=== PATIENT | female | born 1945 | race Caucasian/White ===

== ENCOUNTER 2017-05-24 10:38 | Emergency (ER) | payer MEDICARE, OTHER ==
[2017-05-24 10:52] VITALS: BP 150/70
[2017-05-24] MEDS ORDERED: Sodium Chloride 0.9% 10 ML Syringe FLUSH PRN (11:23)
[2017-05-24] MEDS ORDERED: Sodium Chloride 0.9% 1,000 ML IV ONE ×2 (11:24→12:20)
--- NOTE | 2017-05-24 11:28 | EDM.PDOC ---
ED HPI GENERAL MEDICAL PROBLEM - General Chief Complaint: General Stated Complaint: CHEMO ON THURSDAY-IN PAIN TODAY Time Seen by Provider: 05/24/17 11:05 Source of Information: Reports: Patient History Limitations: Reports: No Limitations - History of Present Illness INITIAL COMMENTS - FREE TEXT/NARRATIVE: 72-year-old female presents for evaluation and treatment of body aches and joint aches. Patient reports that she had her second round of chemotherapy on . She states that she developed severe body aches today. This occurred with her previous round of chemotherapy. She states that she was able to hold off over the weekend and was seen the following Thursday. She was given 5 L of fluid over 2-3 days. She states that the fluid helped greatly with the aches at that time. She is currently complaining of shooting pains throughout her abdomen , joints, legs and breasts. She denies any fevers, chills, vomiting, abdominal pain, diarrhea, cough, shortness of breath or chest pain. She states that she tried Tylenol and Benadryl for her symptoms. She also tried and nausea medication last night. Nausea is now mostly improved. She states with her first round of chemotherapy she did get Neulasta. She did not get this neulasta this time. Patient had vaginal bleeding around [facility]. She was subsequently diagnosed with uterine cancer in March. She had a hysterectomy with bilateral salpingo- oophorectomy on April 02. She has now been seeing Dr. Moore here in [facility]. Patient reports that she is only been taking Tylenol for pain. She does not want to take any narcotic pain medication. She states she has been avoiding Motrin as she took some last time and it increased her creatinine. Generalized Pain Score (Numeric/FACES): 7 - Related Data Allergies Allergy/AdvReac Type Severity Reaction Status Date / Time No Known Allergies Allergy Verified 05/24/17 10:52 Home Meds: Home Meds Irbesartan [Avapro] 300 mg PO DAILY 05/24/17 [History] Metoprolol/Hydrochlorothiazide [Metoprolol-HCTZ 100-25 MG] 1 tab PO DAILY [History] amLODIPine [Norvasc] 5 mg PO DAILY 05/24/17 [History] Past Medical History Cardiovascular History: Reports: Hypertension Oncologic (Cancer) History: Reports: Uterine - Past Surgical History Female Surgical History: Reports: Hysterectomy, Salpingo-Oophorectomy Social & Family History - Tobacco Use Smoking Status *Q: Never Smoker - Caffeine Use Caffeine Use: Reports: None - Recreational Drug Use Recreational Drug Use: No ED ROS GENERAL - Review of Systems Review Of Systems: See Below Constitutional: Denies: Fever, Chills Respiratory: Denies: Shortness of Breath, Cough Cardiovascular: Denies: Chest Pain GI/Abdominal: Reports: Abdominal Pain, Nausea. Denies: Diarrhea, Vomiting Musculoskeletal: Reports: Other (reports body aches). Denies: Joint Pain ED EXAM, GENERAL - Physical Exam Exam: See Below Exam Limited By: No Limitations General Appearance: Alert, WD/WN, No Apparent Distress Respiratory/Chest: No Respiratory Distress, Lungs Clear, Normal Breath Sounds Cardiovascular: Normal Peripheral Pulses, Regular Rate, Rhythm, No Murmur Neurological: Alert, Oriented, Normal Cognition Psychiatric: Normal Affect, Normal Mood Skin Exam: Warm, Dry, Normal Color Course - Vital Signs Last Recorded V/S: Last Vital Signs Temp 36.1 C 05/24/17 10:49 Pulse 66 05/24/17 10:49 Resp 16 05/24/17 10:49 BP 150/70 H 05/24/17 10:49 Pulse Ox 97 05/24/17 10:49 - Orders/Labs/Meds Orders: Active Orders 24 hr Category Date Time Status Peripheral IV Care [RC] . DIRECTED Care 05/24/17 11:23 Active Peripheral IV Insertion Adult [OM.PC] Routine Oth 05/24/17 11:23 Ordered Labs: Laboratory Tests 05/24/17 05/24/17 05/24/17 Range/Units 11:25 11:25 12:30 WBC 6.02 (3.98-10.04) K/mm3 RBC 3.46 L (3.98-5.22) M/mm3 Hgb 9.2 L (11.2-15.7) gm/L Hct 28.8 L (34.1-44.9) % MCV 83.2 (79.4-94.8) fl MCH 26.6 (25.6-32.2) pg MCHC 31.9 L (32.2-35.5) g/dl RDW Std Deviation 48.8 H (36.4-46.3) fL Plt Count 291 (182-369) K/mm3 MPV 10.5 (9.4-12.3) fl Neutrophils % (Manual) 79 H (40-60) % Band Neutrophils % 0 (0-10) % Lymphocytes % (Manual) 19 L (20-40) % Atypical Lymphs % 0 % Monocytes % (Manual) 2 (2-10) % Eosinophils % (Manual) 0 L (0.7-5.8) % Basophils % (Manual) 0 L (0.1-1.2) Platelet Estimate Adequate RBC Morph Comment Normal Sodium 138 (136-145) mEq/L Potassium 4.0 (3.5-5.1) mEq/L Chloride 104 (98-107) mEq/L Carbon Dioxide 26 (21-32) mEq/L Anion Gap 12.0 (5-15) BUN 25 H (7-18) mg/dL Creatinine 1.2 H (0.55-1.02) mg/dL Est Cr Clr Drug Dosing 40.25 mL/min Estimated GFR (MDRD) 44 (>60) mL/min BUN/Creatinine Ratio 20.8 H (14-18) Glucose 92 (83-115) mg/dL Calcium 8.8 (8.5-10.1) mg/dL Magnesium 1.8 (1.8-2.4) mg/dl Total Bilirubin 0.6 (0.2-1.0) mg/dL AST 41 H (15-37) U/L ALT 50 (14-59) U/L Alkaline Phosphatase 78 (46-116) U/L Total Protein 6.1 L (6.4-8.2) g/dl Albumin 3.1 L (3.4-5.0) g/dl Globulin 3.0 gm/dL Albumin/Globulin Ratio 1.0 (1-2) Urine Color Yellow (Yellow) Urine Appearance Clear (Clear) Urine pH 7.0 (5.0-8.0) Ur Specific [place] 1.015 (1.005-1.030) Urine Protein Negative (Negative) Urine Glucose (UA) Negative (Negative) Urine Ketones Negative (Negative) Urine Occult Blood Negative (Negative) Urine Nitrite Negative (Negative) Urine Bilirubin Negative (Negative) Urine Urobilinogen 0.2 (0.2-1.0) Ur Leukocyte Esterase Negative (Negative) Urine RBC Not seen (0-5) /hpf Urine WBC 0-5 (0-5) /hpf Ur Epithelial Cells 0-5 (0-5) /hpf Urine Bacteria Not seen (FEW) /hpf Urine Mucus Not seen (FEW) /hpf Meds: Medications Discontinued Medications Generic Name Dose Route Start Last Admin Trade Name Andrzej PRN Reason Stop Dose Admin Sodium Chloride 1,000 mls @ 999 mls/hr 05/24/17 11:24 05/24/17 11:35 Normal Saline IV 05/24/17 12:24 999 mls/hr ONETIME ONE Administration Sodium Chloride 1,000 mls @ 999 mls/hr 05/24/17 12:20 05/24/17 12:44 Normal Saline IV 05/24/17 13:20 999 mls/hr ONETIME ONE Administration Sodium Chloride 10 ml 05/24/17 11:23 05/24/17 11:35 Saline Flush FLUSH 10 ml ASDIRECTED PRN Administration Keep Vein Open - Re-Assessments/Exams Free Text/Narrative Re-Assessment/Exam: 05/24/17 13:53 labs returned: wbc is 6.02, hgb is 9.2 and plts are 291 sodium is 138, potassium is 4.0 and chloride is 104. anion gap is 12.0. creatinine is 1.2. glucose is 91 magnesium is 1.8 UA is negative for nitrites, leuks, protein, glucose and ketones, specific gravity is 1.015 Patient feels improved after 2 L of normal saline. She has declined pain medication throughout her stay. She has hydrocodone at home but does not want to take anything other than Tylenol for pain. We will discharge home at this time. Discharge instructions as documented. Departure - Departure Time of Disposition: 13:53 Disposition: Home, Self-Care 01 Condition: Fair Clinical Impression: Joint pain following chemotherapy - Discharge Information Referrals: Lucía Duque MD [Primary Care Provider] - Forms: ED Department Discharge Additional Instructions: Contact your oncologist office tomorrow to let them know you were here and received fluids. Your hemoglobin was also 9.2 in the ER today. This is something we should follow closely. go home nad rest. make sure you are drinking plenty of fluids. Take your pain medication you have at home if you need anything for pain. Please return to the ER if your symptoms change or worsen. - My Orders Last 24 Hours: My Active Orders 05/24/17 11:23 Peripheral IV Care [RC] . DIRECTED Peripheral IV Insertion Adult [OM.PC] Routine - Assessment/Plan Last 24 Hours: My Active Orders 05/24/17 11:23 Peripheral IV Care [RC] . DIRECTED Peripheral IV Insertion Adult [OM.PC] Routine
== END 2017-05-24 14:04 | disposition home or self-care (01) ==
LOC: JD.ED 10:38
DX: M25.50 Pain in unspecified joint (principal); G89.18 Other acute postprocedural pain; I10 Essential (primary) hypertension; Z90.710 Acquired absence of both cervix and uterus
CPT/HCPCS: 36415; 80053; 81001; 83735; 85025; 96360; 96361; 99283; J7040; J7050

== ENCOUNTER 2017-08-29 16:11 | Emergency (ER) | payer MEDICARE, OTHER ==
--- NOTE | 2017-08-29 16:22 | EDM.PDOC ---
ED HPI GENERAL MEDICAL PROBLEM - General Chief Complaint: General Stated Complaint: CARDIAC ISSUES Time Seen by Provider: 08/29/17 16:12 - History of Present Illness INITIAL COMMENTS - FREE TEXT/NARRATIVE: 72 year old female evaluated here in the emergency room with what looks like new onset atrial fibrillation. The patient was here receiving outpatient fluids and Zofran following chemotherapy and she was noted to be in a rapid irregular rhythm rate between 100 140. The patient is on Xarelto for a pulmonary embolism but has no history of atrial fibrillation in the past. The patient is having no chest pain chest pressure no palpitations no breathing difficulties no shortness of breath the patient is just finishing a several month regimen of chemotherapy for uterine cancer. She has no history of valvular heart disease. She's taking Xarelto 20 mg daily. - Related Data Allergies Allergy/AdvReac Type Severity Reaction Status Date / Time No Known Allergies Allergy Verified 08/29/17 16:19 Home Meds: Home Meds Irbesartan [Avapro] 300 mg PO DAILY 05/24/17 [History] Metoprolol/Hydrochlorothiazide [Metoprolol-HCTZ 100-25 MG] 1 tab PO DAILY [History] amLODIPine [Norvasc] 5 mg PO DAILY 05/24/17 [History] Acetaminophen [Tylenol] 650 mg PO DAILY PRN 07/23/17 [History] Hydrocodone/Acetaminophen [[place] 5-325] 1 tab PO Q6HR PRN 07/23/17 [History] Loperamide [Imodium] 1 tab PO ASDIRECTED PRN 07/23/17 [History] Omeprazole Magnesium [Prilosec Otc] 20 mg PO DAILY 07/23/17 [History] Prochlorperazine Maleate [Compazine] 10 mg PO QID PRN 07/23/17 [History] Rivaroxaban [Xarelto] 20 mg PO DAILY 07/23/17 [History] Sennosides/Docusate Sodium [Senokot-S Tablet] 1 tab PO BID PRN 07/23/17 [History ] diphenhydrAMINE [Benadryl] 25 mg PO BID 07/23/17 [History] Past Medical History Cardiovascular History: Reports: Hypertension Oncologic (Cancer) History: Reports: Uterine - Past Surgical History Female Surgical History: Reports: Hysterectomy, Salpingo-Oophorectomy Social & Family History - Tobacco Use Smoking Status *Q: Never Smoker - Caffeine Use Caffeine Use: Reports: None - Recreational Drug Use Recreational Drug Use: No ED ROS GENERAL - Review of Systems Review Of Systems: See Below Constitutional: Reports: Other (Patient has had some generalized weakness and dizziness following her last round of chemotherapy on 2 days ago) HEENT: Reports: No Symptoms Respiratory: Reports: No Symptoms Cardiovascular: Reports: No Symptoms GI/Abdominal: Reports: Nausea. Denies: Abdominal Pain, Constipation, Diarrhea : Reports: No Symptoms Neurological: Reports: No Symptoms ED EXAM, GENERAL - Physical Exam Exam: See Below Exam Limited By: No Limitations General Appearance: Alert, No Apparent Distress Head: Atraumatic, Normocephalic Neck: Normal Inspection, Supple, Non-Tender, Full Range of Motion. No: Lymphadenopathy (L), Lymphadenopathy (R), Thyromegaly Respiratory/Chest: No Respiratory Distress, Lungs Clear, Normal Breath Sounds Cardiovascular: No Edema, Tachycardia (Rate 110 to 140s), Irregularly Irregular GI/Abdominal: Normal Bowel Sounds, Soft EKG INTERPRETATION EKG Date: 08/29/17 Rhythm: A-Fib Killen: LAD-Left Killen Deviation P-Wave: Absent QRS: Normal ST-T: Normal QT: Normal Comparison: NA - No Prior EKG Course - Vital Signs Last Recorded V/S: Last Vital Signs Temp 36.1 C 08/29/17 16:20 Pulse 138 H 08/29/17 16:20 Resp 22 H 08/29/17 16:20 BP 120/90 08/29/17 16:20 Pulse Ox 96 08/29/17 16:20 - Orders/Labs/Meds Orders: Active Orders 24 hr Category Date Time Status Chest 1V Frontal [CR] Stat Exams 08/29/17 16:22 Taken Sodium Chloride 0.9% [Normal Saline] 1,000 ml Med 08/29/17 17:45 Active IV ASDIRECTED Medication Orders Sodium Chloride (Normal Saline) 1,000 mls @ 300 mls/hr IV ASDIRECTED SOFI Last Admin: 08/29/17 17:42 Dose: 300 mls/hr Labs: Laboratory Tests 08/29/17 08/29/17 08/29/17 Range/Units 16:35 16:35 16:35 WBC 4.11 (3.98-10.04) K/mm3 RBC 3.16 L (3.98-5.22) M/mm3 Hgb 9.3 L (11.2-15.7) gm/L Hct 28.4 L (34.1-44.9) % MCV 89.9 (79.4-94.8) fl MCH 29.4 (25.6-32.2) pg MCHC 32.7 (32.2-35.5) g/dl RDW Std Deviation 64.6 H (36.4-46.3) fL Plt Count 314 (182-369) K/mm3 MPV 9.6 (9.4-12.3) fl Neutrophils % (Manual) 82 H (40-60) % Band Neutrophils % 0 (0-10) % Lymphocytes % (Manual) 16 L (20-40) % Atypical Lymphs % 0 % Monocytes % (Manual) 2 (2-10) % Eosinophils % (Manual) 0 L (0.7-5.8) % Basophils % (Manual) 0 L (0.1-1.2) Platelet Estimate Adequate Poikilocytosis 1+ slight Anisocytosis 2+ moderate Tear Drop Cells Few Ovalocytes 2+ moderate PT 13.7 H (8.0-13.0) SECONDS INR 1.24 APTT 29 (22-36) SECONDS Sodium 139 (136-145) mEq/L Potassium 4.1 (3.5-5.1) mEq/L Chloride 101 (98-107) mEq/L Carbon Dioxide 23 (21-32) mEq/L Anion Gap 19.1 H (5-15) BUN 33 H (7-18) mg/dL Creatinine 1.5 H (0.55-1.02) mg/dL Est Cr Clr Drug Dosing 33.45 mL/min Estimated GFR (MDRD) 34 (>60) mL/min BUN/Creatinine Ratio 22.0 H (14-18) Glucose 152 H (83-115) mg/dL Calcium 8.2 L (8.5-10.1) mg/dL Magnesium 1.5 L (1.8-2.4) mg/dl Total Bilirubin 0.8 (0.2-1.0) mg/dL AST 93 H (15-37) U/L ALT 144 H (14-59) U/L Alkaline Phosphatase 141 H (46-116) U/L Troponin I < 0.017 (0.00-0.056) ng/mL Total Protein 7.0 (6.4-8.2) g/dl Albumin 3.5 (3.4-5.0) g/dl Globulin 3.5 gm/dL Albumin/Globulin Ratio 1.0 (1-2) TSH 3rd Generation 0.487 (0.358-3.74) uIU/mL Meds: Medications Generic Name Dose Route Start Last Admin Trade Name Freq PRN Reason Stop Dose Admin Sodium Chloride 1,000 mls @ 300 mls/hr 08/29/17 17:45 08/29/17 17:42 Normal Saline IV 300 mls/hr ASDIRECTED SOFI Administration Discontinued Medications Generic Name Dose Route Start Last Admin Trade Name Freq PRN Reason Stop Dose Admin Magnesium Sulfate 2 gm/ Premix 50 mls @ 25 mls/hr 08/29/17 17:14 08/29/17 17: 43 IV 08/29/17 19:13 25 mls/hr ONETIME ONE Administration - Re-Assessments/Exams Free Text/Narrative Re-Assessment/Exam: 08/29/17 20:24 Patient's rate has come down substantially. She was found to be little low on her magnesium she was given 2 g IV. She was also given some more fluids and is doing better I am not can increase her medication especially with her having lightheadedness because of dehydration with the chemotherapy. However she stated the close follow-up for this is absolutely uncertain when this atrial fibrillation started however the patient is on therapeutic Xarelto 20 mg daily this should be continued. However records need to be reviewed to be certain she does not have valvular heart disease. Patient is in agreement to following up in the clinic early this next week. The patient does have Zofran at home however she's never used it IV advised her to use it so she can keep fluids down and hopefully a more nutritional diet. Patient's troponin was noted to be normal today chest x-ray nonrevealing TSH normal. Departure - Departure Time of Disposition: 20:27 Disposition: Home, Self-Care 01 Clinical Impression: Atrial fibrillation Referrals: Lucía Duque MD [Primary Care Provider] - Forms: ED Department Discharge Additional Instructions: Return to the emergency room with any questions problems or worsening symptoms. Follow up with her regular physician this next week. Continue your routine medications including the Xaralto. Use your Zofran as needed to prevent dehydration and to hopefully make it feel better. - My Orders Last 24 Hours: My Active Orders 08/29/17 16:22 Chest 1V Frontal [CR] Stat 08/29/17 17:45 Sodium Chloride 0.9% [Normal Saline] 1,000 ml IV ASDIRECTED - Assessment/Plan Last 24 Hours: My Active Orders 08/29/17 16:22 Chest 1V Frontal [CR] Stat 08/29/17 17:45 Sodium Chloride 0.9% [Normal Saline] 1,000 ml IV ASDIRECTED
[2017-08-29 16:29] VITALS: BP 120/90
[2017-08-29] MEDS ORDERED: Magnesium Sulfate/Water 2 GM in Premix Bag 1 BAG IV ONE (17:14)
[2017-08-29] MEDS ORDERED: Sodium Chloride 0.9% 1,000 ML IV SCH (17:45)
--- NOTE | 2017-08-30 09:54 | CR ---
Chest: Portable view of the chest was obtained. Comparison: No prior study. Heart size appears within normal limits. Mild tortuosity of the thoracic aorta is seen. Slight scoliosis and degenerative change is identified within the thoracic spine. Minimal discoid atelectasis is noted within the lateral left costophrenic angle. Lungs otherwise are clear. Impression: 1. Incidental findings. Nothing acute is identified on portable chest x-ray. Diagnostic code #2
== END 2017-08-29 20:45 | disposition home or self-care (01) ==
LOC: JD.ED 16:11
DX: I48.91 Unspecified atrial fibrillation (principal); I10 Essential (primary) hypertension; Z90.710 Acquired absence of both cervix and uterus; Z79.899 Other long term (current) drug therapy
CPT/HCPCS: 36415; 71010; 80053; 83735; 84443; 84484; 85025; 85610; 85730; 93005; 96360; 96361; 96365; 96366; 99285; J2405; J7040; J7050; 93010; 99284-25; J3475

== ENCOUNTER 2017-09-06 17:19 | Inpatient (IN) | payer MEDICARE, OTHER ==
[2017-09-06] MEDS ORDERED: Sodium Chloride 0.9% 10 ML Syringe FLUSH PRN (17:34)
--- NOTE | 2017-09-06 17:42 | EDM.PDOC ---
ED HPI GENERAL MEDICAL PROBLEM - General Chief Complaint: General Stated Complaint: VOMITING/ FALL/ DEHYDRATION Time Seen by Provider: 09/06/17 17:25 Source of Information: Reports: Patient, Family History Limitations: Reports: No Limitations - History of Present Illness INITIAL COMMENTS - FREE TEXT/NARRATIVE: The patient presents with syncope, generalized weakness and dehydration. She is currently being treated for uterine cancer. She had a hystorectomy with salpingoophorectomy and now chemo. She is on her last treatment. This was given to her over a week ago. It has been the worse so fare. She has lots of nausea and vomiting. She is trying to eat and drink but it is hard to keep hydrated. She traveled down to [place] to see her [employer]/Onc doctor and she tried to keep up with the fluids. She had some family over for supper tonight and she got lightheaded and fell out of her chair. Her says she did hit her head. She was out for a few seconds. She has pain to her left shoulder. She did not hurt her head. She has no headache now. She was recently diagnosed with atrial fib. She is on xeralto for PE and now A-fib. She has needed IV hydration and blood transfusion through the rounds of chemo. Onset: Sudden Duration: Minutes: Severity: Moderate Improves with: Reports: None Worsens with: Reports: None Context: Reports: Activity (She was sitting at the table and just finished supper) Associated Symptoms: Reports: Nausea/Vomiting, Weakness. Denies: Chest Pain, Fever/Chills, Loss of Appetite, Shortness of Breath Left Shoulder Pain Score (Numeric/FACES): 4 - Related Data Allergies Allergy/AdvReac Type Severity Reaction Status Date / Time No Known Allergies Allergy Verified 08/29/17 16:19 Home Meds: Home Meds Irbesartan [Avapro] 300 mg PO DAILY 05/24/17 [History] Metoprolol/Hydrochlorothiazide [Metoprolol-HCTZ 100-25 MG] 1 tab PO DAILY [History] amLODIPine [Norvasc] 5 mg PO DAILY 05/24/17 [History] Acetaminophen [Tylenol] 650 mg PO DAILY PRN 07/23/17 [History] Loperamide [Imodium] 1 tab PO ASDIRECTED PRN 07/23/17 [History] Omeprazole Magnesium [Prilosec Otc] 20 mg PO DAILY 07/23/17 [History] Prochlorperazine Maleate [Compazine] 10 mg PO QID PRN 07/23/17 [History] Rivaroxaban [Xarelto] 20 mg PO DAILY 07/23/17 [History] Sennosides/Docusate Sodium [Senokot-S Tablet] 1 tab PO BID PRN 07/23/17 [History ] Past Medical History Cardiovascular History: Reports: Hypertension Oncologic (Cancer) History: Reports: Uterine - Past Surgical History Female Surgical History: Reports: Hysterectomy, Salpingo-Oophorectomy Social & Family History - Tobacco Use Smoking Status *Q: Never Smoker - Caffeine Use Caffeine Use: Reports: None - Recreational Drug Use Recreational Drug Use: No ED ROS GENERAL - Review of Systems Review Of Systems: See Below Constitutional: Reports: No Symptoms HEENT: Reports: No Symptoms Respiratory: Reports: No Symptoms Cardiovascular: Reports: Syncope Endocrine: Reports: No Symptoms GI/Abdominal: Reports: No Symptoms : Reports: No Symptoms Musculoskeletal: Reports: Shoulder Pain (Left) Skin: Reports: No Symptoms Neurological: Reports: No Symptoms ED EXAM, GENERAL - Physical Exam Exam: See Below Exam Limited By: No Limitations General Appearance: Alert, No Apparent Distress Ears: Normal External Exam Nose: Normal Inspection Head: Atraumatic, Normocephalic Neck: Normal Inspection Respiratory/Chest: No Respiratory Distress, Lungs Clear, Normal Breath Sounds Cardiovascular: Regular Rate, Rhythm, No Edema, No Murmur GI/Abdominal: Soft, Non-Tender, No Organomegaly, No Mass Back Exam: Normal Inspection Extremities: Normal Inspection Neurological: Alert, Oriented, No Motor/Sensory Deficits Skin Exam: Warm, Dry Course - Vital Signs Last Recorded V/S: Last Vital Signs Temp 96.1 F 09/06/17 17:32 Pulse 91 09/06/17 17:32 Resp 20 09/06/17 17:32 BP 123/85 09/06/17 17:32 Pulse Ox 100 09/06/17 17:32 - Orders/Labs/Meds Orders: Active Orders 24 hr Category Date Time Status Cardiac Monitoring [RC] . DIRECTED Care 09/06/17 17:34 Active EKG Documentation Completion [RC] STAT Care 09/06/17 17:35 Active Oxygen Therapy [RC] PRN Care 09/06/17 17:34 Active Peripheral IV Care [RC] . DIRECTED Care 09/06/17 17:34 Active Head wo Cont [CT] Stat Exams 09/06/17 17:35 Ordered Shoulder Comp Lt [CR] Stat Exams 09/06/17 17:35 Taken Ondansetron [Zofran] Med 09/06/17 19:23 Once 4 mg IVPUSH ONETIME ONE Sodium Chloride 0.9% [Normal Saline] 1,000 ml Med 09/06/17 17:45 Active IV .BOLUS Sodium Chloride 0.9% [Saline Flush] Med 09/06/17 17:34 Active 10 ml FLUSH ASDIRECTED PRN Sodium Chloride 0.9% with KCl 20 mEq @ 150 mL/Hr (1000 Med 09/06/17 19:30 Ordered mL) NS + KCl 20mEq/L [Normal Saline with 20 mEq KCl] 1,000 ml IV ASDIRECTED Peripheral IV Insertion Adult [OM.PC] Stat Oth 09/06/17 17:34 Ordered Medication Orders Sodium Chloride (Normal Saline) 1,000 mls @ 1,000 mls/hr IV .BOLUS SOFI Last Admin: 09/06/17 17:50 Dose: 1,000 mls/hr Potassium Chloride/Sodium Chloride (Normal Saline With 20 Meq Kcl) 1,000 mls @ 150 mls/hr IV ASDIRECTED SOFI Ondansetron HCl (Zofran) 4 mg IVPUSH ONETIME ONE Stop: 09/06/17 19:24 Sodium Chloride (Saline Flush) 10 ml FLUSH ASDIRECTED PRN PRN Reason: Keep Vein Open Last Admin: 09/06/17 17:50 Dose: 10 ml Labs: Laboratory Tests 09/06/17 09/06/17 Range/Units 17:45 17:45 WBC 3.16 L (3.98-10.04) K/mm3 RBC 2.85 L (3.98-5.22) M/mm3 Hgb 8.7 L (11.2-15.7) gm/L Hct 25.3 L (34.1-44.9) % MCV 88.8 (79.4-94.8) fl MCH 30.5 (25.6-32.2) pg MCHC 34.4 (32.2-35.5) g/dl RDW Std Deviation 56.0 H (36.4-46.3) fL Plt Count 145 L (182-369) K/mm3 MPV 11.1 (9.4-12.3) fl Neut % (Auto) 22.5 L (34.0-71.1) % Lymph % (Auto) 38.0 (19.3-51.7) % [place] % (Auto) 33.5 H (4.7-12.5) % Eos % (Auto) 0 L (0.7-5.8) Baso % (Auto) 0.3 (0.1-1.2) % Neut # (Auto) 0.71 L (1.56-6.13) K/mm3 Lymph # (Auto) 1.20 (1.18-3.74) K/mm3 [place] # (Auto) 1.06 H (0.24-0.36) K/mm3 Eos # (Auto) 0.00 L (0.04-0.36) K/mm3 Baso # (Auto) 0.01 (0.01-0.08) K/mm3 Manual Slide Review Abnormal smear Sodium 129 L (136-145) mEq/L Potassium 2.7 L (3.5-5.1) mEq/L Chloride 90 L (98-107) mEq/L Carbon Dioxide 24 (21-32) mEq/L Anion Gap 17.7 H (5-15) BUN 27 H (7-18) mg/dL Creatinine 1.6 H (0.55-1.02) mg/dL Est Cr Clr Drug Dosing 30.19 mL/min Estimated GFR (MDRD) 32 (>60) mL/min BUN/Creatinine Ratio 16.9 (14-18) Glucose 149 H (83-115) mg/dL Calcium 8.4 L (8.5-10.1) mg/dL Total Bilirubin 1.2 H (0.2-1.0) mg/dL AST 20 (15-37) U/L ALT 46 (14-59) U/L Alkaline Phosphatase 86 (46-116) U/L Troponin I < 0.017 (0.00-0.056) ng/mL Total Protein 6.5 (6.4-8.2) g/dl Albumin 2.7 L (3.4-5.0) g/dl Globulin 3.8 gm/dL Albumin/Globulin Ratio 0.7 L (1-2) Meds: Medications Generic Name Dose Route Start Last Admin Trade Name Freq PRN Reason Stop Dose Admin Sodium Chloride 1,000 mls @ 1,000 mls/hr 09/06/17 17:45 09/06/17 17:50 Normal Saline IV 1,000 mls/hr .BOLUS SOFI Administration Potassium Chloride/Sodium Chloride 1,000 mls @ 150 mls/hr 09/06/17 19:30 Normal Saline With 20 Meq Kcl IV ASDIRECTED SOFI Ondansetron HCl 4 mg 09/06/17 19:23 Zofran IVPUSH 09/06/17 19:24 ONETIME ONE Sodium Chloride 10 ml 09/06/17 17:34 09/06/17 17:50 Saline Flush FLUSH 10 ml ASDIRECTED PRN Administration Keep Vein Open - Re-Assessments/Exams Free Text/Narrative Re-Assessment/Exam: 09/06/17 17:44 I ordered an IV NS 1L bolus, labs, EKG, CT of her head and x-ray of her left shoulder. 09/06/17 19:08 Her WBC was low at 3.16. Her Hgb is low at 8.7. Her platelets are low at 145. Her Na is low at 129. Her K was low at 2.7. Her creatinine is elevated at 1.6. Her calcium is low at 8.4. Her troponin is negative. The x-ray of her shoulder I thought showed a fracture. It was only in one view. I had [facility] look at it and they felt that was an osteophyte and there was nothing acute seen on x-ray. She is in CT right now. 09/06/17 19:10 Her EKG shows A-fib at a rate of 81 with some borderline T wave abnormalities in the anterior leads. 09/06/17 19:[address] of her head shows nothing acute. I have ordered an IV NS with 20meq of KCL at 150mL/hr and zofran 4mg IV. 09/06/17 19:28 I feel she is still to weak to go home. I called Dr Bolden and she agreed to the admission. Departure - Departure Time of Disposition: 19:30 Disposition: Admitted As Inpatient 67 Condition: Poor Clinical Impression: Generalized weakness, Pancytopenia due to chemotherapy, Hyponatremia, Hypokalemia Atrial fibrillation Qualifiers: Atrial fibrillation type: chronic Qualified Code(s): I48.2 - Chronic atrial fibrillation Syncope Qualifiers: Syncope type: unspecified Qualified Code(s): R55 - Syncope and collapse Uterine cancer Qualifiers: Malignant neoplasm of uterus location: unspecified site of uterus Qualified Code(s): C55 - Malignant neoplasm of uterus, part unspecified - Discharge Information Referrals: Lucía Duque MD [Primary Care Provider] - Forms: ED Department Discharge - My Orders Last 24 Hours: My Active Orders 09/06/17 17:34 Cardiac Monitoring [RC] . DIRECTED Oxygen Therapy [RC] PRN Peripheral IV Care [RC] . DIRECTED Sodium Chloride 0.9% [Saline Flush] 10 ml FLUSH ASDIRECTED PRN Peripheral IV Insertion Adult [OM.PC] Stat 09/06/17 17:35 EKG Documentation Completion [RC] STAT Head wo Cont [CT] Stat Shoulder Comp Lt [CR] Stat 09/06/17 17:45 Sodium Chloride 0.9% [Normal Saline] 1,000 ml IV .BOLUS 09/06/17 19:23 Ondansetron [Zofran] 4 mg IVPUSH ONETIME ONE 09/06/17 19:30 Sodium Chloride 0.9% with KCl 20 mEq @ 150 mL/Hr (1000 mL) NS + KCl 20mEq/L [ Normal Saline with 20 mEq KCl] 1,000 ml IV ASDIRECTED - Assessment/Plan Last 24 Hours: My Active Orders 09/06/17 17:34 Cardiac Monitoring [RC] . DIRECTED Oxygen Therapy [RC] PRN Peripheral IV Care [RC] . DIRECTED Sodium Chloride 0.9% [Saline Flush] 10 ml FLUSH ASDIRECTED PRN Peripheral IV Insertion Adult [OM.PC] Stat 09/06/17 17:35 EKG Documentation Completion [RC] STAT Head wo Cont [CT] Stat Shoulder Comp Lt [CR] Stat 09/06/17 17:45 Sodium Chloride 0.9% [Normal Saline] 1,000 ml IV .BOLUS 09/06/17 19:23 Ondansetron [Zofran] 4 mg IVPUSH ONETIME ONE 09/06/17 19:30 Sodium Chloride 0.9% with KCl 20 mEq @ 150 mL/Hr (1000 mL) NS + KCl 20mEq/L [ Normal Saline with 20 mEq KCl] 1,000 ml IV ASDIRECTED
[2017-09-06] MEDS ORDERED: Sodium Chloride 0.9% 1,000 ML IV SCH (17:45)
[2017-09-06] MEDS ORDERED: Ondansetron 4 MG/2 ML SDV IVPUSH ONE (19:23)
[2017-09-06] MEDS: NS + KCl 20mEq/L 1,000 ML IV SCH (19:31)
--- NOTE | 2017-09-06 19:55 | PCM.HP ---
H&P History of Present Illness - General Date of Service: 09/06/17 Admit Problem/Dx: Admission Diagnosis/Problem Admission Diagnosis/Problem Syncope Source of Information: Patient, Family, Provider History Limitations: Reports: No Limitations - History of Present Illness Initial Comments - Free Text/Narative: 72 year old female recently completed 6 cycles of CTX, drove back from [place] where she followed up with her surgeon of record. Presents after a 4 day fast with no solid food and minimal liquid ingestion; she passed out at the dinner table. She has had recent blood transfusion post chemo, currently her counts appear to be stable. Clarification regrading her baseline and the adam is needed. Additionally she recently developed A fib; moreover has been diagnosed with a DVT, and was started on Xarelto. She does not have a port because her veins are "too big" and she does not need it. Lab results document electrolyte abnormalities and dehydration with acute renal failure. She reports have 3-4 glasses of water/beverage in 5 days and nothing to eat. Onset of Symptoms: Reports: Gradual Duration of Symptoms: Reports: Week(s):, Getting Worse Location: Reports: Generalized Quality: Reports: Same as Previous Episode Improves with: Reports: Medication Worsens with: Reports: None Associated Symptoms: Reports: Loss of Appetite, Malaise, Nausea/Vomiting, Weakness Left Shoulder Pain Score (Numeric/FACES): 4 - Related Data Allergies/Adverse Reactions: Allergies Allergy/AdvReac Type Severity Reaction Status Date / Time No Known Allergies Allergy Verified 08/29/17 16:19 Home Medications: Home Meds Irbesartan [Avapro] 300 mg PO DAILY 05/24/17 [History] Metoprolol/Hydrochlorothiazide [Metoprolol-HCTZ 100-25 MG] 1 tab PO DAILY [History] amLODIPine [Norvasc] 5 mg PO DAILY 05/24/17 [History] Acetaminophen [Tylenol] 650 mg PO DAILY PRN 07/23/17 [History] Loperamide [Imodium] 1 tab PO ASDIRECTED PRN 07/23/17 [History] Omeprazole Magnesium [Prilosec Otc] 20 mg PO DAILY 07/23/17 [History] Prochlorperazine Maleate [Compazine] 10 mg PO QID PRN 07/23/17 [History] Rivaroxaban [Xarelto] 20 mg PO DAILY 07/23/17 [History] Sennosides/Docusate Sodium [Senokot-S Tablet] 1 tab PO BID PRN 07/23/17 [History ] Past Medical History Cardiovascular History: Reports: Hypertension Psychiatric History: Reports: Depression Oncologic (Cancer) History: Reports: Uterine - Past Surgical History Female Surgical History: Reports: Hysterectomy, Salpingo-Oophorectomy Social & Family History - Tobacco Use Smoking Status *Q: Never Smoker Used Tobacco, but Quit: Yes Month Tobacco Last Used: 50 yrs ago - Caffeine Use Caffeine Use: Reports: None - Recreational Drug Use Recreational Drug Use: No H&P Review of Systems - Review of Systems: Review Of Systems: See Below General: Reports: Malaise, Weakness, Fatigue, Decreased Appetite HEENT: Reports: No Symptoms Pulmonary: Reports: No Symptoms Cardiovascular: Reports: Lightheadedness Gastrointestinal: Reports: Decreased Appetite, Nausea, Vomiting Genitourinary: Reports: Other (decreased) Musculoskeletal: Reports: No Symptoms Skin: Reports: No Symptoms Psychiatric: Reports: No Symptoms Neurological: Reports: Dizziness Hematologic/Lymphatic: Reports: Anemia Immunologic: Reports: No Symptoms Exam - Exam Exam: See Below - Vital Signs Vital Signs: Last Vital Signs Temp 35.6 C 09/06/17 17:32 Pulse 91 09/06/17 17:32 Resp 20 09/06/17 17:32 BP 123/85 09/06/17 17:32 Pulse Ox 100 09/06/17 17:32 Weight: 90.718 kg - Exam Quality Assessment: DVT Prophylaxis General: Alert, Oriented, Cooperative HEENT: Conjunctiva Clear, Pupils Equal, Pupils Reactive, Glasses, PERRLA Neck: Supple, Trachea Midline Lungs: Normal Respiratory Effort, Decreased Breath Sounds Cardiovascular: Regular Rate, Irregular Rhythm, Tachycardia GI/Abdominal Exam: Normal Bowel Sounds, Soft, Non-Tender, No Organomegaly, No Distention (Female) Exam: Deferred Rectal (Female) Exam: Deferred Back Exam: Normal Inspection Extremities: Normal Inspection, Slow Capillary Refill Skin: Warm Neurological: Cranial Nerves Intact Neuro Extensive - Mental Status: Alert, Oriented x3 Neuro Extensive - Motor, Sensory, Reflexes: CN II-XII Intact Psychiatric: Alert - Patient Data Result Diagrams: 09/06/17 17:45 09/06/17 17:45 *Q Meaningful Use (ADM) - VTE *Q VTE Criteria *Q: - Stroke *Q Stroke Criteria *Q: - AMI *Q AMI Criteria *Q: - Problem List (1) Atrial fibrillation SNOMED Code(s): 53095927 ICD Code: I48.91 - UNSPECIFIED ATRIAL FIBRILLATION Status: Acute Current Visit: Yes Qualifiers: Atrial fibrillation type: chronic Qualified Code(s): I48.2 - Chronic atrial fibrillation (2) Generalized weakness SNOMED Code(s): 89050183 ICD Code: R53.1 - WEAKNESS Status: Acute Current Visit: Yes (3) Hypokalemia SNOMED Code(s): 39550715 ICD Code: E87.6 - HYPOKALEMIA Status: Acute Current Visit: Yes (4) Hyponatremia SNOMED Code(s): 67913362 ICD Code: E87.1 - HYPO-OSMOLALITY AND HYPONATREMIA Status: Acute Current Visit: Yes (5) Pancytopenia due to chemotherapy SNOMED Code(s): 3948894 ICD Code: D61.810 - ANTINEOPLASTIC CHEMOTHERAPY INDUCED PANCYTOPENIA Status : Acute Current Visit: Yes (6) Syncope SNOMED Code(s): 132995343 ICD Code: R55 - SYNCOPE AND COLLAPSE Status: Acute Current Visit: Yes Qualifiers: Syncope type: unspecified Qualified Code(s): R55 - Syncope and collapse (7) Uterine cancer SNOMED Code(s): 588463075 ICD Code: C55 - MALIGNANT NEOPLASM OF UTERUS, PART UNSPECIFIED Status: Acute Current Visit: Yes Qualifiers: Malignant neoplasm of uterus location: unspecified site of uterus Qualified Code(s): C55 - Malignant neoplasm of uterus, part unspecified (8) Joint pain following chemotherapy SNOMED Code(s): 93281695 ICD Code: M25.50 - PAIN IN UNSPECIFIED JOINT; G89.18 - OTHER ACUTE POSTPROCEDURAL PAIN Status: Acute Current Visit: No Problem List Initiated/Reviewed/Updated: Yes Orders Last 24hrs: Medication Orders Sodium Chloride (Normal Saline) 1,000 mls @ 1,000 mls/hr IV .BOLUS [facility] Last Admin: 09/06/17 17:50 Dose: 1,000 mls/hr Potassium Chloride/Sodium Chloride (Normal Saline With 20 Meq Kcl) 1,000 mls @ 150 mls/hr IV ASDIRECTED SOFI Last Admin: 11/05/17 19:31 Dose: 150 mls/hr Sodium Chloride (Saline Flush) 10 ml FLUSH ASDIRECTED PRN PRN Reason: Keep Vein Open Last Admin: 09/06/17 17:50 Dose: 10 ml Assessment/Plan Comment:: Impression: Endometrial cancer S/P CTX, 6 cycles Dehydration with subsequent syncopal episode ARF Abnormal electrolytes: K, Na Pancytopenia Chronic HTN Plan: IVF Clear liquid diet advance as tolerated Antiemetic Megace Dietary consult SW/PT/OT consults Home meds Daily labs EMR from [facility] DVT/GI prophylaxis
[2017-09-06] MEDS ORDERED: Magnesium Sulfate/Water 2 GM in Premix Bag 1 BAG IV ONE (19:58)
[2017-09-06] MEDS ORDERED: Ondansetron 4 MG/2 ML SDV IVPUSH PRN (19:58)
[2017-09-06] MEDS ORDERED: Scopolamine 1.5 MG Transdermal Patch TRDERM PRN (19:59)
[2017-09-06] MEDS ORDERED: Acetaminophen 325 MG Tab PO PRN (20:01)
[2017-09-06] MEDS ORDERED: Loperamide 2 MG Cap PO PRN (20:01)
[2017-09-06] MEDS ORDERED: Sodium Chloride 0.9% 1,000 ML IV ONE (20:05)
[2017-09-06] MEDS ORDERED: FLU Vacc TS 2017-18 (65yr UP)/PF 180 MCG/0.5 ML Syringe IM ONE (20:45)
[2017-09-06] MEDS: Metoprolol Tartrate 50 MG Tab PO SCH ×2 (21:34→22:13)
[2017-09-06] MEDS: Pantoprazole 40 MG Tab.CR PO SCH (21:35)
[2017-09-06] MEDS: Megestrol Susp 40 MG/ML 10 ML UD Cup PO SCH (21:36)
[2017-09-07] MEDS: NS + KCl 20mEq/L 1,000 ML IV SCH ×2 (03:58→12:20)
[2017-09-07] MEDS: Pantoprazole 40 MG Tab.CR PO SCH ×2 (05:52→17:05)
--- NOTE | 2017-09-07 07:38 | CT ---
Head CT Technique: Multiple axial sections through the brain were obtained. Intravenous contrast was not utilized. Comparison: No previous intracranial imaging. Findings: Ventricles along with basal cisterns and sulci over the convexities are mildly prominent. Mild diminished density is noted within the periventricular and subcortical white matter which is compatible with small vessel ischemic demyelination change. No other abnormal parenchymal densities are seen. No evidence of intracranial hemorrhage. No midline shift or mass effect is seen. Bone window settings were reviewed which show mucosal thickening within the sphenoid sinus and ethmoid sinuses. No air-fluid levels are seen. No acute calvarial abnormality is identified. Mild atherosclerotic calcification is seen within the carotid siphon. No acute calvarial abnormality is identified. Impression: 1. Sinus findings which are likely pre-existing and due to chronic sinusitis. 2. Mild senescent change as described above. 3. Nothing acute is identified on noncontrast head CT study. Diagnostic code #2 I agree with preliminary report issued by [facility] ([facility] preliminary report dictated on 09/06/17, 8:29 PM Central Time)
--- NOTE | 2017-09-07 07:38 | CR ---
Left shoulder: Four views of the left shoulder were obtained. Inferior spur is seen off the medial femoral head. Glenohumeral joint is otherwise unremarkable. Minimal inferior osteophytes are seen off the acromioclavicular joint. Minimal soft tissue calcification is seen compatible with minimal calcific tendinitis. No acute fracture or dislocation is identified. Impression: 1. Mild degenerative change. Minimal calcific tendinitis. 2. Left shoulder study shows nothing acute. Diagnostic code #2 I agree with preliminary report issued by [facility] ([facility] preliminary report dictated on 09/06/17, 7:45 PM Central Time)
[2017-09-07] MEDS: Rivaroxaban 10 MG Tab PO SCH (09:27)
[2017-09-07] MEDS: Metoprolol Tartrate 50 MG Tab PO SCH ×2 (09:27→20:24)
[2017-09-07] MEDS: Megestrol Susp 40 MG/ML 10 ML UD Cup PO SCH ×2 (09:28→20:23)
[2017-09-07] MEDS ORDERED: Magnesium Sulfate/Water 2 GM in Premix Bag 1 BAG IV ONE (11:47)
--- NOTE | 2017-09-07 11:47 | PCM.PN ---
- General Info Date of Service: 09/07/17 Subjective Update: Denies lightheadedness, dizziness, SOB, N/V; wants to eat and enjoyed her breakfast and lunch. Functional Status: Reports: Tolerating Diet, Ambulating, Urinating - Review of Systems General: Reports: Weakness (improved) HEENT: Reports: No Symptoms Pulmonary: Reports: No Symptoms Cardiovascular: Reports: No Symptoms Gastrointestinal: Reports: No Symptoms Genitourinary: Reports: No Symptoms Musculoskeletal: Reports: No Symptoms Skin: Reports: No Symptoms Neurological: Reports: No Symptoms Psychiatric: Reports: No Symptoms - Patient Data Vitals - Most Recent: Last Vital Signs Temp 36.1 C 09/07/17 07:52 Pulse 106 H 09/07/17 09:27 Resp 19 09/07/17 07:52 BP 129/80 09/07/17 09:27 Pulse Ox 96 09/07/17 07:52 Weight - Most Recent: 90.265 kg I&O - Last 24 Hours: Intake & Output 09/06/17 09/07/17 09/07/17 22:59 06:59 14:59 Intake Total 1991 500 Output Total 650 Balance 1341 500 Lab Results Last 24 Hours: Laboratory Results - last 24 hr 09/07/17 09/07/17 Range/Units 06:10 06:10 WBC 3.49 L (3.98-10.04) K/mm3 RBC 2.64 L (3.98-5.22) M/mm3 Hgb 7.9 L (11.2-15.7) gm/L Hct 23.8 L (34.1-44.9) % MCV 90.2 (79.4-94.8) fl MCH 29.9 (25.6-32.2) pg MCHC 33.2 (32.2-35.5) g/dl RDW Std Deviation 56.1 H (36.4-46.3) fL Plt Count 126 L (182-369) K/mm3 MPV 10.9 (9.4-12.3) fl Neut % (Auto) 27.8 L (34.0-71.1) % Lymph % (Auto) 34.4 (19.3-51.7) % [place] % (Auto) 31.2 H (4.7-12.5) % Eos % (Auto) 0 L (0.7-5.8) Baso % (Auto) 0.0 L (0.1-1.2) % Neut # (Auto) 0.97 L (1.56-6.13) K/mm3 Lymph # (Auto) 1.20 (1.18-3.74) K/mm3 [place] # (Auto) 1.09 H (0.24-0.36) K/mm3 Eos # (Auto) 0.00 L (0.04-0.36) K/mm3 Baso # (Auto) 0.00 L (0.01-0.08) K/mm3 Manual Slide Review Abnormal smear Sodium 134 L (136-145) mEq/L Potassium 3.7 (3.5-5.1) mEq/L Chloride 100 (98-107) mEq/L Carbon Dioxide 24 (21-32) mEq/L Anion Gap 13.7 (5-15) BUN 21 H (7-18) mg/dL Creatinine 1.1 H (0.55-1.02) mg/dL Est Cr Clr Drug Dosing 43.91 mL/min Estimated GFR (MDRD) 49 (>60) mL/min BUN/Creatinine Ratio 19.1 H (14-18) Glucose 96 (83-115) mg/dL Calcium 8.5 (8.5-10.1) mg/dL Magnesium 1.8 (1.8-2.4) mg/dl C-Reactive Protein 9.1 H* (<1.0) mg/dL Med Orders - Current: Current Medications Acetaminophen (Tylenol) 650 mg PO DAILY PRN PRN Reason: Pain Last Admin: 09/07/17 03:57 Dose: 650 mg Sodium Chloride (Normal Saline) 1,000 mls @ 1,000 mls/hr IV .BOLUS SOFI Last Admin: 09/06/17 17:50 Dose: 1,000 mls/hr Potassium Chloride/Sodium Chloride (Normal Saline With 20 Meq Kcl) 1,000 mls @ 200 mls/hr IV ASDIRECTED SOFI Last Admin: 09/07/17 03:58 Dose: 150 mls/hr Loperamide HCl (Imodium) 4 mg PO ASDIRECTED PRN PRN Reason: Diarrhea Megestrol Acetate (Megace 40 Mg/Ml Susp) 400 mg PO BID [facility] Last Admin: 09/07/17 09:28 Dose: 400 mg Metoprolol Tartrate (Lopressor) 50 mg PO Q12HR [facility] Last Admin: 09/07/17 09:27 Dose: 50 mg Miscellaneous Information (Remove Patch) 1 ea TRDERM Q72H PRN PRN Reason: PATCH REMOVAL Ondansetron HCl (Zofran) 4 mg IVPUSH Q8H PRN PRN Reason: Nausea/Vomiting Pantoprazole Sodium (Protonix) 40 mg PO BIDAC [facility] Last Admin: 09/07/17 05:52 Dose: 40 mg Rivaroxaban (Xarelto) 20 mg PO WITHBREAKFAST [facility] Last Admin: 09/07/17 09:27 Dose: 20 mg Scopolamine (Transderm-Scop) 1.5 mg TRDERM Q72H PRN PRN Reason: Nausea Senna/Docusate Sodium (Senna Plus) 1 tab PO BID PRN PRN Reason: Constipation Sodium Chloride (Saline Flush) 10 ml FLUSH ASDIRECTED PRN PRN Reason: Keep Vein Open Last Admin: 09/06/17 17:50 Dose: 10 ml Discontinued Medications Magnesium Sulfate 2 gm/ Premix 50 mls @ 25 mls/hr IV ONETIME ONE Stop: 09/06/17 21:57 Last Admin: 09/06/17 21:32 Dose: 25 mls/hr Sodium Chloride (Normal Saline) 1,000 mls @ 999 mls/hr IV ONETIME ONE Stop: 09/06/17 21:05 Last Admin: 09/06/17 21:32 Dose: 999 mls/hr Influenza Virus Vaccine (Pharmacy To Dose - Influenza Vaccine) 1 each IM ONETIME ONE Stop: 09/06/17 20:37 Influenza Virus Vaccine (Fluzone High-Dose 2016-) 180 mcg IM .ONCE ONE Stop: 09/06/17 20:46 Ondansetron HCl (Zofran) 4 mg IVPUSH ONETIME ONE Stop: 09/06/17 19:24 Last Admin: 09/06/17 19:32 Dose: 4 mg - Exam Quality Assessment: Supplemental Oxygen, DVT Prophylaxis General: Alert, Oriented, Cooperative, No Acute Distress HEENT: Pupils Equal, Pupils Reactive, EOMI Neck: Supple, Trachea Midline Lungs: Normal Respiratory Effort, Decreased Breath Sounds Cardiovascular: Regular Rate GI/Abdominal Exam: Normal Bowel Sounds, Soft, Non-Tender, No Organomegaly, No Distention (Female) Exam: Deferred Back Exam: Normal Inspection Extremities: Normal Inspection Skin: Warm Neurological: No New Focal Deficit Psy/Mental Status: Alert, Normal Affect, Normal Mood - Problem List & Annotations (1) Atrial fibrillation SNOMED Code(s): 21583873 Code(s): I48.91 - UNSPECIFIED ATRIAL FIBRILLATION Status: Acute Current Visit: Yes Qualifiers: Atrial fibrillation type: chronic Qualified Code(s): I48.2 - Chronic atrial fibrillation (2) Generalized weakness SNOMED Code(s): 40049726 Code(s): R53.1 - WEAKNESS Status: Acute Current Visit: Yes (3) Hypokalemia SNOMED Code(s): 32194147 Code(s): E87.6 - HYPOKALEMIA Status: Acute Current Visit: Yes (4) Hyponatremia SNOMED Code(s): 44223867 Code(s): E87.1 - HYPO-OSMOLALITY AND HYPONATREMIA Status: Acute Current Visit: Yes (5) Pancytopenia due to chemotherapy SNOMED Code(s): 1172746 Code(s): D61.810 - ANTINEOPLASTIC CHEMOTHERAPY INDUCED PANCYTOPENIA Status : Acute Current Visit: Yes (6) Syncope SNOMED Code(s): 947447712 Code(s): R55 - SYNCOPE AND COLLAPSE Status: Acute Current Visit: Yes Qualifiers: Syncope type: unspecified Qualified Code(s): R55 - Syncope and collapse (7) Uterine cancer SNOMED Code(s): 602235768 Code(s): C55 - MALIGNANT NEOPLASM OF UTERUS, PART UNSPECIFIED Status: Acute Current Visit: Yes Qualifiers: Malignant neoplasm of uterus location: unspecified site of uterus Qualified Code(s): C55 - Malignant neoplasm of uterus, part unspecified (8) Joint pain following chemotherapy SNOMED Code(s): 24313903 Code(s): M25.50 - PAIN IN UNSPECIFIED JOINT; G89.18 - OTHER ACUTE POSTPROCEDURAL PAIN Status: Acute Current Visit: No - Problem List Review Problem List Initiated/Reviewed/Updated: Yes - My Orders Last 24 Hours: My Active Orders 09/06/17 19:55 Activity as Tolerated [RC] .Routine Vital Signs [RC] 22,04,10,16 09/06/17 19:58 Ondansetron [Zofran] 4 mg IVPUSH Q8H PRN 09/06/17 19:59 Consult to Draw Tender [CONS] Routine Scopolamine [Transderm-Scop] 1.5 mg TRDERM Q72H PRN 09/06/17 20:01 Acetaminophen [Tylenol] 650 mg PO DAILY PRN Docusate Sodium/Sennosides [Senna Plus] 1 tab PO BID PRN Loperamide [Imodium] 4 mg PO ASDIRECTED PRN 09/06/17 20:04 Antiembolic Devices [RC] PER UNIT ROUTINE INDIRA Hose [Antiembolic Hose] [OM.PC] Routine 09/06/17 20:15 Metoprolol Tartrate [Lopressor] 50 mg PO Q12HR Pantoprazole [ProTONIX] 40 mg PO BIDAC 09/06/17 20:18 Remove Patch 1 ea TRDERM Q72H PRN 09/06/17 21:00 Megestrol [Megace 40 MG/ML Susp] 400 mg PO BID 09/06/17 22:23 Code Status [Resuscitation Status] Routine 09/07/17 07:00 Rivaroxaban [Xarelto] 20 mg PO WITHBREAKFAST 09/07/17 09:00 Consult to Dietary [Consult to Pediatric Psychiatrist] [CONS] Routine 09/07/17 11:00 Consult to Occupational Therapy [OT Evaluation and Treatment] [CONS] Routine Consult to Physical Therapy [PT Evaluation and Treatment] [CONS] Routine 09/07/17 Breakfast Clear Liquid Diet [DIET] 09/08/17 05:00 BMP [BASIC METABOLIC PANEL,BMP] [CHEM] DAILY CBC WITH AUTO DIFF [HEME] DAILY CRP [C-REACTIVE PROTEIN] [CHEM] DAILY MG [MAGNESIUM] [CHEM] DAILY 09/09/17 05:00 BMP [BASIC METABOLIC PANEL,BMP] [CHEM] DAILY CBC WITH AUTO DIFF [HEME] DAILY CRP [C-REACTIVE PROTEIN] [CHEM] DAILY MG [MAGNESIUM] [CHEM] DAILY 09/10/17 05:00 BMP [BASIC METABOLIC PANEL,BMP] [CHEM] DAILY CBC WITH AUTO DIFF [HEME] DAILY CRP [C-REACTIVE PROTEIN] [CHEM] DAILY MG [MAGNESIUM] [CHEM] DAILY - Plan Plan:: Impression: Endometrial cancer S/P CTX, 6 cycles Dehydration with subsequent syncopal episode, resolved ARF-->improving Abnormal electrolytes: K-->remains low; corrected Na Pancytopenia: Hgb decreased after IVF Chronic HTN Plan: IVF Clear liquid diet advance as tolerated Antiemetic Megace Dietary consult SW (PACE?)/PT/OT consults Home meds Daily labs EMR from [place] and [facility] DVT/GI prophylaxis
[2017-09-07] MEDS: Acetaminophen 325 MG Tab PO PRN (12:36)
[2017-09-07] MEDS: Potassium Chloride 10% 20 MEQ/15 ML Soln 15 ML UD Cup PO SCH (20:25)
[2017-09-08] MEDS: Pantoprazole 40 MG Tab.CR PO SCH ×2 (06:11→15:59)
[2017-09-08] MEDS: Rivaroxaban 10 MG Tab PO SCH (06:12)
[2017-09-08] MEDS: Acetaminophen 325 MG Tab PO PRN ×2 (06:13→21:44)
--- NOTE | 2017-09-08 09:12 | PCM.PN ---
- General Info Date of Service: 09/08/17 Functional Status: Reports: Pain Controlled, Tolerating Diet, Ambulating, Urinating - Review of Systems General: Reports: Weakness HEENT: Reports: No Symptoms Pulmonary: Reports: No Symptoms Cardiovascular: Reports: No Symptoms Gastrointestinal: Reports: No Symptoms Genitourinary: Reports: No Symptoms Musculoskeletal: Reports: No Symptoms Skin: Reports: No Symptoms Neurological: Reports: No Symptoms Psychiatric: Reports: No Symptoms - Patient Data Vitals - Most Recent: Last Vital Signs Temp 36.9 C 09/08/17 03:03 Pulse 84 09/08/17 03:03 Resp 16 09/08/17 03:03 BP 112/65 09/08/17 03:03 Pulse Ox 98 09/08/17 03:03 Weight - Most Recent: 90.265 kg I&O - Last 24 Hours: Intake & Output 09/07/17 09/08/17 09/08/17 22:59 06:59 14:59 Intake Total 3110 300 Output Total 550 500 Balance 2560 -200 Lab Results Last 24 Hours: Laboratory Results - last 24 hr 09/07/17 09/08/17 09/08/17 Range/Units 18:00 06:30 06:30 WBC 4.88 (3.98-10.04) K/mm3 RBC 2.81 L (3.98-5.22) M/mm3 Hgb 8.4 L (11.2-15.7) gm/L Hct 25.6 L (34.1-44.9) % MCV 91.1 (79.4-94.8) fl MCH 29.9 (25.6-32.2) pg MCHC 32.8 (32.2-35.5) g/dl RDW Std Deviation 59.8 H (36.4-46.3) fL Plt Count 145 L (182-369) K/mm3 MPV 11.1 (9.4-12.3) fl Neut % (Auto) 42.7 (34.0-71.1) % Lymph % (Auto) 34.6 (19.3-51.7) % [place] % (Auto) 18.4 H (4.7-12.5) % Eos % (Auto) 0.2 L (0.7-5.8) Baso % (Auto) 0.0 L (0.1-1.2) % Neut # (Auto) 2.08 (1.56-6.13) K/mm3 Lymph # (Auto) 1.69 (1.18-3.74) K/mm3 [place] # (Auto) 0.90 H (0.24-0.36) K/mm3 Eos # (Auto) 0.01 L (0.04-0.36) K/mm3 Baso # (Auto) 0.00 L (0.01-0.08) K/mm3 Manual Slide Review Abnormal smear Sodium 137 (136-145) mEq/L Potassium 2.9 L 3.5 (3.5-5.1) mEq/L Chloride 103 (98-107) mEq/L Carbon Dioxide 24 (21-32) mEq/L Anion Gap 13.5 (5-15) BUN 14 (7-18) mg/dL Creatinine 1.1 H (0.55-1.02) mg/dL Est Cr Clr Drug Dosing 43.91 mL/min Estimated GFR (MDRD) 49 (>60) mL/min BUN/Creatinine Ratio 12.7 L (14-18) Glucose 94 (83-115) mg/dL Calcium 9.6 (8.5-10.1) mg/dL Magnesium 1.8 (1.8-2.4) mg/dl C-Reactive Protein 5.6 H* (<1.0) mg/dL Med Orders - Current: Current Medications Acetaminophen (Tylenol) 650 mg PO Q6H PRN PRN Reason: Pain (mild 1-3) Last Admin: 09/08/17 06:13 Dose: 650 mg Magnesium Sulfate 2 gm/ Premix 50 mls @ 25 mls/hr IV ONETIME ONE Stop: 09/08/17 11:09 Loperamide HCl (Imodium) 4 mg PO ASDIRECTED PRN PRN Reason: Diarrhea Megestrol Acetate (Megace 40 Mg/Ml Susp) 400 mg PO BID [facility] Last Admin: 09/07/17 20:23 Dose: 400 mg Metoprolol Tartrate (Lopressor) 50 mg PO Q12HR [facility] Last Admin: 09/07/17 20:24 Dose: 50 mg Miscellaneous Information (Remove Patch) 1 ea TRDERM Q72H PRN PRN Reason: PATCH REMOVAL Ondansetron HCl (Zofran) 4 mg IVPUSH Q8H PRN PRN Reason: Nausea/Vomiting Pantoprazole Sodium (Protonix) 40 mg PO BIDAC SOFI Last Admin: 09/08/17 06:11 Dose: 40 mg Potassium Chloride (Potassium Chloride Solution) 60 meq PO BID SOFI Last Admin: 09/07/17 20:25 Dose: 60 meq Rivaroxaban (Xarelto) 20 mg PO WITHBREAKFAST SOFI Last Admin: 09/08/17 06:12 Dose: 20 mg Scopolamine (Transderm-Scop) 1.5 mg TRDERM Q72H PRN PRN Reason: Nausea Senna/Docusate Sodium (Senna Plus) 1 tab PO BID PRN PRN Reason: Constipation Last Admin: 09/08/17 06:15 Dose: 1 tab Sodium Chloride (Saline Flush) 10 ml FLUSH ASDIRECTED PRN PRN Reason: Keep Vein Open Last Admin: 09/06/17 17:50 Dose: 10 ml Vit A/Vit C/Vit E/Selen/Cu/Zn/Lutei (Icaps Mv) 1 tab PO DAILY [facility] Discontinued Medications Acetaminophen (Tylenol) 650 mg PO DAILY PRN PRN Reason: Pain Last Admin: 09/07/17 03:57 Dose: 650 mg Sodium Chloride (Normal Saline) 1,000 mls @ 1,000 mls/hr IV .BOLUS [facility] Last Admin: 09/06/17 17:50 Dose: 1,000 mls/hr Potassium Chloride/Sodium Chloride (Normal Saline With 20 Meq Kcl) 1,000 mls @ 200 mls/hr IV ASDIRECTED [facility] Last Admin: 09/07/17 12:20 Dose: 150 mls/hr Magnesium Sulfate 2 gm/ Premix 50 mls @ 25 mls/hr IV ONETIME ONE Stop: 09/06/17 21:57 Last Admin: 09/06/17 21:32 Dose: 25 mls/hr Sodium Chloride (Normal Saline) 1,000 mls @ 999 mls/hr IV ONETIME ONE Stop: 09/06/17 21:05 Last Admin: 09/06/17 21:32 Dose: 999 mls/hr Magnesium Sulfate 2 gm/ Premix 50 mls @ 25 mls/hr IV ONETIME ONE Stop: 09/07/17 13:46 Last Admin: 09/07/17 12:20 Dose: 25 mls/hr Influenza Virus Vaccine (Pharmacy To Dose - Influenza Vaccine) 1 each IM ONETIME ONE Stop: 09/06/17 20:37 Influenza Virus Vaccine (Fluzone High-Dose 2016-18) 180 mcg IM .ONCE ONE Stop: 09/06/17 20:46 Ondansetron HCl (Zofran) 4 mg IVPUSH ONETIME ONE Stop: 09/06/17 19:24 Last Admin: 09/06/17 19:32 Dose: 4 mg - Exam Quality Assessment: DVT Prophylaxis General: Alert, Oriented, Cooperative, No Acute Distress HEENT: Pupils Equal, Pupils Reactive, EOMI Neck: Supple, Trachea Midline Lungs: Clear to Auscultation, Normal Respiratory Effort Cardiovascular: Regular Rate, Regular Rhythm GI/Abdominal Exam: Normal Bowel Sounds, Soft, Non-Tender, No Organomegaly, No Distention (Female) Exam: Deferred Back Exam: Normal Inspection Extremities: Normal Inspection, Pedal Edema (trace) Skin: Warm Neurological: No New Focal Deficit Psy/Mental Status: Alert, Normal Affect, Normal Mood - Problem List & Annotations (1) Atrial fibrillation SNOMED Code(s): 68338786 Code(s): I48.91 - UNSPECIFIED ATRIAL FIBRILLATION Status: Acute Current Visit: Yes Qualifiers: Atrial fibrillation type: chronic Qualified Code(s): I48.2 - Chronic atrial fibrillation (2) Generalized weakness SNOMED Code(s): 43470923 Code(s): R53.1 - WEAKNESS Status: Acute Current Visit: Yes (3) Hypokalemia SNOMED Code(s): 58893525 Code(s): E87.6 - HYPOKALEMIA Status: Acute Current Visit: Yes (4) Hyponatremia SNOMED Code(s): 89434064 Code(s): E87.1 - HYPO-OSMOLALITY AND HYPONATREMIA Status: Acute Current Visit: Yes (5) Pancytopenia due to chemotherapy SNOMED Code(s): 7064961 Code(s): D61.810 - ANTINEOPLASTIC CHEMOTHERAPY INDUCED PANCYTOPENIA Status : Acute Current Visit: Yes (6) Syncope SNOMED Code(s): 859240618 Code(s): R55 - SYNCOPE AND COLLAPSE Status: Acute Current Visit: Yes Qualifiers: Syncope type: unspecified Qualified Code(s): R55 - Syncope and collapse (7) Uterine cancer SNOMED Code(s): 727123813 Code(s): C55 - MALIGNANT NEOPLASM OF UTERUS, PART UNSPECIFIED Status: Acute Current Visit: Yes Qualifiers: Malignant neoplasm of uterus location: unspecified site of uterus Qualified Code(s): C55 - Malignant neoplasm of uterus, part unspecified (8) Joint pain following chemotherapy SNOMED Code(s): 01389163 Code(s): M25.50 - PAIN IN UNSPECIFIED JOINT; G89.18 - OTHER ACUTE POSTPROCEDURAL PAIN Status: Acute Current Visit: No - Problem List Review Problem List Initiated/Reviewed/Updated: Yes - My Orders Last 24 Hours: My Active Orders 09/07/17 09:00 Consult to Dietary [Consult to Venereal Disease Control Head] [CONS] Routine 09/07/17 11:00 Consult to Occupational Therapy [OT Evaluation and Treatment] [CONS] Routine Consult to Physical Therapy [PT Evaluation and Treatment] [CONS] Routine 09/07/17 12:31 Acetaminophen [Tylenol] 650 mg PO Q6H PRN 09/07/17 20:00 Potassium Chloride [Potassium Chloride Solution] 60 meq PO BID 09/07/17 Dinner Full Liquid Diet [DIET] 09/08/17 09:00 Multivitamins/Min/FA/Lut/Zeax [ICaps MV] 1 tab PO DAILY 09/08/17 09:10 Magnesium Sulfate/Water [Magnesium Sulfate 2 GM in Water 50 ML] 2 gm Premix Bag 1 bag IV ONETIME 09/09/17 05:00 BMP [BASIC METABOLIC PANEL,BMP] [CHEM] DAILY CBC WITH AUTO DIFF [HEME] DAILY CRP [C-REACTIVE PROTEIN] [CHEM] DAILY MG [MAGNESIUM] [CHEM] DAILY 09/10/17 05:00 BMP [BASIC METABOLIC PANEL,BMP] [CHEM] DAILY CBC WITH AUTO DIFF [HEME] DAILY CRP [C-REACTIVE PROTEIN] [CHEM] DAILY MG [MAGNESIUM] [CHEM] DAILY - Plan Plan:: Impression: Endometrial cancer S/P CTX, 6 cycles Dehydration with subsequent syncopal episode, resolved ARF-->improving Abnormal electrolytes: K-->remains low; corrected Na Pancytopenia: Hgb decreased after IVF Chronic HTN Plan: DC~>IVF Start regular diet Antiemetic Megace Dietary consult SW (PACE?)/PT/OT consults Home meds Daily labs EMR from [place] [facility] DVT/GI prophylaxis
[2017-09-08] MEDS ORDERED: Magnesium Sulfate/Water 2 GM in Premix Bag 1 BAG IV ONE (09:20)
[2017-09-08] MEDS: Potassium Chloride 10% 20 MEQ/15 ML Soln 15 ML UD Cup PO SCH ×2 (09:26→21:45)
[2017-09-08] MEDS: Metoprolol Tartrate 50 MG Tab PO SCH ×2 (09:26→21:43)
[2017-09-08] MEDS: Multivitamins with Minerals/Folic Acid/Lutein/Zeaxanth Tab PO SCH (09:26)
[2017-09-08] MEDS: Megestrol Susp 40 MG/ML 10 ML UD Cup PO SCH ×2 (09:30→21:44)
[2017-09-09] MEDS: Pantoprazole 40 MG Tab.CR PO SCH ×2 (06:13→20:51)
[2017-09-09] MEDS: Rivaroxaban 10 MG Tab PO SCH (06:13)
[2017-09-09] MEDS: Megestrol Susp 40 MG/ML 10 ML UD Cup PO SCH ×2 (08:59→21:20)
[2017-09-09] MEDS: Metoprolol Tartrate 50 MG Tab PO SCH (08:59)
[2017-09-09] MEDS: Multivitamins with Minerals/Folic Acid/Lutein/Zeaxanth Tab PO SCH (08:59)
[2017-09-09] MEDS: Potassium Chloride 10% 20 MEQ/15 ML Soln 15 ML UD Cup PO SCH ×2 (09:02→21:20)
[2017-09-09] MEDS: Magnesium Oxide 400 MG Tab PO SCH ×2 (09:47→21:20)
[2017-09-09] MEDS ORDERED: Metoprolol Succinate 50 MG Tab.ER PO ONE (11:35)
--- NOTE | 2017-09-09 18:46 | PCM.PN ---
- General Info Date of Service: 09/09/17 Functional Status: Reports: Tolerating Diet, Ambulating, Urinating - Review of Systems General: Reports: No Symptoms HEENT: Reports: No Symptoms Pulmonary: Reports: No Symptoms Cardiovascular: Reports: No Symptoms Gastrointestinal: Reports: No Symptoms Genitourinary: Reports: No Symptoms Musculoskeletal: Reports: No Symptoms Skin: Reports: No Symptoms Neurological: Reports: No Symptoms Psychiatric: Reports: No Symptoms - Patient Data Vitals - Most Recent: Last Vital Signs Temp 36.9 C 09/09/17 14:38 Pulse 86 09/09/17 14:38 Resp 18 09/09/17 14:38 BP 119/75 09/09/17 14:38 Pulse Ox 98 09/09/17 14:38 Weight - Most Recent: 93.712 kg I&O - Last 24 Hours: Intake & Output 09/09/17 09/09/17 09/09/17 06:59 14:59 22:59 Intake Total 400 1140 Output Total 350 Balance 400 790 Lab Results Last 24 Hours: Laboratory Results - last 24 hr 09/09/17 09/09/17 Range/Units 06:40 06:40 WBC 5.76 (3.98-10.04) K/mm3 RBC 2.74 L (3.98-5.22) M/mm3 Hgb 8.2 L (11.2-15.7) gm/L Hct 25.4 L (34.1-44.9) % MCV 92.7 (79.4-94.8) fl MCH 29.9 (25.6-32.2) pg MCHC 32.3 (32.2-35.5) g/dl RDW Std Deviation 62.0 H (36.4-46.3) fL Plt Count 142 L (182-369) K/mm3 MPV 10.8 (9.4-12.3) fl Neut % (Auto) 42.5 (34.0-71.1) % Lymph % (Auto) 36.6 (19.3-51.7) % [place] % (Auto) 13.7 H (4.7-12.5) % Eos % (Auto) 0.2 L (0.7-5.8) Baso % (Auto) 0.2 (0.1-1.2) % Neut # (Auto) 2.45 (1.56-6.13) K/mm3 Lymph # (Auto) 2.11 (1.18-3.74) K/mm3 [place] # (Auto) 0.79 H (0.24-0.36) K/mm3 Eos # (Auto) 0.01 L (0.04-0.36) K/mm3 Baso # (Auto) 0.01 (0.01-0.08) K/mm3 Manual Slide Review Abnormal smear Sodium 135 L (136-145) mEq/L Potassium 4.8 (3.5-5.1) mEq/L Chloride 103 (98-107) mEq/L Carbon Dioxide 21 (21-32) mEq/L Anion Gap 15.8 H (5-15) BUN 12 (7-18) mg/dL Creatinine 1.0 (0.55-1.02) mg/dL Est Cr Clr Drug Dosing 48.30 mL/min Estimated GFR (MDRD) 55 (>60) mL/min BUN/Creatinine Ratio 12.0 L (14-18) Glucose 89 (83-115) mg/dL Calcium 10.3 H (8.5-10.1) mg/dL Magnesium 1.6 L (1.8-2.4) mg/dl C-Reactive Protein 3.2 H* (<1.0) mg/dL Med Orders - Current: Current Medications Acetaminophen (Tylenol) 650 mg PO Q6H PRN PRN Reason: Pain (mild 1-3) Last Admin: 09/08/17 21:44 Dose: 650 mg Loperamide HCl (Imodium) 4 mg PO ASDIRECTED PRN PRN Reason: Diarrhea Last Admin: 09/08/17 10:43 Dose: 4 mg Magnesium Oxide (Magnesium Oxide) 400 mg PO BID [facility] Last Admin: 09/09/17 09:47 Dose: 400 mg Megestrol Acetate (Megace 40 Mg/Ml Susp) 400 mg PO BID [facility] Last Admin: 09/09/17 08:59 Dose: 400 mg Miscellaneous Information (Remove Patch) 1 ea TRDERM Q72H PRN PRN Reason: PATCH REMOVAL Ondansetron HCl (Zofran) 4 mg IVPUSH Q8H PRN PRN Reason: Nausea/Vomiting Pantoprazole Sodium (Protonix) 40 mg PO BIDAC [facility] Last Admin: 09/09/17 06:13 Dose: 40 mg Potassium Chloride (Potassium Chloride Solution) 60 meq PO BID [facility] Last Admin: 09/09/17 09:02 Dose: 60 meq Rivaroxaban (Xarelto) 20 mg PO WITHBREAKFAST [facility] Last Admin: 09/09/17 06:13 Dose: 20 mg Scopolamine (Transderm-Scop) 1.5 mg TRDERM Q72H PRN PRN Reason: Nausea Senna/Docusate Sodium (Senna Plus) 1 tab PO BID PRN PRN Reason: Constipation Last Admin: 09/08/17 06:15 Dose: 1 tab Sodium Chloride (Saline Flush) 10 ml FLUSH ASDIRECTED PRN PRN Reason: Keep Vein Open Last Admin: 09/06/17 17:50 Dose: 10 ml Vit A/Vit C/Vit E/Selen/Cu/Zn/Lutei (Icaps Mv) 1 tab PO DAILY [facility] Last Admin: 09/09/17 08:59 Dose: 1 tab Discontinued Medications Acetaminophen (Tylenol) 650 mg PO DAILY PRN PRN Reason: Pain Last Admin: 09/07/17 03:57 Dose: 650 mg Sodium Chloride (Normal Saline) 1,000 mls @ 1,000 mls/hr IV .BOLUS [facility] Last Admin: 09/06/17 17:50 Dose: 1,000 mls/hr Potassium Chloride/Sodium Chloride (Normal Saline With 20 Meq Kcl) 1,000 mls @ 200 mls/hr IV ASDIRECTED [facility] Last Admin: 09/07/17 12:20 Dose: 150 mls/hr Magnesium Sulfate 2 gm/ Premix 50 mls @ 25 mls/hr IV ONETIME ONE Stop: 09/06/17 21:57 Last Admin: 09/06/17 21:32 Dose: 25 mls/hr Sodium Chloride (Normal Saline) 1,000 mls @ 999 mls/hr IV ONETIME ONE Stop: 09/06/17 21:05 Last Admin: 09/06/17 21:32 Dose: 999 mls/hr Magnesium Sulfate 2 gm/ Premix 50 mls @ 25 mls/hr IV ONETIME ONE Stop: 09/07/17 13:46 Last Admin: 09/07/17 12:20 Dose: 25 mls/hr Magnesium Sulfate 2 gm/ Premix 50 mls @ 25 mls/hr IV ONETIME ONE Stop: 09/08/17 11:19 Last Admin: 09/08/17 09:23 Dose: 25 mls/hr Influenza Virus Vaccine (Pharmacy To Dose - Influenza Vaccine) 1 each IM ONETIME ONE Stop: 09/06/17 20:37 Influenza Virus Vaccine (Fluzone High-Dose 2016-) 180 mcg IM .ONCE ONE Stop: 09/06/17 20:46 Metoprolol Succinate (Toprol Xl) 50 mg PO ONETIME ONE Stop: 09/09/17 11:36 Last Admin: 09/09/17 11:42 Dose: 50 mg Metoprolol Tartrate (Lopressor) 50 mg PO Q12HR [facility] Last Admin: 09/09/17 08:59 Dose: 50 mg Ondansetron HCl (Zofran) 4 mg IVPUSH ONETIME ONE Stop: 09/06/17 19:24 Last Admin: 09/06/17 19:32 Dose: 4 mg - Exam Quality Assessment: Supplemental Oxygen, DVT Prophylaxis General: Alert, Oriented, Cooperative HEENT: Pupils Equal, Pupils Reactive, EOMI Neck: Supple, Trachea Midline Lungs: Normal Respiratory Effort Cardiovascular: Regular Rate, Regular Rhythm GI/Abdominal Exam: Normal Bowel Sounds, Soft, Non-Tender, No Organomegaly, No Distention (Female) Exam: Deferred Back Exam: Normal Inspection Extremities: Normal Inspection Skin: Warm Neurological: No New Focal Deficit Psy/Mental Status: Alert, Normal Affect, Normal Mood - Problem List & Annotations (1) Atrial fibrillation SNOMED Code(s): 25968134 Code(s): I48.91 - UNSPECIFIED ATRIAL FIBRILLATION Status: Chronic Priority: High Current Visit: Yes Qualifiers: Atrial fibrillation type: chronic Qualified Code(s): I48.2 - Chronic atrial fibrillation (2) Generalized weakness SNOMED Code(s): 01872373 Code(s): R53.1 - WEAKNESS Status: Acute Priority: High Current Visit: Yes (3) Hypokalemia SNOMED Code(s): 15229063 Code(s): E87.6 - HYPOKALEMIA Status: Resolved Priority: High Current Visit: Yes (4) Hyponatremia SNOMED Code(s): 23451038 Code(s): E87.1 - HYPO-OSMOLALITY AND HYPONATREMIA Status: Resolved Priority: High Current Visit: Yes (5) Pancytopenia due to chemotherapy SNOMED Code(s): 1666328 Code(s): D61.810 - ANTINEOPLASTIC CHEMOTHERAPY INDUCED PANCYTOPENIA Status : Acute Priority: High Current Visit: Yes (6) Syncope SNOMED Code(s): 069564694 Code(s): R55 - SYNCOPE AND COLLAPSE Status: Resolved Priority: High Current Visit: Yes Qualifiers: Syncope type: unspecified Qualified Code(s): R55 - Syncope and collapse (7) Uterine cancer SNOMED Code(s): 122385838 Code(s): C55 - MALIGNANT NEOPLASM OF UTERUS, PART UNSPECIFIED Status: Chronic Priority: Medium Current Visit: No Qualifiers: Malignant neoplasm of uterus location: unspecified site of uterus Qualified Code(s): C55 - Malignant neoplasm of uterus, part unspecified (8) Joint pain following chemotherapy SNOMED Code(s): 52697235 Code(s): M25.50 - PAIN IN UNSPECIFIED JOINT; G89.18 - OTHER ACUTE POSTPROCEDURAL PAIN Status: Acute Current Visit: No - Problem List Review Problem List Initiated/Reviewed/Updated: Yes - My Orders Last 24 Hours: My Active Orders 09/09/17 09:18 EKG 12 Lead [EKG Documentation Completion] [RC] ROUTINE 09/10/17 05:00 BMP [BASIC METABOLIC PANEL,BMP] [CHEM] DAILY CBC WITH AUTO DIFF [HEME] DAILY CRP [C-REACTIVE PROTEIN] [CHEM] DAILY MG [MAGNESIUM] [CHEM] DAILY - Plan Plan:: Impression: Endometrial cancer S/P CTX, 6 cycles Dehydration with subsequent syncopal episode, resolved ARF-->resolved Abnormal electrolytes: corrected Pancytopenia: stable A fib with RVR Chronic HTN Plan: DC~>IVF Start regular diet Antiemetic Megace Dietary consult (PACE--->declined)/PT/OT consults Home meds Daily labs EMR from [place] [facility] DVT/GI prophylaxis DC 09/10/17
[2017-09-09] MEDS: Metoprolol Succinate 50 MG Tab.ER PO SCH (21:20)
[2017-09-10] MEDS: Rivaroxaban 10 MG Tab PO SCH (06:48)
[2017-09-10] MEDS: Pantoprazole 40 MG Tab.CR PO SCH (06:48)
[2017-09-10] MEDS: Diltiazem IR 30 MG Tab PO SCH ×2 (06:48→13:55)
[2017-09-10] MEDS: Multivitamins with Minerals/Folic Acid/Lutein/Zeaxanth Tab PO SCH (08:26)
[2017-09-10] MEDS: Megestrol Susp 40 MG/ML 10 ML UD Cup PO SCH (08:27)
[2017-09-10] MEDS: Magnesium Oxide 400 MG Tab PO SCH (08:27)
[2017-09-10] MEDS: Metoprolol Succinate 50 MG Tab.ER PO SCH (08:34)
[2017-09-10] MEDS ORDERED: Magnesium Sulfate/Water 4 GM in Premix Bag 1 BAG IV ONE (09:33)
[2017-09-10] MEDS: Potassium Chloride 10% 20 MEQ/15 ML Soln 15 ML UD Cup PO SCH (09:43)
[2017-09-10] MEDS ORDERED: Sodium Polystyrene Sulfonate 15 GM/60 ML Susp 60 ML Bot PO ONE (09:50)
--- NOTE | 2017-09-10 13:54 | PCM.DCSUM1 ---
Discharge Summary - Hospital Course Free Text/Narrative:: 72 year old female with endometrial cancer completed 6 cycles of CTX, presented with generalized weakness as well as presyncopal/syncopal episode. She had electrolyte abnormalities, and was in acute renal failure. IVF, electrolyte replacement, adjustment of medication and return of her BUN/Cr to normal occured before DC. A fib with RVR also was managed, she required adjustment of her rate controlling medication before DC. Primary Diagnosis Presyncope ARF Pancytopenia, uterine cancer S/P CTX Hypokalemia Hyponatremia Hypomagnesemia A fib with RVR Disposition Home Diet Usual diet Follow up as arranged with PCP/oncologist Labs/Diagnostic Holter monitor 48 hours Labs: BMP, Mg the week of 09/14/17. Meds(changes or additions) Toprol XL 50 mg BID Cardizem IR 30 mg QID MgO 400 mg BID Megace 400 mg BID - Discharge Data Discharge Date: 09/10/17 Discharge Disposition: Home, Self-Care 01 Condition: Good - Discharge Diagnosis/Problem(s) (1) Atrial fibrillation SNOMED Code(s): 57057047 ICD Code: I48.91 - UNSPECIFIED ATRIAL FIBRILLATION Status: Chronic Priority: High Current Visit: Yes Qualifiers: Atrial fibrillation type: chronic Qualified Code(s): I48.2 - Chronic atrial fibrillation (2) Generalized weakness SNOMED Code(s): 47843962 ICD Code: R53.1 - WEAKNESS Status: Acute Priority: High Current Visit: Yes (3) Hypokalemia SNOMED Code(s): 61177311 ICD Code: E87.6 - HYPOKALEMIA Status: Resolved Priority: High Current Visit: Yes (4) Hyponatremia SNOMED Code(s): 44754590 ICD Code: E87.1 - HYPO-OSMOLALITY AND HYPONATREMIA Status: Resolved Priority: High Current Visit: Yes (5) Pancytopenia due to chemotherapy SNOMED Code(s): 8711353 ICD Code: D61.810 - ANTINEOPLASTIC CHEMOTHERAPY INDUCED PANCYTOPENIA Status : Acute Priority: High Current Visit: Yes (6) Syncope SNOMED Code(s): 352948699 ICD Code: R55 - SYNCOPE AND COLLAPSE Status: Resolved Priority: High Current Visit: Yes Qualifiers: Syncope type: unspecified Qualified Code(s): R55 - Syncope and collapse (7) Uterine cancer SNOMED Code(s): 941346059 ICD Code: C55 - MALIGNANT NEOPLASM OF UTERUS, PART UNSPECIFIED Status: Chronic Priority: Medium Current Visit: No Qualifiers: Malignant neoplasm of uterus location: unspecified site of uterus Qualified Code(s): C55 - Malignant neoplasm of uterus, part unspecified (8) Joint pain following chemotherapy SNOMED Code(s): 12819708 ICD Code: M25.50 - PAIN IN UNSPECIFIED JOINT; G89.18 - OTHER ACUTE POSTPROCEDURAL PAIN Status: Acute Current Visit: No - Patient Summary/Data Consults: Consultations 09/06/17 19:59 Consult to Hand Umbrella Tipper [CONS] Routine 09/07/17 09:00 Consult to Dietary [Consult to Subscription Crew Leader] [CONS] Routine 09/07/17 11:00 Consult to Occupational Therapy [OT Evaluation and Treatment] [CONS] Routine Consult to Physical Therapy [PT Evaluation and Treatment] [CONS] Routine - Patient Instructions Diet: Usual Diet as Tolerated Activity: As Tolerated Showering/Bathing: May Shower Notify Provider of: Fever, Increased Pain, Nausea and/or Vomiting - Discharge Plan Prescriptions/Med Rec: Diltiazem IR [Cardizem] 30 mg PO Q8HR #120 tablet Magnesium Oxide 400 mg PO BID #60 tablet Megestrol [Megace 40 MG/ML Susp] 400 mg PO BID #60 cup Metoprolol Succinate [Toprol XL] 50 mg PO BID #60 tab.er Home Medications: Home Meds Irbesartan [Avapro] 300 mg PO DAILY 05/24/17 [History] amLODIPine [Norvasc] 5 mg PO DAILY 05/24/17 [History] Acetaminophen [Tylenol] 650 mg PO DAILY PRN 07/23/17 [History] Loperamide [Imodium] 1 tab PO BID PRN 07/23/17 [History] Omeprazole Magnesium [Prilosec Otc] 20 mg PO DAILY 07/23/17 [History] Prochlorperazine Maleate [Compazine] 10 mg PO QID PRN 07/23/17 [History] Rivaroxaban [Xarelto] 20 mg PO DAILY 07/23/17 [History] Sennosides/Docusate Sodium [Senokot-S Tablet] 1 tab PO BID PRN 07/23/17 [History ] Magnesium Oxide 400 mg PO BID #60 tablet 09/09/17 [Rx] Megestrol [Megace 40 MG/ML Susp] 400 mg PO BID #60 cup 09/09/17 [Rx] Diltiazem IR [Cardizem] 30 mg PO Q8HR #120 tablet 09/10/17 [Rx] Metoprolol Succinate [Toprol XL] 50 mg PO BID #60 tab.er 09/10/17 [Rx] Patient Handouts: Hypokalemia, Dehydration, Adult, [id number], Rehydration, Adult, Potassium Content of Foods, Syncope, [id number] Forms: ED Department Discharge Referrals: Lucía Duque MD [Primary Care Provider] - 09/18/17 8:30 am ( Please check in at 8:15am.) - General Info Date of Service: 09/06/17 Functional Status: Reports: Pain Controlled, Tolerating Diet, Ambulating, Urinating - Review of Systems General: Reports: No Symptoms HEENT: Reports: No Symptoms Pulmonary: Reports: No Symptoms Cardiovascular: Reports: No Symptoms Gastrointestinal: Reports: No Symptoms Genitourinary: Reports: No Symptoms Musculoskeletal: Reports: No Symptoms Skin: Reports: No Symptoms Neurological: Reports: No Symptoms Psychiatric: Reports: No Symptoms - Patient Data Vitals - Most Recent: Last Vital Signs Temp 36.6 C 09/10/17 08:11 Pulse 108 H 09/10/17 08:34 Resp 20 09/10/17 08:11 BP 144/86 H 09/10/17 08:34 Pulse Ox 98 09/10/17 08:11 Weight - Most Recent: 94.393 kg I&O - Last 24 hours: Intake & Output 09/09/17 09/10/17 09/10/17 22:59 06:59 14:59 Intake Total 1380 1500 0 Output Total 350 1400 Balance 1030 100 0 Lab Results - Last 24 hrs: Laboratory Results - last 24 hr 09/10/17 09/10/17 Range/Units 05:20 05:20 WBC 6.75 (3.98-10.04) K/mm3 RBC 2.79 L (3.98-5.22) M/mm3 Hgb 8.5 L (11.2-15.7) gm/L Hct 26.0 L (34.1-44.9) % MCV 93.2 (79.4-94.8) fl MCH 30.5 (25.6-32.2) pg MCHC 32.7 (32.2-35.5) g/dl RDW Std Deviation 62.9 H (36.4-46.3) fL Plt Count 152 L (182-369) K/mm3 MPV 10.7 (9.4-12.3) fl Neut % (Auto) 52.5 (34.0-71.1) % Lymph % (Auto) 33.6 (19.3-51.7) % [place] % (Auto) 9.2 (4.7-12.5) % Eos % (Auto) 0 L (0.7-5.8) Baso % (Auto) 0.1 (0.1-1.2) % Neut # (Auto) 3.54 (1.56-6.13) K/mm3 Lymph # (Auto) 2.27 (1.18-3.74) K/mm3 [place] # (Auto) 0.62 H (0.24-0.36) K/mm3 Eos # (Auto) 0.00 L (0.04-0.36) K/mm3 Baso # (Auto) 0.01 (0.01-0.08) K/mm3 Manual Slide Review Abnormal smear Sodium 138 (136-145) mEq/L Potassium 5.4 H (3.5-5.1) mEq/L Chloride 105 (98-107) mEq/L Carbon Dioxide 21 (21-32) mEq/L Anion Gap 17.4 H (5-15) BUN 14 (7-18) mg/dL Creatinine 1.1 H (0.55-1.02) mg/dL Est Cr Clr Drug Dosing 43.91 mL/min Estimated GFR (MDRD) 49 (>60) mL/min BUN/Creatinine Ratio 12.7 L (14-18) Glucose 99 (83-115) mg/dL Calcium 10.1 (8.5-10.1) mg/dL Magnesium 1.2 L (1.8-2.4) mg/dl C-Reactive Protein 1.3 H* (<1.0) mg/dL Med Orders - Current: Current Medications Acetaminophen (Tylenol) 650 mg PO Q6H PRN PRN Reason: Pain (mild 1-3) Last Admin: 09/08/17 21:44 Dose: 650 mg Diltiazem HCl (Cardizem) 30 mg PO Q8HR [facility] Last Admin: 09/10/17 06:48 Dose: 30 mg Loperamide HCl (Imodium) 4 mg PO ASDIRECTED PRN PRN Reason: Diarrhea Last Admin: 09/08/17 10:43 Dose: 4 mg Magnesium Oxide (Magnesium Oxide) 400 mg PO BID [facility] Last Admin: 09/10/17 08:27 Dose: 400 mg Megestrol Acetate (Megace 40 Mg/Ml Susp) 400 mg PO BID [facility] Last Admin: 09/10/17 08:27 Dose: 400 mg Metoprolol Succinate (Toprol Xl) 50 mg PO BID [facility] Last Admin: 09/10/17 08:34 Dose: 50 mg Miscellaneous Information (Remove Patch) 1 ea TRDERM Q72H PRN PRN Reason: PATCH REMOVAL Ondansetron HCl (Zofran) 4 mg IVPUSH Q8H PRN PRN Reason: Nausea/Vomiting Pantoprazole Sodium (Protonix) 40 mg PO BIDAC [facility] Last Admin: 09/10/17 06:48 Dose: 40 mg Rivaroxaban (Xarelto) 20 mg PO WITHBREAKFAST [facility] Last Admin: 09/10/17 06:48 Dose: 20 mg Scopolamine (Transderm-Scop) 1.5 mg TRDERM Q72H PRN PRN Reason: Nausea Senna/Docusate Sodium (Senna Plus) 1 tab PO BID PRN PRN Reason: Constipation Last Admin: 09/08/17 06:15 Dose: 1 tab Sodium Chloride (Saline Flush) 10 ml FLUSH ASDIRECTED PRN PRN Reason: Keep Vein Open Last Admin: 09/06/17 17:50 Dose: 10 ml Vit A/Vit C/Vit E/Selen/Cu/Zn/Lutei (Icaps Mv) 1 tab PO DAILY [facility] Last Admin: 09/10/17 08:26 Dose: 1 tab Discontinued Medications Acetaminophen (Tylenol) 650 mg PO DAILY PRN PRN Reason: Pain Last Admin: 09/07/17 03:57 Dose: 650 mg Sodium Chloride (Normal Saline) 1,000 mls @ 1,000 mls/hr IV .BOLUS [facility] Last Admin: 09/06/17 17:50 Dose: 1,000 mls/hr Potassium Chloride/Sodium Chloride (Normal Saline With 20 Meq Kcl) 1,000 mls @ 200 mls/hr IV ASDIRECTED [facility] Last Admin: 09/07/17 12:20 Dose: 150 mls/hr Magnesium Sulfate 2 gm/ Premix 50 mls @ 25 mls/hr IV ONETIME ONE Stop: 09/06/17 21:57 Last Admin: 09/06/17 21:32 Dose: 25 mls/hr Sodium Chloride (Normal Saline) 1,000 mls @ 999 mls/hr IV ONETIME ONE Stop: 09/06/17 21:05 Last Admin: 09/06/17 21:32 Dose: 999 mls/hr Magnesium Sulfate 2 gm/ Premix 50 mls @ 25 mls/hr IV ONETIME ONE Stop: 09/07/17 13:46 Last Admin: 09/07/17 12:20 Dose: 25 mls/hr Magnesium Sulfate 2 gm/ Premix 50 mls @ 25 mls/hr IV ONETIME ONE Stop: 09/08/17 11:19 Last Admin: 09/08/17 09:23 Dose: 25 mls/hr Magnesium Sulfate 4 gm/ Premix 100 mls @ 50 mls/hr IV ONETIME ONE Stop: 09/10/17 11:32 Last Admin: 09/10/17 10:21 Dose: 50 mls/hr Influenza Virus Vaccine (Pharmacy To Dose - Influenza Vaccine) 1 each IM ONETIME ONE Stop: 09/06/17 20:37 Influenza Virus Vaccine (Fluzone High-Dose ) 180 mcg IM .ONCE ONE Stop: 09/06/17 20:46 Metoprolol Succinate (Toprol Xl) 50 mg PO ONETIME ONE Stop: 09/09/17 11:36 Last Admin: 09/09/17 11:42 Dose: 50 mg Metoprolol Tartrate (Lopressor) 50 mg PO Q12HR [facility] Last Admin: 09/09/17 08:59 Dose: 50 mg Ondansetron HCl (Zofran) 4 mg IVPUSH ONETIME ONE Stop: 09/06/17 19:24 Last Admin: 09/06/17 19:32 Dose: 4 mg Potassium Chloride (Potassium Chloride Solution) 60 meq PO BID [facility] Last Admin: 09/10/17 09:43 Dose: Not Given Sodium Polystyrene Sulfonate (Kayexalate) 30 gm PO NOW ONE Stop: 09/10/17 09:51 Last Admin: 09/10/17 10:20 Dose: 30 gm - Exam Quality Assessment: Reports: DVT Prophylaxis General: Reports: Alert, Oriented, Cooperative HEENT: Reports: Pupils Equal, Pupils Reactive, EOMI Neck: Reports: Supple, Trachea Midline Lungs: Reports: Normal Respiratory Effort Cardiovascular: Reports: Regular Rate, Irregular Rhythm GI/Abdominal Exam: Normal Bowel Sounds, Soft, Non-Tender, No Organomegaly, No Distention (Female) Exam: Deferred Rectal (Female) Exam: Deferred Back Exam: Reports: Normal Inspection Extremities: Normal Inspection Skin: Reports: Warm Neurological: Reports: No New Focal Deficit Psy/Mental Status: Reports: Alert *Q Meaningful Use (DIS) - VTE *Q VTE Criteria *Q: - Stroke *Q Stroke Criteria *Q: - AMI *Q AMI Criteria *Q:
[2017-09-10 14:11] VITALS: BP 117/54
== END 2017-09-10 16:11 | disposition home or self-care (01) | DRG 312 ==
LOC: JD.ED 17:19 → JD.MS 19:45
PROVIDERS: ADMIT Internal Medicine Cardiovascular Disease; ATTEND Internal Medicine Cardiovascular Disease
DX: R55 Syncope and collapse (principal); D61.810 Antineoplastic chemotherapy induced pancytopenia; N17.9 Acute kidney failure, unspecified; D61.1 Drug-induced aplastic anemia; E87.1 Hypo-osmolality and hyponatremia; E83.42 Hypomagnesemia; E86.0 Dehydration; I48.2 Chronic atrial fibrillation; S06.9X1A Unspecified intracranial injury with loss of consciousness of 30 minutes or less, initial encounter; R53.1 Weakness; M25.512 Pain in left shoulder; E87.6 Hypokalemia; C55 Malignant neoplasm of uterus, part unspecified; Z90.710 Acquired absence of both cervix and uterus; G89.18 Other acute postprocedural pain; M25.50 Pain in unspecified joint; I10 Essential (primary) hypertension; Z86.711 Personal history of pulmonary embolism; Z79.01 Long term (current) use of anticoagulants; Z79.899 Other long term (current) drug therapy; W07.XXXA Fall from chair, initial encounter
CPT/HCPCS: 36415; 70450; 73030; 80053; 84484; 85025; 93005; 96361; 96374; 99285; J2405; J3480; J7040; J7050; 80048; 83735; 84132; 86140; 93010; 97110-GO; 97110-GP; 97116-GP; 97162-GP; 97165-GO; 97166-GO; 97530-GO; A9270-GY; J3475

== ENCOUNTER 2018-12-10 06:46 | Day surgery (SDC) | payer MEDICARE, OTHER ==
[2018-12-10] MEDS ORDERED: Sodium Chloride 0.9% 10 ML Syringe FLUSH PRN (07:00)
[2018-12-10] MEDS ORDERED: Lidocaine 1%/Sod Bicarbonate in NS 8.4% 1 ML Syringe IDERM PRN (07:00)
[2018-12-10] MEDS ORDERED: Bupivacaine 0.5%/EPINEPHrine 1:200,000 50 ML MDV ONE (07:12)
[2018-12-10] MEDS ORDERED: Lidocaine 1% with EPINEPHrine 1:100,000 20 ML MDV ONE ×2 (07:12→07:28)
[2018-12-10] MEDS: Lactated Ringers 1,000 ML IV SCH ×2 (07:18→12:14)
[2018-12-10] MEDS ORDERED: Ondansetron 4 MG/2 ML SDV ONE (07:35)
[2018-12-10] MEDS ORDERED: Lidocaine 1% 4 ML ONE (07:35)
[2018-12-10] MEDS ORDERED: fentaNYL 250 MCG/5 ML SDV ONE (07:35)
[2018-12-10] MEDS ORDERED: Lactated Ringers 1,000 ML ONE ×2 (07:35→09:20)
[2018-12-10] MEDS ORDERED: Rocuronium 50 MG/5 ML Vial ONE (07:35)
[2018-12-10] MEDS ORDERED: Propofol 200 MG/20 ML SDV ONE (07:35)
[2018-12-10] MEDS ORDERED: ceFAZolin 1 GM Vial ONE (07:35)
[2018-12-10] MEDS ORDERED: Dexamethasone 4 MG/ML 5 ML MDV ONE (07:36)
--- NOTE | 2018-12-10 07:57 | PCM.PREANE ---
Preanesthetic Assessment - Anesthesia/Transfusion/Family Hx Anesthesia History: Prior Anesthesia Without Reaction Family History of Anesthesia Reaction: No - Review of Systems General: No Symptoms Pulmonary: No Symptoms Cardiovascular: No Symptoms, Other (Atrial Fibrillation, controlled rate. ) Gastrointestinal: Other (GERD controlled with her medications) Neurological: No Symptoms Other: Reports: None (History of PE) - Physical Assessment NPO Status Date: 12/10/18 NPO Status Time: 05:30 (medications 1810 solids 12/09/18) O2 Sat by Pulse Oximetry: 95 Respiratory Rate: 16 Vital Signs: Last Vital Signs Temp 36.4 C 12/10/18 07:05 Pulse 74 12/10/18 07:05 Resp 16 12/10/18 07:05 BP 147/84 H 12/10/18 07:05 Pulse Ox 95 12/10/18 07:05 Height: 1.68 m Weight: 93.3 kg ASA Class: 2 Mental Status: Alert & Oriented x3 Airway Class: Mallampati = 2 Dentition: Reports: [place](s), Missing Tooth/Teeth, Caries Thyro-Mental Finger Breadths: 3 Mouth Opening Finger Breadths: 3 ROM/Head Extension: Full Lungs: Clear to Auscultation, Normal Respiratory Effort Cardiovascular: Irregular Rhythm - Lab Values: Laboratory Last Values WBC 4.94 K/mm3 (3.98-10.04) 12/10/18 07:22 RBC 4.29 M/mm3 (3.98-5.22) 12/10/18 07:22 Hgb 12.1 gm/L (11.2-15.7) 12/10/18 07:22 Hct 37.5 % (34.1-44.9) 12/10/18 07:22 MCV 87.4 fl (79.4-94.8) 12/10/18 07:22 MCH 28.2 pg (25.6-32.2) 12/10/18 07:22 MCHC 32.3 g/dl (32.2-35.5) 12/10/18 07:22 RDW Std Deviation 45.5 fL (36.4-46.3) 12/10/18 07:22 Plt Count 232 K/mm3 (182-369) 12/10/18 07:22 MPV 10.1 fl (9.4-12.3) 12/10/18 07:22 Neut % (Auto) 74.7 % (34.0-71.1) H 12/10/18 07:22 Lymph % (Auto) 12.6 % (19.3-51.7) L 12/10/18 07:22 [place] % (Auto) 11.3 % (4.7-12.5) 12/10/18 07:22 Eos % (Auto) 0.8 (0.7-5.8) 12/10/18 07:22 Baso % (Auto) 0.4 % (0.1-1.2) 12/10/18 07:22 Neut # (Auto) 3.69 K/mm3 (1.56-6.13) 12/10/18 07:22 Lymph # (Auto) 0.62 K/mm3 (1.18-3.74) L 12/10/18 07:22 [place] # (Auto) 0.56 K/mm3 (0.24-0.36) H 12/10/18 07:22 Eos # (Auto) 0.04 K/mm3 (0.04-0.36) 12/10/18 07:22 Baso # (Auto) 0.02 K/mm3 (0.01-0.08) 12/10/18 07:22 - Allergies Allergies/Adverse Reactions: Allergies Allergy/AdvReac Type Severity Reaction Status Date / Time No Known Allergies Allergy Verified 12/10/18 07:18 - Anesthesia Plan Beta Isabel: Metoprolol Med Last Dose Date: 12/10/18 Med Last Dose Time: 05:30 - Acknowledgements Anesthesia Type Planned: General Anesthesia Pt an Appropriate Candidate for the Planned Anesthesia: Yes Alternatives and Risks of Anesthesia Discussed w Pt/Guardian: Yes Pt/Guardian Understands and Agrees with Anesthesia Plan: Yes PreAnesthesia Questionnaire HEENT History: Reports: Impaired Vision, Other (See Below) Other HEENT History: wears glasses, perioral dermatitis Cardiovascular History: Reports: Afib, Hypertension, Other (See Below) Other Cardiovascular History: bilateral lower leg edema Respiratory History: Reports: PE Gastrointestinal History: Reports: GERD, Other (See Below) Other Gastrointestinal History: incisional hernia Genitourinary History: Reports: Other (See Below) Other 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, diagnostic laparoscopy MANAGER [employer] History: Reports: None Musculoskeletal History: Reports: None Neurological History: Reports: None Psychiatric History: Reports: Depression Endocrine/Metabolic History: Reports: Obesity/BMI 30+ Hematologic History: Reports: Anemia, Blood Transfusion(s), Iron Deficiency Immunologic History: Reports: None Oncologic (Cancer) History: Reports: Uterine Dermatologic History: Reports: Eczema - Infectious Disease History Infectious Disease History: Reports: Chicken Pox, Measles - Past Surgical History Head Surgeries/Procedures: Reports: None HEENT Surgical History: Reports: Cataract Surgery, Other (See Below) Other HEENT Surgeries/Procedures: bilateral cataract surgery Cardiovascular Surgical History: Reports: None Respiratory Surgical History: Reports: None GI Surgical History: Reports: Cholecystectomy Female Surgical History: Reports: Hysterectomy, Salpingo-Oophorectomy Endocrine Surgical History: Reports: None Neurological Surgical History: Reports: None Musculoskeletal Surgical History: Reports: None Oncologic Surgical History: Reports: None Dermatological Surgical History: Reports: None - SUBSTANCE USE Smoking Status *Q: Former Smoker Recreational Drug Use History: No - HOME MEDS Home Medications: Home Meds Irbesartan [Avapro] 300 mg PO DAILY 05/24/17 [History] Omeprazole Magnesium [Prilosec Otc] 20 mg PO DAILY 07/23/17 [History] Rivaroxaban [Xarelto] 20 mg PO DAILY 07/23/17 [History] Metoprolol Succinate [Toprol XL] 50 mg PO BID #60 tab.er 09/10/17 [Rx] Calcium Carb/Vitamin D3/Vit K1 [Viactiv Soft Chew] 1 tab PO BID 12/09/18 [ History] Diltiazem HCl [Diltiazem 24Hr ER] 180 mg PO DAILY 12/09/18 [History] Lysine 500 mg PO BID 12/09/18 [History] hydroCHLOROthiazide [Hydrochlorothiazide] 25 mg PO DAILY 12/09/18 [History] - CURRENT (IN HOUSE) MEDS Current Meds: Current Medications Lactated Ringer's (Ringers, Lactated) 1,000 mls @ 125 mls/hr IV ASDIRECTED SOFI Stop: 12/10/18 23:00 Lidocaine/Sodium Bicarbonate (Buffered Lidocaine 1% In Ns 8.4%) 0.25 ml IDERM ONETIME PRN PRN Reason: Prior to IV Start Stop: 12/10/18 18:00 Sodium Chloride (Saline Flush) 10 ml FLUSH ASDIRECTED PRN PRN Reason: Keep Vein Open Stop: 12/10/18 18:00 Discontinued Medications Bupivacaine HCl/Epinephrine Bitart (Marcaine 0.5%/Epinephrine 1:200,000) Confirm Administered Dose 50 ml .ROUTE .STK-MED ONE Stop: 12/10/18 07:13 Cefazolin Sodium (Ancef) Confirm Administered Dose 2 gm .ROUTE .STK-MED ONE Stop: 12/10/18 07:36 Dexamethasone (Dexamethasone) Confirm Administered Dose 20 mg .ROUTE .STK-MED ONE Stop: 12/10/18 07:37 Fentanyl (Sublimaze) Confirm Administered Dose 250 mcg .ROUTE .STK-MED ONE Stop: 12/10/18 07:36 Lidocaine HCl (Xylocaine-Mpf 1%) Confirm Administered Dose 4 mls @ as directed .ROUTE .STK-MED ONE Stop: 12/10/18 07:36 Lactated Ringer's (Ringers, Lactated) Confirm Administered Dose 1,000 mls @ as directed .ROUTE .STK-MED ONE Stop: 12/10/18 07:36 Lidocaine/Epinephrine (Xylocaine 1% With Epinephrine 1:100,000) Confirm Administered Dose 20 ml .ROUTE .STK-MED ONE Stop: 12/10/18 07:13 Lidocaine/Epinephrine (Xylocaine 1% With Epinephrine 1:100,000) Confirm Administered Dose 20 ml .ROUTE .STK-MED ONE Stop: 12/10/18 07:29 Ondansetron HCl (Zofran) Confirm Administered Dose 4 mg .ROUTE .STK-MED ONE Stop: 12/10/18 07:36 Propofol (Diprivan 20 Ml) Confirm Administered Dose 400 mg .ROUTE .STK-MED ONE Stop: 12/10/18 07:36 Rocuronium [place] (Zemuron) Confirm Administered Dose 50 mg .ROUTE .STK-MED ONE Stop: 12/10/18 07:36
[2018-12-10] MEDS ORDERED: Ondansetron 4 MG/2 ML SDV IVPUSH PRN (08:02)
[2018-12-10] MEDS ORDERED: fentaNYL 100 MCG/2 ML SDV IVPUSH PRN (08:02)
[2018-12-10] MEDS ORDERED: Meperidine 50 MG/ML Vial IVPUSH PRN (08:02)
[2018-12-10] MEDS ORDERED: HYDROmorphone 0.5 MG/0.5 ML Syringe ONE ×2 (08:56→09:37)
[2018-12-10] MEDS ORDERED: fentaNYL 100 MCG/2 ML SDV ONE (09:03)
--- NOTE | 2018-12-10 10:27 | PCM.OPNOTE ---
- General Post-Op/Procedure Note Date of Surgery/Procedure: 12/10/18 Operative Procedure(s): 1. Laparoscopic lysis of adhesions. 2. Laparoscopic ventral incisional hernia repair with mesh Findings: Multiple incisional hernia defects along the beer portion of midline scar Pre Op Diagnosis: Ventral incisional hernia Post-Op Diagnosis: Same Anesthesia Technique: General ET Tube Primary Surgeon: Susy Mixon Anesthesia Provider: Shanthi Robertson Pathology: none Fluid Replacement, Intraop: 1,600 Output, Urine Amount: 0 EBL in mLs: 5 Complications: none apparent Condition: Good
--- NOTE | 2018-12-10 10:31 | PCM.PRNOTE ---
- Free Text/Narrative Note: Operative Report Date of surgery: December 10, 2018 Preoperative diagnosis: . Incisional Ventral hernia Postoperative diagnosis: same Procedure performed: 1. Laparoscopic lysis of adhesions 2. Laparoscopic ventral incisional hernia repair with mesh Surgeon: Dr. Susy iMxon Anesthesia: General ET Transformer Builder: Shanthi Robertson CRNA Estimated blood loss: 5 mL IV fluids: 1600 mL Urine output: None Drains and lines: None Indication for the procedure: The patient is a 73-year-old lady who presented to my office with complaint of an incisional ventral hernia. The patient reports having abdominal surgery that was followed by radiation. She subsequently developed ventral hernias in the area of the incision. I discussed a procedure of a laparoscopic ventral hernia repair with mesh with the patient. Risks of infection, bleeding and mesh complication was reviewed, and written consent was obtained Description of the procedure: The patient presented to the outpatient holding area on the day for procedure history and physical were verified and the consent was present and on the chart. She was taken back to the operating room and placed in supine position on the operating table. SCD boots were placed and functional prior to the service procedure. The patient received preoperative antibiotics as per SCIP protocol. The patient had successful induction of general anesthesia and was intubated without difficulty. The patient's left arm was tucked and the pressure points were padded. The patient was prepped and draped in standard surgical fashion and a timeout was performed. The abdomen was draped with Ioban to begin. A 5 mm incision was then made in the left upper quadrant just under the subcostal margin. A 5 mm port was then inserted into the abdomen with the Visiport technique. The abdomen was insufflated to 15 mmHg. There was no evidence of any injury in the area where we had entered the abdomen. We then proceeded to survey the area of hernia. There were multiple adhesions of omentum and bowel to the abdominal wall. A second 5 mm port was placed under direct visualization in the left lower quadrant. The adhesions were taken down using a combination of the LigaSure device, sharp dissection with scissors and the scissors using cautery. There was more significant scarring and adhesions to the superior most hernia defects. When we had reduced all of the hernia contents and removed all of the adhesions, we inspected the area and the defects. There were 5 separate defects in the area of the incision in the superior midline. An additional 5 mm port was placed in the right abdomen to facilitate visualization and dissection. We then used a spinal needle to size the hernia. In order to cover the area of the hernia defects, a [id number] oval double-sided mesh with balloon inflation device was selected. A 12 mm port was placed into the abdomen in the area of the center the defects. The mesh was then soaked in saline, rolled and placed through this port into the abdomen. The mesh was then unfurled within the abdomen and the balloon inflation portion was inflated to unfurled the mesh on the abdominal wall. The secure strap tacker was then used to circumferentially tack the mesh around the abdominal wall. Two additional 5 mm ports were necessary on the right upper and mid abdomen in order to facilitate appropriate fixation of the mesh and visualization. We then inspected the area. There was good coverage of the hernia defects and the mesh was laying well on the abdominal wall. The abdomen was then desufflated and the ports were removed. The incision sites were then closed with 4-0 Monocryl suture. Dermabond surgical glue were used to cover the port sites. The patient tolerated the procedure well and was transported to the PACU in stable condition. All sponge and needle counts correct. Complications: None apparent. Disposition: Stable to PACU Susy Mixon MD General Surgery
--- NOTE | 2018-12-10 10:33 | PCM.POSTAN ---
POST ANESTHESIA ASSESSMENT - MENTAL STATUS Mental Status: Somnolent - VITAL SIGNS Pulse Rate: 92 SaO2: 97 Resp Rate: 14 Blood Pressure: 142/70 Temperature: 97.3 C - RESPIRATORY Respiratory Status: Respiratory Rate WNL, Airway Patent, O2 Saturation Stable - CARDIOVASCULAR CV Status: Pulse Rate WNL, Blood Pressure Stable - GASTROINTESTINAL GI Status: No Symptoms - PAIN Pain Score: 3 - POST OP HYDRATION Hydration Status: Adequate & Stable
[2018-12-10] MEDS ORDERED: Acetaminophen/HYDROcodone 325-5 MG Tab PO PRN (11:14)
--- NOTE | 2018-12-10 11:27 | PCM48HPAN ---
Post Anesthesia Note - EVALUATION WITHIN 48HRS OF ANESTHETIC Vital Signs in Normal Range: Yes Patient Participated in Evaluation: Yes Respiratory Function Stable: Yes Airway Patent: Yes Cardiovascular Function Stable: Yes Hydration Status Stable: Yes Pain Control Satisfactory: Yes Nausea and Vomiting Control Satisfactory: Yes Mental Status Recovered: Yes Pulse Rate: 72 SaO2: 95 Resp Rate: 16 Temperature: 97.3 C Blood Pressure: 133/75 - COMMENTS/OBSERVATIONS Free Text/Narrative:: pt resting quietly. VSS. no c/o pain.
[2018-12-10 14:58] VITALS: BP 127/71
== END 2018-12-10 14:55 | disposition home or self-care (01) ==
LOC: JD.SDS 06:46
PROVIDERS: ATTEND Surgery
DX: K43.9 Ventral hernia without obstruction or gangrene (principal); D50.9 Iron deficiency anemia, unspecified; I10 Essential (primary) hypertension; K21.9 Gastro-esophageal reflux disease without esophagitis; I48.2 Chronic atrial fibrillation; E66.9 Obesity, unspecified; Z68.33 Body mass index [BMI] 33.0-33.9, adult; Z87.891 Personal history of nicotine dependence; Z79.01 Long term (current) use of anticoagulants; Z79.899 Other long term (current) drug therapy
CPT/HCPCS: 36415; 49652; 85025; A9270; J0690; J1100; J1170; J2001; J2405; J2704; J3010; J3490; J7120; C1781

== ENCOUNTER 2019-11-30 09:24 | Inpatient (IN) | payer MEDICARE, OTHER ==
[2019-11-30] MEDS ORDERED: Sodium Chloride 0.9% 10 ML Syringe FLUSH PRN (10:06)
--- NOTE | 2019-11-30 10:11 | EDM.PDOC ---
<Izabel Whiteside - Last Filed: 11/30/19 09:56> ED HPI GENERAL MEDICAL PROBLEM - General Chief Complaint: Neuro Symptoms/Deficits Stated Complaint: DIZZY X 4 DAYS SURGERY 5 DAYS AGO Time Seen by Provider: 11/30/19 09:55 Source of Information: Reports: Patient History Limitations: Reports: No Limitations - History of Present Illness INITIAL COMMENTS - FREE TEXT/NARRATIVE: 74-year-old female presents with bilateral leg weakness and lightheadedness. She states that she had a right breast lumpectomy last week Thursday that went very well. She had been on chemotherapy since 2017. She has had the lightheadedness since starting chemotherapy but it seems to have worsened since the surgery last week. The patient notes that the lightheadedness and bilateral leg weakness worsens when standing, walking, and trying to perform daily housework. This is causing her great distress as she feels she is not contributing to her home and . She denies headache, numbness/tingling, SOB, chest pain, a fall, and abdominal pain. She does note that her stools seem a little darker after the surgery, but hasn't noticed any visible blood. She has a history of Afib with a PE for which she is taking Xarelto. She is concerned that the weakness may cause her to fall and have a bleed. Duration: Other (Has had lightheadedness since starting Chemo back in 2016, however it seems to have worsened after surgery last week) Location: Reports: Head (lightheaded), Lower Extremity, Left (weakness), Lower Extremity, Right (weakness) Improves with: Reports: Rest Worsens with: Reports: Movement (standing/walking) Associated Symptoms: Reports: Cough (mild, hasn't had it for 2 days now), Weakness. Denies: Chest Pain, Fever/Chills, Headaches, Nausea/Vomiting, Shortness of Breath, Syncope Right Breast Pain Score (Numeric/FACES): 0 - Related Data Allergies Allergy/AdvReac Type Severity Reaction Status Date / Time No Known Allergies Allergy Verified 11/30/19 09:53 Home Meds: Home Meds Irbesartan [Avapro] 300 mg PO DAILY 05/24/17 [History] Omeprazole Magnesium [Prilosec Otc] 20 mg PO DAILY 07/23/17 [History] Rivaroxaban [Xarelto] 20 mg PO DAILY 07/23/17 [History] Metoprolol Succinate [Toprol XL] 50 mg PO BID #60 tab.er 09/10/17 [Rx] Calcium Carb/Vitamin D3/Vit K1 [Viactiv Soft Chew] 1 tab PO BID 12/09/18 [ History] Lysine 500 mg PO BID 12/09/18 [History] dilTIAZem HCl [Diltiazem 24Hr ER (Cd)] 180 mg PO DAILY 12/09/18 [History] hydroCHLOROthiazide [Hydrochlorothiazide] 25 mg PO DAILY 12/09/18 [History] Acetaminophen/HYDROcodone [[place] 325-5 MG] 1 tab PO Q6H PRN 14 Days #40 tablet 12/10/18 [Rx] Docusate Sodium [Colace] 100 mg PO BID 20 Days #40 cap 12/10/18 [Rx] Ibuprofen 600 mg PO Q6HR PRN 20 Days #120 tablet 12/10/18 [Rx] Past Medical History HEENT History: Reports: Impaired Vision, Other (See Below) Other HEENT History: wears glasses, perioral dermatitis Cardiovascular History: Reports: Afib, Hypertension, Other (See Below) Other Cardiovascular History: bilateral lower leg edema Respiratory History: Reports: PE Gastrointestinal History: Reports: GERD, Other (See Below) Other Gastrointestinal History: incisional hernia Genitourinary History: Reports: Other (See Below) Other 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, diagnostic laparoscopy OUTPATIENT THERAPIST History: Reports: None Musculoskeletal History: Reports: None Neurological History: Reports: None Psychiatric History: Reports: Depression Endocrine/Metabolic History: Reports: Obesity/BMI 30+ Hematologic History: Reports: Anemia, Blood Transfusion(s), Iron Deficiency Immunologic History: Reports: None Oncologic (Cancer) History: Reports: Uterine Dermatologic History: Reports: Eczema - Infectious Disease History Infectious Disease History: Reports: Chicken Pox, Measles - Past Surgical History Head Surgeries/Procedures: Reports: None HEENT Surgical History: Reports: Cataract Surgery, Other (See Below) Other HEENT Surgeries/Procedures: bilateral cataract surgery Cardiovascular Surgical History: Reports: None Respiratory Surgical History: Reports: None GI Surgical History: Reports: Cholecystectomy Female Surgical History: Reports: Hysterectomy, Salpingo-Oophorectomy Endocrine Surgical History: Reports: None Neurological Surgical History: Reports: None Musculoskeletal Surgical History: Reports: None Oncologic Surgical History: Reports: None Dermatological Surgical History: Reports: None Social & Family History - Family History Family Medical History: Noncontributory - Caffeine Use Caffeine Use: Reports: Coffee, Soda ED ROS GENERAL - Review of Systems Review Of Systems: See Below Constitutional: Reports: Weakness, Fatigue. Denies: Fever, Chills, Decreased Appetite HEENT: Reports: Glasses. Denies: Ear Pain, Eye Pain, Sinus Problem, Throat Pain , Vertigo, Vision Change Respiratory: Reports: Cough (subsided 2 days ago, mild). Denies: Shortness of Breath Cardiovascular: Reports: Lightheadedness, Other (history of Afib). Denies: Chest Pain, Dyspnea on Exertion, Syncope GI/Abdominal: Reports: Other ("darker stools"). Denies: Abdominal Pain, Bloody Stool, Constipation, Diarrhea, Nausea, Vomiting : Reports: No Symptoms Musculoskeletal: Reports: No Symptoms Skin: Reports: No Symptoms, Other (well healing surgical incision on right breast) Neurological: Reports: Difficulty Walking (bilateral leg weakness), Weakness ( bilateral legs, none in upper extremities). Denies: Confusion, Headache, Numbness, Tingling, Trouble Speaking, Change in Speech Psychiatric: Reports: No Symptoms Hematologic/Lymphatic: Reports: Easy Bleeding (on Xarelto) Immunologic: Reports: No Symptoms ED EXAM, NEURO - Physical Exam Exam: See Below Exam Limited By: No Limitations General Appearance: Alert, WD/WN, No Apparent Distress Eye Exam: Bilateral Eye: EOMI, Normal Inspection, PERRL Throat/Mouth: Other (dry tongue/mucous membranes) Head Exam: Atraumatic, Normocephalic Neck: Normal Inspection, Supple, Non-Tender, Full Range of Motion Respiratory/Chest: No Respiratory Distress, Lungs Clear, Normal Breath Sounds, No Accessory Muscle Use, Chest Non-Tender Cardiovascular: Normal Peripheral Pulses, No Murmur, Irregularly Irregular GI/Abdominal: Normal Bowel Sounds, Soft, Non-Tender, No Organomegaly, No Distention, Hernia Neurological: Alert, Normal Mood/Affect, Normal Dorsiflexion, CN II-XII Intact, Normal Plantar Flexion, No Motor/Sensory Deficits Back Exam: Normal Inspection, Full Range of Motion, NT Extremities: Normal Inspection, Normal Range of Motion, Non-Tender, No Pedal Edema, Normal Capillary Refill Psychiatric: Normal Affect, Normal Mood Skin Exam: Warm, Dry, Intact, Normal Color, No Rash, Other (well healing surgical incision on right breast, bruising around the incision) Course - Vital Signs Last Recorded V/S: Last Vital Signs Temp 98.1 F 11/30/19 09:40 Pulse 82 11/30/19 09:40 Resp 18 11/30/19 09:40 BP 124/55 L 11/30/19 09:40 Pulse Ox 98 11/30/19 09:40 - Orders/Labs/Meds Orders: Active Orders 24 hr Category Date Time Status EKG 12 Lead [EKG Documentation Completion] [] STAT Care 11/30/19 10:05 Active Influenza Vaccine Charge [] .DISCHARGE Care 11/30/19 10:11 Active Peripheral IV Care [] . DIRECTED Care 11/30/19 10:06 Active PACKED CELLS [RED BLOOD CELLS LP] [BBK] Stat Lab 11/30/19 10:35 Received TYPE AND SCREEN [BBK] Stat Lab 11/30/19 10:35 Received Sodium Chloride 0.9% [Normal Saline] 1,000 ml Med 11/30/19 10:15 Active IV ONETIME Sodium Chloride 0.9% [Saline Flush] Med 11/30/19 10:06 Active 10 ml FLUSH ASDIRECTED PRN Peripheral IV Insertion Adult [OM.PC] Stat Oth 11/30/19 10:06 Ordered Medication Orders Sodium Chloride (Normal Saline) 1,000 mls @ 999 mls/hr IV ONETIME [facility] Last Admin: 11/30/19 10:33 Dose: 999 mls/hr Sodium Chloride (Saline Flush) 10 ml FLUSH ASDIRECTED PRN PRN Reason: Keep Vein Open Last Admin: 11/30/19 10:33 Dose: 10 ml Labs: Laboratory Tests 11/30/19 11/30/19 Range/Units 10:35 10:35 WBC 7.47 (3.98-10.04) K/mm3 RBC 2.41 L (3.98-5.22) M/mm3 Hgb 6.6 L* D (11.2-15.7) gm/dl Hct 21.9 L (34.1-44.9) % MCV 90.9 D (79.4-94.8) fl MCH 27.4 (25.6-32.2) pg MCHC 30.1 L (32.2-35.5) g/dl RDW Std Deviation 51.9 H (36.4-46.3) fL Plt Count 261 (182-369) K/mm3 MPV 11.4 (9.4-12.3) fl Neut % (Auto) 72.2 H (34.0-71.1) % Lymph % (Auto) 12.6 L (19.3-51.7) % [place] % (Auto) 10.6 (4.7-12.5) % Eos % (Auto) 3.6 (0.7-5.8) Baso % (Auto) 0.3 (0.1-1.2) % Neut # (Auto) 5.40 (1.56-6.13) K/mm3 Lymph # (Auto) 0.94 L (1.18-3.74) K/mm3 [place] # (Auto) 0.79 H (0.24-0.36) K/mm3 Eos # (Auto) 0.27 (0.04-0.36) K/mm3 Baso # (Auto) 0.02 (0.01-0.08) K/mm3 Manual Slide Review Abnormal smear Sodium 134 L (136-145) mEq/L Potassium 3.9 (3.5-5.1) mEq/L Chloride 101 (98-107) mEq/L Carbon Dioxide 25 (21-32) mEq/L Anion Gap 11.9 (5-15) BUN 29 H (7-18) mg/dL Creatinine 1.4 H (0.55-1.02) mg/dL Est Cr Clr Drug Dosing 33.50 mL/min Estimated GFR (MDRD) 37 (>60) mL/min BUN/Creatinine Ratio 20.7 H (14-18) Glucose 106 (83-115) mg/dL Calcium 9.3 (8.5-10.1) mg/dL Total Bilirubin 0.4 (0.2-1.0) mg/dL AST 20 (15-37) U/L ALT 29 (14-59) U/L Alkaline Phosphatase 101 (46-116) U/L Total Protein 6.2 L (6.4-8.2) g/dl Albumin 2.8 L (3.4-5.0) g/dl Globulin 3.4 gm/dL Albumin/Globulin Ratio 0.8 L (1-2) Meds: Medications Generic Name Dose Route Start Last Admin Trade Name Freq PRN Reason Stop Dose Admin Sodium Chloride 1,000 mls @ 999 mls/hr 11/30/19 10:15 11/30/19 10:33 Normal Saline IV 999 mls/hr ONETIME SOFI Administration Sodium Chloride 10 ml 11/30/19 10:06 11/30/19 10:33 Saline Flush FLUSH 10 ml ASDIRECTED PRN Administration Keep Vein Open Discontinued Medications Generic Name Dose Route Start Last Admin Trade Name Freq PRN Reason Stop Dose Admin Influenza Virus Vaccine 180 mcg 11/30/19 10:30 11/30/19 10:51 Fluzone High-Dose 2019-20 Syringe IM 11/30/19 10:31 180 mcg .ONCE ONE Administration Departure - Departure Disposition: Admitted As Inpatient 67 Clinical Impression: Upper GI hemorrhage, Anemia - Discharge Information Referrals: Lucía Duque MD [Primary Care Provider] - Forms: ED Department Discharge Sepsis Event Note - Evaluation Sepsis Screening Result: No Definite Risk - Focused Exam Vital Signs: Vital Signs Temp Pulse Resp BP Pulse Ox 11/30/19 09:40 98.1 F 82 18 124/55 L 98 Date Exam was Performed: 11/30/19 Time Exam was Performed: 09:56 - My Orders Last 24 Hours: My Active Orders 11/30/19 10:05 EKG 12 Lead [EKG Documentation Completion] [RC] STAT 11/30/19 10:06 Peripheral IV Care [RC] . DIRECTED Sodium Chloride 0.9% [Saline Flush] 10 ml FLUSH ASDIRECTED PRN Peripheral IV Insertion Adult [OM.PC] Stat 11/30/19 10:11 Influenza Vaccine Charge [RC] .DISCHARGE 11/30/19 10:15 Sodium Chloride 0.9% [Normal Saline] 1,000 ml IV ONETIME 11/30/19 10:35 PACKED CELLS [RED BLOOD CELLS LP] [BBK] Stat TYPE AND SCREEN [BBK] Stat - Assessment/Plan Last 24 Hours: My Active Orders 11/30/19 10:05 EKG 12 Lead [EKG Documentation Completion] [RC] STAT 11/30/19 10:06 Peripheral IV Care [RC] . DIRECTED Sodium Chloride 0.9% [Saline Flush] 10 ml FLUSH ASDIRECTED PRN Peripheral IV Insertion Adult [OM.PC] Stat 11/30/19 10:11 Influenza Vaccine Charge [RC] .DISCHARGE 11/30/19 10:15 Sodium Chloride 0.9% [Normal Saline] 1,000 ml IV ONETIME 11/30/19 10:35 PACKED CELLS [RED BLOOD CELLS LP] [BBK] Stat TYPE AND SCREEN [BBK] Stat <Dre Anderson L - Last Filed: 11/30/19 11:49> ED EXAM, NEURO - Physical Exam Rectal (Female) Exam: Other (Brown stool, no gross blood, strongly heme positive , no mass palpable) Course - Re-Assessments/Exams Free Text/Narrative Re-Assessment/Exam: 11/30/19 11:31. Initial hx and exam was done by BRANDON Wu student. I agree with her history and exam as documented. I have also interviewed and examined patient. Of note she states that she did have black tarry stools about a week ago at the time of her lumpectomy surgery. She also did have anemia over 2 years ago at the time of her chemotherapy for "uterine cancer". She has been feeling very weak lightheaded and dizzy especially yesterday and today when standing and walking. She is on xarelto for A fib. and also on 3 BP meds. Order for Type and screen 2 units PRBC's has been placed. Patient's vitals are okay lying and 125/80 range but she did drop her blood pressure and increase her heart rate from lying to standing. She will be admitted ICU inpatient for further eval and treatment. I did notify Dr. Casillas who is automotive power electronics engineer for surgery and she is agreeable to consult, help evaluate as appropriate. Departure - Departure Time of Disposition: 11:48 Condition: Serious Sepsis Event Note - Focused Exam Date Exam was Performed: 11/30/19 Time Exam was Performed: 11:45 ED Communication - Discussed Case With (1) Discussed Case With (1): Admitting Provider (Dr Parsons, decision to admit at [facility] 11;35.)
[2019-11-30] MEDS ORDERED: Sodium Chloride 0.9% 1,000 ML IV SCH (10:15)
[2019-11-30] MEDS ORDERED: Pantoprazole 40 MG Vial IVPUSH ONE ×2 (12:14→14:00)
[2019-11-30] MEDS: Sodium Chloride 0.9% 250 ML IV SCH ×2 (13:54→17:11)
[2019-11-30] MEDS: Pantoprazole 80 MG in Sodium Chloride 0.9% 100 ML IV SCH ×3 (13:55→15:07)
[2019-11-30] MEDS ORDERED: Ondansetron 4 MG/2 ML SDV IV PRN (14:30)
[2019-11-30] MEDS ORDERED: Acetaminophen 325 MG Tab PO PRN (14:30)
[2019-11-30] MEDS ORDERED: Acetaminophen/HYDROcodone 325-5 MG Tab PO PRN (14:42)
--- NOTE | 2019-11-30 14:51 | PCM.HP.2 ---
H&P History of Present Illness - General Date of Service: 11/30/19 Admit Problem/Dx: Admission Diagnosis/Problem Admission Diagnosis/Problem Gastric hemorrhage - History of Present Illness Initial Comments - Free Text/Narative: Patient presented to the emergency room with a chief complaint of generalized weakness and dizziness when getting up. Patient has a past medical history for uterine cancer treated with chemotherapy and surgery in 2016, DVT during treatment of her uterine cancer in 2017, and breast cancer with a recent lumpectomy, atrial fibrillation and hypertension. Patient states that starting approximately 1 week ago, on the way to get a lumpectomy in [place], patient developed black stools. She states that since then it has been dark brown to black. Also on the way to [place] she had a burning in her epigastrium. Patient is on Xarelto for atrial fibrillation and stopped the Xarelto 3 days prior to her breast biopsy. Breast biopsy was on the , she stopped her Xarelto on the , and she restarted on the . Patient denies any NSAID use over the last year. She has had some congestion recently. On presentation to the emergency room patient was found to have a hemoglobin of 6.6. Emergency room provider did a rectal which was grossly positive for occult blood, but was brown stool. She was then typed and crossed for 2 units and transferred to the ICU. Right Breast Pain Score (Numeric/FACES): 0 - Related Data Allergies/Adverse Reactions: Allergies Allergy/AdvReac Type Severity Reaction Status Date / Time No Known Allergies Allergy Verified 11/30/19 12:56 Home Medications: Home Meds Irbesartan [Avapro] 300 mg PO DAILY 05/24/17 [History] Omeprazole Magnesium [Prilosec Otc] 20 mg PO DAILY 07/23/17 [History] Rivaroxaban [Xarelto] 20 mg PO DAILY 07/23/17 [History] Metoprolol Succinate [Toprol XL] 50 mg PO BID #60 tab.er 09/10/17 [Rx] Calcium Carb/Vitamin D3/Vit K1 [Viactiv Soft Chew] 1 tab PO BID 12/09/18 [ History] Lysine 500 mg PO BID 12/09/18 [History] dilTIAZem HCl [Diltiazem 24Hr ER (Cd)] 180 mg PO BID 12/09/18 [History] hydroCHLOROthiazide [Hydrochlorothiazide] 25 mg PO DAILY 12/09/18 [History] Acetaminophen/HYDROcodone [[place] 325-5 MG] 1 tab PO Q6H PRN 14 Days #40 tablet 12/10/18 [Rx] Alpha Lipoic Acid 600 mg PO DAILY 11/30/19 [History] Antiox.mv No.10/Omeg3s/Lut/Markie [I-Caps with Lutein-[place] 3 SFG] 2 cap PO DAILY 11/30/19 [History] Hydrocortisone [Hydrocortisone 2.5% Crm] 1 applic TOP QID PRN 11/30/19 [History] Triamcinolone Acetonide [Triamcinolone Acetonide 0.1% Crm] 1 applic TOP DAILY PRN 11/30/19 [History] Past Medical History HEENT History: Reports: Impaired Vision, Other (See Below) Other HEENT History: wears glasses, perioral dermatitis Cardiovascular History: Reports: Afib, Hypertension, Other (See Below) Other Cardiovascular History: bilateral lower leg edema Respiratory History: Reports: PE Gastrointestinal History: Reports: GERD, Other (See Below) Other Gastrointestinal History: incisional hernia Genitourinary History: Reports: Other (See Below) Other 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, diagnostic laparoscopy CABLEMAN History: Reports: None Musculoskeletal History: Reports: None Neurological History: Reports: None Psychiatric History: Reports: Depression Endocrine/Metabolic History: Reports: Obesity/BMI 30+ Hematologic History: Reports: Anemia, Blood Transfusion(s), Iron Deficiency Immunologic History: Reports: None Oncologic (Cancer) History: Reports: Uterine Dermatologic History: Reports: Eczema - Infectious Disease History Infectious Disease History: Reports: Chicken Pox, Measles, Mumps - Past Surgical History Head Surgeries/Procedures: Reports: None HEENT Surgical History: Reports: Cataract Surgery, Other (See Below) Other HEENT Surgeries/Procedures: bilateral cataract surgery Cardiovascular Surgical History: Reports: None Respiratory Surgical History: Reports: None GI Surgical History: Reports: Cholecystectomy Female Surgical History: Reports: Hysterectomy, Salpingo-Oophorectomy Endocrine Surgical History: Reports: None Neurological Surgical History: Reports: None Musculoskeletal Surgical History: Reports: None Oncologic Surgical History: Reports: Biopsy of Breast, Lumpectomy Other Oncologic Surgeries/Procedures: R breast Dermatological Surgical History: Reports: None Social & Family History - Family History Family Medical History: Noncontributory - Tobacco Use Smoking Status *Q: Former Smoker Used Tobacco, but Quit: Yes Month/Year Tobacco Last Used: 11/1968 Second Hand Smoke Exposure: No - Caffeine Use Caffeine Use: Reports: Coffee, Tea - Recreational Drug Use Recreational Drug Use: No H&P Review of Systems - Review of Systems: Review Of Systems: Comprehensive ROS is negative, except as noted in HPI. Exam - Exam Exam: See Below - Vital Signs Vital Signs: Last Vital Signs Temp 99.1 F 11/30/19 14:09 Pulse 72 11/30/19 14:09 Resp 16 11/30/19 14:09 BP 127/76 11/30/19 14:09 Pulse Ox 99 11/30/19 12:36 Weight: 218 lb 6.4 oz - Exam Quality Assessment: Supplemental Oxygen General: Alert, Oriented, 4 HEENT: Conjunctiva Clear, EACs Clear, Mucosa Moist & [place], Normal Nasal Septum Neck: Supple, Trachea Midline, 2 Lungs: Clear to Auscultation, Normal Respiratory Effort Cardiovascular: Regular Rate, Regular Rhythm GI/Abdominal Exam: Normal Bowel Sounds, Soft, Non-Tender, No Organomegaly, No Distention, No Abnormal Bruit, No Mass, Pelvis Stable Rectal (Female) Exam: Deferred (Deferred since and in ER) Extremities: Normal Inspection, Normal Range of Motion, Non-Tender, No Pedal Edema, Normal Capillary Refill Peripheral Pulses: 1+: Posterior Tibial (L), Posterior Tibial (R), Dorsalis Pedis (L), Dorsalis Pedis (R) Skin: Warm, Dry, Intact Neurological: Cranial Nerves Intact Neuro Extensive - Mental Status: Alert, Oriented x3, Normal Mood/Affect, Normal Cognition, Memory Intact Neuro Extensive - Motor, Sensory, Reflexes: CN II-XII Intact Psychiatric: Alert, Normal Affect, Normal Mood - Patient Data Lab Results Last 24 hrs: Laboratory Results - last 24 hr 11/30/19 11/30/19 11/30/19 Range/Units 10:35 10:35 10:35 WBC 7.47 (3.98-10.04) K/mm3 RBC 2.41 L (3.98-5.22) M/mm3 Hgb 6.6 L* D (11.2-15.7) gm/dl Hct 21.9 L (34.1-44.9) % MCV 90.9 D (79.4-94.8) fl MCH 27.4 (25.6-32.2) pg MCHC 30.1 L (32.2-35.5) g/dl RDW Std Deviation 51.9 H (36.4-46.3) fL Plt Count 261 (182-369) K/mm3 MPV 11.4 (9.4-12.3) fl Neut % (Auto) 72.2 H (34.0-71.1) % Lymph % (Auto) 12.6 L (19.3-51.7) % Daniels % (Auto) 10.6 (4.7-12.5) % Eos % (Auto) 3.6 (0.7-5.8) Baso % (Auto) 0.3 (0.1-1.2) % Neut # (Auto) 5.40 (1.56-6.13) K/mm3 Lymph # (Auto) 0.94 L (1.18-3.74) K/mm3 Daniels # (Auto) 0.79 H (0.24-0.36) K/mm3 Eos # (Auto) 0.27 (0.04-0.36) K/mm3 Baso # (Auto) 0.02 (0.01-0.08) K/mm3 Manual Slide Review Abnormal smear Sodium 134 L (136-145) mEq/L Potassium 3.9 (3.5-5.1) mEq/L Chloride 101 (98-107) mEq/L Carbon Dioxide 25 (21-32) mEq/L Anion Gap 11.9 (5-15) BUN 29 H (7-18) mg/dL Creatinine 1.4 H (0.55-1.02) mg/dL Est Cr Clr Drug Dosing 33.50 mL/min Estimated GFR (MDRD) 37 (>60) mL/min BUN/Creatinine Ratio 20.7 H (14-18) Glucose 106 (83-115) mg/dL Calcium 9.3 (8.5-10.1) mg/dL Magnesium (1.8-2.4) mg/dl Total Bilirubin 0.4 (0.2-1.0) mg/dL AST 20 (15-37) U/L ALT 29 (14-59) U/L Alkaline Phosphatase 101 (46-116) U/L Total Protein 6.2 L (6.4-8.2) g/dl Albumin 2.8 L (3.4-5.0) g/dl Globulin 3.4 gm/dL Albumin/Globulin Ratio 0.8 L (1-2) Blood Type O POSITIVE Gel Antibody Screen Negative Crossmatch See Detail 11/30/19 Range/Units 10:35 WBC (3.98-10.04) K/mm3 RBC (3.98-5.22) M/mm3 Hgb (11.2-15.7) gm/dl Hct (34.1-44.9) % MCV (79.4-94.8) fl MCH (25.6-32.2) pg MCHC (32.2-35.5) g/dl RDW Std Deviation (36.4-46.3) fL Plt Count (182-369) K/mm3 MPV (9.4-12.3) fl Neut % (Auto) (34.0-71.1) % Lymph % (Auto) (19.3-51.7) % Daniels % (Auto) (4.7-12.5) % Eos % (Auto) (0.7-5.8) Baso % (Auto) (0.1-1.2) % Neut # (Auto) (1.56-6.13) K/mm3 Lymph # (Auto) (1.18-3.74) K/mm3 Daniels # (Auto) (0.24-0.36) K/mm3 Eos # (Auto) (0.04-0.36) K/mm3 Baso # (Auto) (0.01-0.08) K/mm3 Manual Slide Review Sodium (136-145) mEq/L Potassium (3.5-5.1) mEq/L Chloride (98-107) mEq/L Carbon Dioxide (21-32) mEq/L Anion Gap (5-15) BUN (7-18) mg/dL Creatinine (0.55-1.02) mg/dL Est Cr Clr Drug Dosing mL/min Estimated GFR (MDRD) (>60) mL/min BUN/Creatinine Ratio (14-18) Glucose (83-115) mg/dL Calcium (8.5-10.1) mg/dL Magnesium 1.8 (1.8-2.4) mg/dl Total Bilirubin (0.2-1.0) mg/dL AST (15-37) U/L ALT (14-59) U/L Alkaline Phosphatase (46-116) U/L Total Protein (6.4-8.2) g/dl Albumin (3.4-5.0) g/dl Globulin gm/dL Albumin/Globulin Ratio (1-2) Blood Type Gel Antibody Screen Crossmatch Result Diagrams: 11/30/19 10:35 11/30/19 10:35 Sepsis Event Note - Evaluation Sepsis Screening Result: No Definite Risk - Focused Exam Vital Signs: Vital Signs Temp Temp Pulse Resp BP Pulse Ox 11/30/19 14:09 99.1 F 72 16 127/76 11/30/19 13:46 98.2 F 69 134/89 11/30/19 12:36 74 18 99/87 99 11/30/19 12:17 98.9 F 18 129/74 99 11/30/19 09:40 98.1 F 82 18 124/55 L 98 Date Exam was Performed: 11/30/19 Time Exam was Performed: 16:12 Problem List Initiated/Reviewed/Updated: Yes Orders Last 24hrs: Active Orders 24 hr Category Date Time Status Admission Status [Patient Status] [ADT] Routine ADT 11/30/19 12:00 Active Antiembolic Devices [RC] PER UNIT ROUTINE Care 11/30/19 14:34 Ordered Notify Provider Consults [RC] ASDIRECTED Care 11/30/19 14:34 Ordered Up ad Lauren [RC] ASDIRECTED Care 11/30/19 14:30 Ordered VTE/DVT Education [RC] PER UNIT ROUTINE Care 11/30/19 14:30 Ordered Vital Signs [RC] ASDIRECTED Care 11/30/19 14:30 Ordered Consult to Physician [CONS] Routine Cons 11/30/19 14:33 Ordered Nothing per Oral Now Diet [DIET] Diet 11/30/19 Dinner Ordered COMPREHENSIVE METABOLIC PN,CMP [CHEM] AM Lab 12/01/19 05:11 Ordered COMPREHENSIVE METABOLIC PN,CMP [CHEM] AM Lab 12/02/19 05:11 Ordered COMPREHENSIVE METABOLIC PN,CMP [CHEM] AM Lab 12/03/19 05:11 Ordered COMPREHENSIVE METABOLIC PN,CMP [CHEM] AM Lab 12/04/19 05:11 Ordered COMPREHENSIVE METABOLIC PN,CMP [CHEM] AM Lab 12/05/19 05:11 Ordered H PYLORI STOOL ANTIGEN [MREF] Routine Lab 11/30/19 14:36 Ordered HEMOGLOBIN/HEMATOCRIT,HH [HEME] Q4H Lab 11/30/19 20:00 Ordered HEMOGLOBIN/HEMATOCRIT,HH [HEME] Q4H Lab 12/01/19 00:00 Ordered HEMOGLOBIN/HEMATOCRIT,HH [HEME] Q4H Lab 12/01/19 04:00 Ordered HEMOGLOBIN/HEMATOCRIT,HH [HEME] Q4H Lab 12/01/19 08:00 Ordered HEMOGLOBIN/HEMATOCRIT,HH [HEME] Q4H Lab 12/01/19 12:00 Ordered HEMOGLOBIN/HEMATOCRIT,HH [HEME] Q4H Lab 12/01/19 16:00 Ordered INR,PT,PROTHROMBIN TIME [COAG] Stat Lab 11/30/19 14:33 Ordered MAGNESIUM [CHEM] AM Lab 12/01/19 05:11 Ordered MAGNESIUM [CHEM] AM Lab 12/02/19 05:11 Ordered MAGNESIUM [CHEM] AM Lab 12/03/19 05:11 Ordered MAGNESIUM [CHEM] AM Lab 12/04/19 05:11 Ordered MAGNESIUM [CHEM] AM Lab 12/05/19 05:11 Ordered PACKED CELLS [RED BLOOD CELLS LP] [BBK] Stat Lab 11/30/19 10:35 Results PTT,PARTIAL THROMBOPLSTIN TIME [COAG] Stat Lab 11/30/19 14:33 Ordered TYPE AND SCREEN [BBK] Stat Lab 11/30/19 10:35 Results Acetaminophen [Tylenol] Med 11/30/19 14:30 Ordered 650 mg PO Q4H PRN Acetaminophen/HYDROcodone [[place] 325-5 MG] Med 11/30/19 14:42 Ordered 1 tab PO Q6H PRN Diltiazem [Cardizem CD] Med 11/30/19 21:00 Ordered 180 mg PO BID Furosemide [Lasix] Med 11/30/19 17:30 Once 20 mg IVPUSH NOW ONE Irbesartan Med 12/01/19 09:00 Ordered 300 mg PO DAILY Metoprolol Succinate [Toprol XL] Med 11/30/19 21:00 Ordered 50 mg PO BID Ondansetron [Zofran] Med 11/30/19 14:30 Ordered 4 mg IV Q4H PRN Pantoprazole [ProTONIX IV] 80 mg Med 11/30/19 15:00 Active Sodium Chloride 0.9% [Normal Saline] 100 ml IV Q10H Sodium Chloride 0.9% [Normal Saline] 1,000 ml Med 11/30/19 10:15 Active IV ONETIME Sodium Chloride 0.9% [Normal Saline] 250 ml Med 11/30/19 13:45 Active IV ASDIRECTED Sodium Chloride 0.9% [Saline Flush] Med 11/30/19 10:06 Active 10 ml FLUSH ASDIRECTED PRN hydroCHLOROthiazide Med 12/01/19 09:00 Ordered 25 mg PO DAILY Peripheral IV Insertion Adult [OM.PC] Stat Oth 11/30/19 10:06 Ordered Sequential Compression Device [OM.PC] Per Unit Routine Oth 11/30/19 14:31 Ordered Resuscitation Status Routine Resus Stat 11/30/19 14:30 Ordered Medication Orders Acetaminophen (Tylenol) 650 mg PO Q4H PRN PRN Reason: Pain (Mild 1-3)/fever Hydrocodone Bitart/Acetaminophen ([place] 325-5 Mg) 1 tab PO Q6H PRN PRN Reason: Pain (moderate 4-6) Diltiazem HCl (Cardizem Cd) 180 mg PO BID SOFI Furosemide (Lasix) 20 mg IVPUSH NOW ONE Stop: 11/30/19 17:31 Hydrochlorothiazide (Hydrochlorothiazide) 25 mg PO DAILY SOFI Sodium Chloride (Normal Saline) 1,000 mls @ 999 mls/hr IV ONETIME SOFI Last Admin: 11/30/19 10:33 Dose: 999 mls/hr Sodium Chloride (Normal Saline) 250 mls @ 150 mls/hr IV ASDIRECTED SOFI Last Infusion: 11/30/19 14:05 Dose: 0 mls/hr Admin: 11/30/19 13:54 Dose: 150 mls/hr Pantoprazole Sodium 80 mg/ (Sodium Chloride) 100 mls @ 10 mls/hr IV Q10H SOFI Metoprolol Succinate (Toprol Xl) 50 mg PO BID SOFI Non-Formulary Medication (Irbesartan) 300 mg PO DAILY SOFI Ondansetron HCl (Zofran) 4 mg IV Q4H PRN PRN Reason: Nausea/Vomiting Sodium Chloride (Saline Flush) 10 ml FLUSH ASDIRECTED PRN PRN Reason: Keep Vein Open Last Admin: 11/30/19 10:33 Dose: 10 ml Assessment/Plan Comment:: Assessment * Upper GI bleed * On Xarelto for atrial fibrillation -Xarelto was taken this morning * Hemoglobin 6.6 * Type, cross, and give 2 units packed red blood cells * Atrial fibrillation * Rate controlled with diltiazem and metoprolol * Xarelto for stroke prevention * Breast cancer 1 week post lumpectomy * Patient was off Xarelto for 5 days last week * History of urine cancer 2016 * GERD * On omeprazole 20 mg daily * Hypertension * On irbesartan 300 mg daily, metoprolol succinate 50 mg twice daily, diltiazem 24-hour ER 180 mg twice daily, hydrochlorothiazide 25 mg daily, losartan 100 mg daily Plan * Admit to ICU for close monitoring * 2 L O2 via nasal cannula until hemoglobin stable * Stop Xarelto * Pantoprazole 80 mg IV bolus * Pantoprazole 8 mg/h IV * NPO until H&H stable, then advance slowly. * Consult surgery * Follow H&H every 4 hours * Reconcile home meds and continue blood pressure rate control medications as above. * VTE prophylaxis with SCDs * CODE STATUS: Full code * Anticipated length of stay 2 to 3 days. - Mortality Measure Prognosis:: Good
--- NOTE | 2019-11-30 15:20 | PCM.CONS ---
H&P History of Present Illness - General Date of Service: 11/30/19 Admit Problem/Dx: Admission Diagnosis/Problem Admission Diagnosis/Problem Gastric hemorrhage Source of Information: Patient, Provider History Limitations: Reports: No Limitations - History of Present Illness Initial Comments - Free Text/Narative: The patient is a 74 y/o lady who presents with an UGI bleed. She reports having burning abdominal pain 8 days ago, and this was followed by an episode of melena. She has had melena daily since that time. She had a lumpectomy 7 days ago with a sentinel lymph node biopsy on the right. She stopped her Xarelto in the perioperative period, but has been on it again for the last 5 days. She reports frequent heartburn, but no worsening symptoms lately. Right Breast Pain Score (Numeric/FACES): 0 - Related Data Allergies/Adverse Reactions: Allergies Allergy/AdvReac Type Severity Reaction Status Date / Time No Known Allergies Allergy Verified 11/30/19 12:56 Home Medications: Home Meds Irbesartan [Avapro] 300 mg PO DAILY 05/24/17 [History] Omeprazole Magnesium [Prilosec Otc] 20 mg PO DAILY 07/23/17 [History] Rivaroxaban [Xarelto] 20 mg PO DAILY 07/23/17 [History] Metoprolol Succinate [Toprol XL] 50 mg PO BID #60 tab.er 09/10/17 [Rx] Calcium Carb/Vitamin D3/Vit K1 [Viactiv Soft Chew] 1 tab PO BID 12/09/18 [ History] Lysine 500 mg PO BID 12/09/18 [History] dilTIAZem HCl [Diltiazem 24Hr ER (Cd)] 180 mg PO BID 12/09/18 [History] hydroCHLOROthiazide [Hydrochlorothiazide] 25 mg PO DAILY 12/09/18 [History] Acetaminophen/HYDROcodone [[place]a 325-5 MG] 1 tab PO Q6H PRN 14 Days #40 tablet 12/10/18 [Rx] Alpha Lipoic Acid 600 mg PO DAILY 11/30/19 [History] Antiox.mv No.10/Omeg3s/Lut/Markie [I-Caps with Lutein-[place] 3 SFG] 2 cap PO DAILY 11/30/19 [History] Hydrocortisone [Hydrocortisone 2.5% Crm] 1 applic TOP QID PRN 11/30/19 [History] Triamcinolone Acetonide [Triamcinolone Acetonide 0.1% Crm] 1 applic TOP DAILY PRN 11/30/19 [History] Past Medical History HEENT History: Reports: Impaired Vision, Other (See Below) Other HEENT History: wears glasses, perioral dermatitis Cardiovascular History: Reports: Afib, Hypertension, Other (See Below) Other Cardiovascular History: bilateral lower leg edema Respiratory History: Reports: PE Gastrointestinal History: Reports: GERD, Other (See Below) Other Gastrointestinal History: incisional hernia Genitourinary History: Reports: Other (See Below) Other 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, diagnostic laparoscopy [employer] History: Reports: None Musculoskeletal History: Reports: None Neurological History: Reports: None Psychiatric History: Reports: Depression Endocrine/Metabolic History: Reports: Obesity/BMI 30+ Hematologic History: Reports: Anemia, Blood Transfusion(s), Iron Deficiency Immunologic History: Reports: None Oncologic (Cancer) History: Reports: Uterine Dermatologic History: Reports: Eczema - Infectious Disease History Infectious Disease History: Reports: Chicken Pox, Measles, Mumps - Past Surgical History Head Surgeries/Procedures: Reports: None HEENT Surgical History: Reports: Cataract Surgery, Other (See Below) Other HEENT Surgeries/Procedures: bilateral cataract surgery Cardiovascular Surgical History: Reports: None Respiratory Surgical History: Reports: None GI Surgical History: Reports: Cholecystectomy Female Surgical History: Reports: Hysterectomy, Salpingo-Oophorectomy Endocrine Surgical History: Reports: None Neurological Surgical History: Reports: None Musculoskeletal Surgical History: Reports: None Oncologic Surgical History: Reports: Biopsy of Breast, Lumpectomy Other Oncologic Surgeries/Procedures: R breast Dermatological Surgical History: Reports: None Social & Family History - Family History Cardiac: Reports: Hypertension Endocrine/Metabolic: Reports: Diabetes, type II Oncologic: Reports: Skin - Tobacco Use Smoking Status *Q: Former Smoker Used Tobacco, but Quit: Yes Month/Year Tobacco Last Used: 11/1968 Second Hand Smoke Exposure: No - Caffeine Use Caffeine Use: Reports: Coffee, Tea - Recreational Drug Use Recreational Drug Use: No H&P Review of Systems - Review of Systems: Review Of Systems: See Below General: Reports: Fatigue HEENT: Reports: No Symptoms Pulmonary: Reports: Cough (after recent surgery) Cardiovascular: Reports: Lightheadedness Gastrointestinal: Reports: Abdominal Pain, Melena Genitourinary: Reports: No Symptoms Musculoskeletal: Reports: No Symptoms Skin: Reports: Pallor Neurological: Reports: Dizziness, Weakness Exam - Exam Exam: See Below - Vital Signs Vital Signs: Last Vital Signs Temp 37.3 C 11/30/19 14:09 Pulse 72 11/30/19 14:09 Resp 16 11/30/19 14:09 BP 127/76 11/30/19 14:09 Pulse Ox 99 11/30/19 12:36 Weight: 99.065 kg - Exam Quality Assessment: Supplemental Oxygen General: Alert, Oriented HEENT: Conjunctiva Clear, EOMI Neck: Supple Lungs: Clear to Auscultation, Normal Respiratory Effort Cardiovascular: Regular Rate. No: Tachycardia GI/Abdominal Exam: Soft, Non-Tender, No Distention, Hernia (recurrent incisional hernia) Extremities: Normal Inspection, No Pedal Edema Peripheral Pulses: 2+: Dorsalis Pedis (L), Dorsalis Pedis (R) Skin: Warm, Dry, Intact, Wound (on right breast and axilla are healing well, no erythema) Neurological: Cranial Nerves Intact Neuro Extensive - Mental Status: Normal Mood/Affect - Patient Data Lab Results Last 24 hrs: Laboratory Results - last 24 hr 11/30/19 11/30/19 11/30/19 Range/Units 10:35 10:35 10:35 WBC 7.47 (3.98-10.04) K/mm3 RBC 2.41 L (3.98-5.22) M/mm3 Hgb 6.6 L* D (11.2-15.7) gm/dl Hct 21.9 L (34.1-44.9) % MCV 90.9 D (79.4-94.8) fl MCH 27.4 (25.6-32.2) pg MCHC 30.1 L (32.2-35.5) g/dl RDW Std Deviation 51.9 H (36.4-46.3) fL Plt Count 261 (182-369) K/mm3 MPV 11.4 (9.4-12.3) fl Neut % (Auto) 72.2 H (34.0-71.1) % Lymph % (Auto) 12.6 L (19.3-51.7) % [place] % (Auto) 10.6 (4.7-12.5) % Eos % (Auto) 3.6 (0.7-5.8) Baso % (Auto) 0.3 (0.1-1.2) % Neut # (Auto) 5.40 (1.56-6.13) K/mm3 Lymph # (Auto) 0.94 L (1.18-3.74) K/mm3 [place] # (Auto) 0.79 H (0.24-0.36) K/mm3 Eos # (Auto) 0.27 (0.04-0.36) K/mm3 Baso # (Auto) 0.02 (0.01-0.08) K/mm3 Manual Slide Review Abnormal smear Sodium 134 L (136-145) mEq/L Potassium 3.9 (3.5-5.1) mEq/L Chloride 101 (98-107) mEq/L Carbon Dioxide 25 (21-32) mEq/L Anion Gap 11.9 (5-15) BUN 29 H (7-18) mg/dL Creatinine 1.4 H (0.55-1.02) mg/dL Est Cr Clr Drug Dosing 33.50 mL/min Estimated GFR (MDRD) 37 (>60) mL/min BUN/Creatinine Ratio 20.7 H (14-18) Glucose 106 (83-115) mg/dL Calcium 9.3 (8.5-10.1) mg/dL Magnesium (1.8-2.4) mg/dl Total Bilirubin 0.4 (0.2-1.0) mg/dL AST 20 (15-37) U/L ALT 29 (14-59) U/L Alkaline Phosphatase 101 (46-116) U/L Total Protein 6.2 L (6.4-8.2) g/dl Albumin 2.8 L (3.4-5.0) g/dl Globulin 3.4 gm/dL Albumin/Globulin Ratio 0.8 L (1-2) Blood Type O POSITIVE Gel Antibody Screen Negative Crossmatch See Detail 11/30/19 Range/Units 10:35 WBC (3.98-10.04) K/mm3 RBC (3.98-5.22) M/mm3 Hgb (11.2-15.7) gm/dl Hct (34.1-44.9) % MCV (79.4-94.8) fl MCH (25.6-32.2) pg MCHC (32.2-35.5) g/dl RDW Std Deviation (36.4-46.3) fL Plt Count (182-369) K/mm3 MPV (9.4-12.3) fl Neut % (Auto) (34.0-71.1) % Lymph % (Auto) (19.3-51.7) % [place] % (Auto) (4.7-12.5) % Eos % (Auto) (0.7-5.8) Baso % (Auto) (0.1-1.2) % Neut # (Auto) (1.56-6.13) K/mm3 Lymph # (Auto) (1.18-3.74) K/mm3 [place] # (Auto) (0.24-0.36) K/mm3 Eos # (Auto) (0.04-0.36) K/mm3 Baso # (Auto) (0.01-0.08) K/mm3 Manual Slide Review Sodium (136-145) mEq/L Potassium (3.5-5.1) mEq/L Chloride (98-107) mEq/L Carbon Dioxide (21-32) mEq/L Anion Gap (5-15) BUN (7-18) mg/dL Creatinine (0.55-1.02) mg/dL Est Cr Clr Drug Dosing mL/min Estimated GFR (MDRD) (>60) mL/min BUN/Creatinine Ratio (14-18) Glucose (83-115) mg/dL Calcium (8.5-10.1) mg/dL Magnesium 1.8 (1.8-2.4) mg/dl Total Bilirubin (0.2-1.0) mg/dL AST (15-37) U/L ALT (14-59) U/L Alkaline Phosphatase (46-116) U/L Total Protein (6.4-8.2) g/dl Albumin (3.4-5.0) g/dl Globulin gm/dL Albumin/Globulin Ratio (1-2) Blood Type Gel Antibody Screen Crossmatch Result Diagrams: 11/30/19 10:35 11/30/19 10:35 Sepsis Event Note - Evaluation Sepsis Screening Result: No Definite Risk - Focused Exam Vital Signs: Vital Signs Temp Temp Pulse Resp BP Pulse Ox 11/30/19 14:09 37.3 C 72 16 127/76 11/30/19 13:46 36.8 C 69 134/89 11/30/19 12:36 74 18 99/87 99 11/30/19 12:17 37.2 C 18 129/74 99 11/30/19 09:40 36.7 C 82 18 124/55 L 98 Date Exam was Performed: 11/30/19 Time Exam was Performed: 15:25 Consult PN Assessment/Plan Procedures: Procedures ASSAY OF MAGNESIUM (09/06/17) ASSAY OF SERUM POTASSIUM (09/06/17) ASSAY OF TROPONIN QUANT (09/06/17) ASSAY THYROID STIM HORMONE (08/29/17) BLOOD TRANSFUSION SERVICE (09/17/17) BLOOD TYPING SEROLOGIC ABO (09/17/17) BLOOD TYPING SEROLOGIC RH(D) (09/17/17) C-REACTIVE PROTEIN (09/06/17) CHEST X-RAY 1 VIEW FRONTAL (08/29/17) COMPATIBILITY TEST ANTIGLOB (09/17/17) COMPLETE CBC W/AUTO DIFF WBC (12/10/18) COMPREHEN METABOLIC PANEL (09/06/17) CT HEAD/BRAIN W/O DYE (09/06/17) ECG MONIT/REPRT UP TO 48 HRS (09/10/17) ECG MONIT/REPRT UP TO 48 HRS (09/10/17) ELECTROCARDIOGRAM TRACING (09/06/17) EMERGENCY DEPT VISIT (09/06/17) EMERGENCY DEPT VISIT (05/24/17) GAIT TRAINING THERAPY (09/06/17) HYDRATE IV INFUSION ADD-ON (09/06/17) HYDRATION IV INFUSION INIT (08/29/17) LAP VENT/ABD HERNIA REPAIR (12/10/18) METABOLIC PANEL TOTAL CA (09/06/17) OT EVAL MOD COMPLEX 45 MIN (09/06/17) PROTHROMBIN TIME (08/29/17) PT EVAL MOD COMPLEX 30 MIN (09/06/17) RBC ANTIBODY SCREEN (09/17/17) ROUTINE VENIPUNCTURE (12/10/18) THER/PROPH/DIAG INJ IV PUSH (09/06/17) THER/PROPH/DIAG IV INF ADDON (09/17/17) THER/PROPH/DIAG IV INF INIT (09/17/17) THERAPEUTIC ACTIVITIES (09/06/17) THERAPEUTIC EXERCISES (09/06/17) THROMBOPLASTIN TIME PARTIAL (08/29/17) URINALYSIS AUTO W/SCOPE (05/24/17) X-RAY EXAM OF SHOULDER (09/06/17) (1) Upper GI hemorrhage SNOMED Code(s): 64985735 Code(s): K92.2 - GASTROINTESTINAL HEMORRHAGE, UNSPECIFIED Current Visit: Yes Problem List Initiated/Reviewed/Updated: Yes Plan: - continue NPO - IV protonix - transfuse PRBC x2 - trend Hg every 4-6 hours - hold Xarelto - will continue to evaluate need for inpatient EGD - remaining medical management per primary Susy Mixon MD General surgery
[2019-11-30] MEDS ORDERED: Furosemide 20 MG/2 ML VIAL IVPUSH ONE (17:30)
[2019-11-30] MEDS: Metoprolol Succinate 50 MG Tab.ER PO SCH (20:34)
[2019-11-30] MEDS: Diltiazem 180 MG Cap.CD PO SCH (20:34)
[2019-11-30] MEDS: Sodium Chloride 0.9% 1,000 ML IV SCH (21:34)
[2019-12-01] MEDS: Pantoprazole 80 MG in Sodium Chloride 0.9% 100 ML IV SCH ×3 (00:37→20:45)
--- NOTE | 2019-12-01 05:53 | PCM.CONSN ---
- General Info Date of Service: 12/01/19 Admission Dx/Problem (Free Text): Admission Diagnosis/Problem Admission Diagnosis/Problem Gastric hemorrhage Functional Status: Reports: Ambulating, Urinating, Other (feeling improved after blood transfusions. No longer feeling dizzy. No bowel movements.) - Patient Data Vitals - Most Recent: Last Vital Signs Temp 36.6 C 12/01/19 04:00 Pulse 85 11/30/19 20:34 Resp 16 12/01/19 04:00 BP 110/57 L 12/01/19 04:00 Pulse Ox 92 L 12/01/19 04:01 Weight - Most Recent: 95.663 kg I&O - Last 24 Hours: Intake & Output 11/30/19 11/30/19 12/01/19 14:59 22:59 06:59 Intake Total 0 880 810 Output Total 500 2150 400 Balance -500 -1270 410 Lab Results Last 24 Hours: Laboratory Results - last 24 hr 11/30/19 11/30/19 11/30/19 Range/Units 10:35 10:35 10:35 WBC 7.47 (3.98-10.04) K/mm3 RBC 2.41 L (3.98-5.22) M/mm3 Hgb 6.6 L* D (11.2-15.7) gm/dl Hct 21.9 L (34.1-44.9) % MCV 90.9 D (79.4-94.8) fl MCH 27.4 (25.6-32.2) pg MCHC 30.1 L (32.2-35.5) g/dl RDW Std Deviation 51.9 H (36.4-46.3) fL Plt Count 261 (182-369) K/mm3 MPV 11.4 (9.4-12.3) fl Neut % (Auto) 72.2 H (34.0-71.1) % Lymph % (Auto) 12.6 L (19.3-51.7) % [place] % (Auto) 10.6 (4.7-12.5) % Eos % (Auto) 3.6 (0.7-5.8) Baso % (Auto) 0.3 (0.1-1.2) % Neut # (Auto) 5.40 (1.56-6.13) K/mm3 Lymph # (Auto) 0.94 L (1.18-3.74) K/mm3 [place] # (Auto) 0.79 H (0.24-0.36) K/mm3 Eos # (Auto) 0.27 (0.04-0.36) K/mm3 Baso # (Auto) 0.02 (0.01-0.08) K/mm3 Manual Slide Review Abnormal smear PT (9.7-12.0) SECONDS INR APTT (22-31) SECONDS Sodium 134 L (136-145) mEq/L Potassium 3.9 (3.5-5.1) mEq/L Chloride 101 (98-107) mEq/L Carbon Dioxide 25 (21-32) mEq/L Anion Gap 11.9 (5-15) BUN 29 H (7-18) mg/dL Creatinine 1.4 H (0.55-1.02) mg/dL Est Cr Clr Drug Dosing 33.50 mL/min Estimated GFR (MDRD) 37 (>60) mL/min BUN/Creatinine Ratio 20.7 H (14-18) Glucose 106 (83-115) mg/dL Calcium 9.3 (8.5-10.1) mg/dL Magnesium (1.8-2.4) mg/dl Total Bilirubin 0.4 (0.2-1.0) mg/dL AST 20 (15-37) U/L ALT 29 (14-59) U/L Alkaline Phosphatase 101 (46-116) U/L Total Protein 6.2 L (6.4-8.2) g/dl Albumin 2.8 L (3.4-5.0) g/dl Globulin 3.4 gm/dL Albumin/Globulin Ratio 0.8 L (1-2) Blood Type O POSITIVE Gel Antibody Screen Negative Crossmatch See Detail 11/30/19 11/30/19 11/30/19 Range/Units 10:35 15:10 21:20 WBC (3.98-10.04) K/mm3 RBC (3.98-5.22) M/mm3 Hgb 8.8 L D (11.2-15.7) gm/dl Hct 27.8 L (34.1-44.9) % MCV (79.4-94.8) fl MCH (25.6-32.2) pg MCHC (32.2-35.5) g/dl RDW Std Deviation (36.4-46.3) fL Plt Count (182-369) K/mm3 MPV (9.4-12.3) fl Neut % (Auto) (34.0-71.1) % Lymph % (Auto) (19.3-51.7) % [place] % (Auto) (4.7-12.5) % Eos % (Auto) (0.7-5.8) Baso % (Auto) (0.1-1.2) % Neut # (Auto) (1.56-6.13) K/mm3 Lymph # (Auto) (1.18-3.74) K/mm3 [place] # (Auto) (0.24-0.36) K/mm3 Eos # (Auto) (0.04-0.36) K/mm3 Baso # (Auto) (0.01-0.08) K/mm3 Manual Slide Review PT 13.6 H (9.7-12.0) SECONDS INR 1.26 APTT 29 (22-31) SECONDS Sodium (136-145) mEq/L Potassium (3.5-5.1) mEq/L Chloride (98-107) mEq/L Carbon Dioxide (21-32) mEq/L Anion Gap (5-15) BUN (7-18) mg/dL Creatinine (0.55-1.02) mg/dL Est Cr Clr Drug Dosing mL/min Estimated GFR (MDRD) (>60) mL/min BUN/Creatinine Ratio (14-18) Glucose (83-115) mg/dL Calcium (8.5-10.1) mg/dL Magnesium 1.8 (1.8-2.4) mg/dl Total Bilirubin (0.2-1.0) mg/dL AST (15-37) U/L ALT (14-59) U/L Alkaline Phosphatase (46-116) U/L Total Protein (6.4-8.2) g/dl Albumin (3.4-5.0) g/dl Globulin gm/dL Albumin/Globulin Ratio (1-2) Blood Type Gel Antibody Screen Crossmatch 12/01/19 Range/Units 02:00 WBC (3.98-10.04) K/mm3 RBC (3.98-5.22) M/mm3 Hgb 8.5 L (11.2-15.7) gm/dl Hct 27.2 L (34.1-44.9) % MCV (79.4-94.8) fl MCH (25.6-32.2) pg MCHC (32.2-35.5) g/dl RDW Std Deviation (36.4-46.3) fL Plt Count (182-369) K/mm3 MPV (9.4-12.3) fl Neut % (Auto) (34.0-71.1) % Lymph % (Auto) (19.3-51.7) % [place] % (Auto) (4.7-12.5) % Eos % (Auto) (0.7-5.8) Baso % (Auto) (0.1-1.2) % Neut # (Auto) (1.56-6.13) K/mm3 Lymph # (Auto) (1.18-3.74) K/mm3 [place] # (Auto) (0.24-0.36) K/mm3 Eos # (Auto) (0.04-0.36) K/mm3 Baso # (Auto) (0.01-0.08) K/mm3 Manual Slide Review PT (9.7-12.0) SECONDS INR APTT (22-31) SECONDS Sodium (136-145) mEq/L Potassium (3.5-5.1) mEq/L Chloride (98-107) mEq/L Carbon Dioxide (21-32) mEq/L Anion Gap (5-15) BUN (7-18) mg/dL Creatinine (0.55-1.02) mg/dL Est Cr Clr Drug Dosing mL/min Estimated GFR (MDRD) (>60) mL/min BUN/Creatinine Ratio (14-18) Glucose (83-115) mg/dL Calcium (8.5-10.1) mg/dL Magnesium (1.8-2.4) mg/dl Total Bilirubin (0.2-1.0) mg/dL AST (15-37) U/L ALT (14-59) U/L Alkaline Phosphatase (46-116) U/L Total Protein (6.4-8.2) g/dl Albumin (3.4-5.0) g/dl Globulin gm/dL Albumin/Globulin Ratio (1-2) Blood Type Gel Antibody Screen Crossmatch Med Orders - Current: Current Medications Acetaminophen (Tylenol) 650 mg PO Q4H PRN PRN Reason: Pain (Mild 1-3)/fever Hydrocodone Bitart/Acetaminophen ([place] 325-5 Mg) 1 tab PO Q6H PRN PRN Reason: Pain (moderate 4-6) Diltiazem HCl (Cardizem Cd) 180 mg PO BID [facility] Last Admin: 11/30/19 20:34 Dose: 180 mg Hydrochlorothiazide (Hydrochlorothiazide) 25 mg PO DAILY [facility] Sodium Chloride (Normal Saline) 250 mls @ 150 mls/hr IV ASDIRECTED [facility] Last Infusion: 11/30/19 17:18 Dose: 0 mls/hr Pantoprazole Sodium 80 mg/ (Sodium Chloride) 100 mls @ 10 mls/hr IV Q10H [facility] Last Admin: 12/01/19 00:37 Dose: 10 mls/hr Sodium Chloride (Normal Saline) 1,000 mls @ 100 mls/hr IV ASDIRECTED [facility] Last Admin: 11/30/19 21:34 Dose: 100 mls/hr Losartan Potassium (Cozaar) 100 mg PO DAILY [facility] Metoprolol Succinate (Toprol Xl) 50 mg PO BID [facility] Last Admin: 11/30/19 20:34 Dose: 50 mg Ondansetron HCl (Zofran) 4 mg IV Q4H PRN PRN Reason: Nausea/Vomiting Sodium Chloride (Saline Flush) 10 ml FLUSH ASDIRECTED PRN PRN Reason: Keep Vein Open Last Admin: 11/30/19 10:33 Dose: 10 ml Discontinued Medications Furosemide (Lasix) 20 mg IVPUSH NOW ONE Stop: 11/30/19 17:31 Last Admin: 11/30/19 16:36 Dose: 20 mg Sodium Chloride (Normal Saline) 1,000 mls @ 999 mls/hr IV ONETIME [facility] Last Admin: 11/30/19 10:33 Dose: 999 mls/hr Pantoprazole Sodium 80 mg/ (Sodium Chloride) 100 mls @ 10 mls/hr IV Q10H [facility] Last Admin: 11/30/19 14:02 Dose: Not Given Influenza Virus Vaccine (Fluzone High-Dose Syringe) 180 mcg IM .ONCE ONE Stop: 11/30/19 10:31 Last Admin: 11/30/19 10:51 Dose: 180 mcg Pantoprazole Sodium (Protonix Iv) 80 mg IVPUSH BOLUS ONE Stop: 11/30/19 14:01 Last Admin: 11/30/19 14:00 Dose: 80 mg - Exam General: Alert, Oriented Neck: Supple Lungs: Normal Respiratory Effort GI/Abdominal Exam: Soft, Non-Tender Sepsis Event Note - Evaluation Sepsis Screening Result: No Definite Risk - Focused Exam Vital Signs: Vital Signs Temp Temp Pulse Resp BP BP Pulse Ox 12/01/19 04:01 92 L 12/01/19 04:00 36.6 C 16 110/57 L 92 L 12/01/19 03:00 95 12/01/19 02:00 96 12/01/19 01:00 94 L 12/01/19 00:00 36.6 C 16 122/67 99 11/30/19 23:00 93 L 11/30/19 21:00 97 11/30/19 20:34 85 136/63 11/30/19 20:32 94 L 11/30/19 20:00 37.1 C 37.1 C 16 133/71 98 Date Exam was Performed: 12/01/19 Time Exam was Performed: 05:54 Consult PN Assessment/Plan Procedures: Procedures ASSAY OF MAGNESIUM (09/06/17) ASSAY OF SERUM POTASSIUM (09/06/17) ASSAY OF TROPONIN QUANT (09/06/17) ASSAY THYROID STIM HORMONE (08/29/17) BLOOD TRANSFUSION SERVICE (09/17/17) BLOOD TYPING SEROLOGIC ABO (09/17/17) BLOOD TYPING SEROLOGIC RH(D) (09/17/17) C-REACTIVE PROTEIN (09/06/17) CHEST X-RAY 1 VIEW FRONTAL (08/29/17) COMPATIBILITY TEST ANTIGLOB (09/17/17) COMPLETE CBC W/AUTO DIFF WBC (12/10/18) COMPREHEN METABOLIC PANEL (09/06/17) CT HEAD/BRAIN W/O DYE (09/06/17) ECG MONIT/REPRT UP TO 48 HRS (09/10/17) ECG MONIT/REPRT UP TO 48 HRS (09/10/17) ELECTROCARDIOGRAM TRACING (09/06/17) EMERGENCY DEPT VISIT (09/06/17) EMERGENCY DEPT VISIT (05/24/17) GAIT TRAINING THERAPY (09/06/17) HYDRATE IV INFUSION ADD-ON (09/06/17) HYDRATION IV INFUSION INIT (08/29/17) LAP VENT/ABD HERNIA REPAIR (12/10/18) METABOLIC PANEL TOTAL CA (09/06/17) OT EVAL MOD COMPLEX 45 MIN (09/06/17) PROTHROMBIN TIME (08/29/17) PT EVAL MOD COMPLEX 30 MIN (09/06/17) RBC ANTIBODY SCREEN (09/17/17) ROUTINE VENIPUNCTURE (12/10/18) THER/PROPH/DIAG INJ IV PUSH (09/06/17) THER/PROPH/DIAG IV INF ADDON (09/17/17) THER/PROPH/DIAG IV INF INIT (09/17/17) THERAPEUTIC ACTIVITIES (09/06/17) THERAPEUTIC EXERCISES (09/06/17) THROMBOPLASTIN TIME PARTIAL (08/29/17) URINALYSIS AUTO W/SCOPE (05/24/17) X-RAY EXAM OF SHOULDER (09/06/17) (1) Upper GI hemorrhage SNOMED Code(s): 98204773 Code(s): K92.2 - GASTROINTESTINAL HEMORRHAGE, UNSPECIFIED Current Visit: Yes Problem List Initiated/Reviewed/Updated: Yes Plan: - continue trending Hg. Transfuse as needed - PPI BID - may start clears when Hg stable for 8-12 hours - H. pylori testing when patient is able to provide a stool sample Susy Mixon MD General Surgery
[2019-12-01] MEDS: Sodium Chloride 0.9% 1,000 ML IV SCH (07:30)
[2019-12-01] MEDS ORDERED: Magnesium Sulfate/Water 4 GM in Premix Bag 1 BAG IV ONE (07:41)
[2019-12-01] MEDS: Metoprolol Succinate 50 MG Tab.ER PO SCH ×2 (08:30→20:44)
[2019-12-01] MEDS: Hydrochlorothiazide 25 MG Tab PO SCH (08:30)
[2019-12-01] MEDS: Diltiazem 180 MG Cap.CD PO SCH ×2 (08:30→20:44)
[2019-12-01] MEDS: Losartan 100 MG Tab PO SCH (08:30)
--- NOTE | 2019-12-01 11:16 | PCM.PN ---
- General Info Date of Service: 12/01/19 Admission Dx/Problem (Free Text): Admission Diagnosis/Problem Admission Diagnosis/Problem Gastric hemorrhage Subjective Update: She has had a stable hemoglobin overnight. She states that she is feeling better and no longer dizzy when she stands up. Stools are reportedly brown without signs of blood. Functional Status: Reports: Pain Controlled - Review of Systems General: Reports: No Symptoms HEENT: Reports: No Symptoms Pulmonary: Reports: No Symptoms Cardiovascular: Reports: No Symptoms Gastrointestinal: Reports: No Symptoms Musculoskeletal: Reports: No Symptoms - Patient Data Vitals - Most Recent: Last Vital Signs Temp 97.8 F 12/01/19 08:00 Pulse 90 12/01/19 08:30 Resp 16 12/01/19 08:00 BP 119/62 12/01/19 08:30 Pulse Ox 97 12/01/19 08:00 Weight - Most Recent: 210 lb 14.4 oz I&O - Last 24 Hours: Intake & Output 11/30/19 12/01/19 12/01/19 22:59 06:59 14:59 Intake Total 980 810 Output Total 2150 400 Balance -1170 410 Lab Results Last 24 Hours: Laboratory Results - last 24 hr 11/30/19 11/30/19 11/30/19 Range/Units 10:35 10:35 10:35 Hgb (11.2-15.7) gm/dl Hct (34.1-44.9) % Manual Slide Review Abnormal smear PT (9.7-12.0) SECONDS INR APTT (22-31) SECONDS Sodium 134 L (136-145) mEq/L Potassium 3.9 (3.5-5.1) mEq/L Chloride 101 (98-107) mEq/L Carbon Dioxide 25 (21-32) mEq/L Anion Gap 11.9 (5-15) BUN 29 H (7-18) mg/dL Creatinine 1.4 H (0.55-1.02) mg/dL Est Cr Clr Drug Dosing 33.50 mL/min Estimated GFR (MDRD) 37 (>60) mL/min BUN/Creatinine Ratio 20.7 H (14-18) Glucose 106 (83-115) mg/dL Calcium 9.3 (8.5-10.1) mg/dL Magnesium (1.8-2.4) mg/dl Total Bilirubin 0.4 (0.2-1.0) mg/dL AST 20 (15-37) U/L ALT 29 (14-59) U/L Alkaline Phosphatase 101 (46-116) U/L Total Protein 6.2 L (6.4-8.2) g/dl Albumin 2.8 L (3.4-5.0) g/dl Globulin 3.4 gm/dL Albumin/Globulin Ratio 0.8 L (1-2) Blood Type O POSITIVE Gel Antibody Screen Negative Crossmatch See Detail 11/30/19 11/30/19 11/30/19 Range/Units 10:35 15:10 21:20 Hgb 8.8 L D (11.2-15.7) gm/dl Hct 27.8 L (34.1-44.9) % Manual Slide Review PT 13.6 H (9.7-12.0) SECONDS INR 1.26 APTT 29 (22-31) SECONDS Sodium (136-145) mEq/L Potassium (3.5-5.1) mEq/L Chloride (98-107) mEq/L Carbon Dioxide (21-32) mEq/L Anion Gap (5-15) BUN (7-18) mg/dL Creatinine (0.55-1.02) mg/dL Est Cr Clr Drug Dosing mL/min Estimated GFR (MDRD) (>60) mL/min BUN/Creatinine Ratio (14-18) Glucose (83-115) mg/dL Calcium (8.5-10.1) mg/dL Magnesium 1.8 (1.8-2.4) mg/dl Total Bilirubin (0.2-1.0) mg/dL AST (15-37) U/L ALT (14-59) U/L Alkaline Phosphatase (46-116) U/L Total Protein (6.4-8.2) g/dl Albumin (3.4-5.0) g/dl Globulin gm/dL Albumin/Globulin Ratio (1-2) Blood Type Gel Antibody Screen Crossmatch 12/01/19 12/01/19 12/01/19 Range/Units 02:00 05:55 05:58 Hgb 8.5 L 8.9 L (11.2-15.7) gm/dl Hct 27.2 L 27.4 L (34.1-44.9) % Manual Slide Review PT (9.7-12.0) SECONDS INR APTT (22-31) SECONDS Sodium 139 (136-145) mEq/L Potassium 3.8 (3.5-5.1) mEq/L Chloride 105 (98-107) mEq/L Carbon Dioxide 24 (21-32) mEq/L Anion Gap 13.8 (5-15) BUN 24 H (7-18) mg/dL Creatinine 1.4 H (0.55-1.02) mg/dL Est Cr Clr Drug Dosing 33.50 mL/min Estimated GFR (MDRD) 37 (>60) mL/min BUN/Creatinine Ratio 17.1 (14-18) Glucose 107 (83-115) mg/dL Calcium 9.2 (8.5-10.1) mg/dL Magnesium 1.6 L (1.8-2.4) mg/dl Total Bilirubin 0.9 (0.2-1.0) mg/dL AST 14 L (15-37) U/L ALT 29 (14-59) U/L Alkaline Phosphatase 111 (46-116) U/L Total Protein 6.2 L (6.4-8.2) g/dl Albumin 2.8 L (3.4-5.0) g/dl Globulin 3.4 gm/dL Albumin/Globulin Ratio 0.8 L (1-2) Blood Type Gel Antibody Screen Crossmatch 12/01/19 Range/Units 10:30 Hgb 9.8 L (11.2-15.7) gm/dl Hct 30.5 L (34.1-44.9) % Manual Slide Review PT (9.7-12.0) SECONDS INR APTT (22-31) SECONDS Sodium (136-145) mEq/L Potassium (3.5-5.1) mEq/L Chloride (98-107) mEq/L Carbon Dioxide (21-32) mEq/L Anion Gap (5-15) BUN (7-18) mg/dL Creatinine (0.55-1.02) mg/dL Est Cr Clr Drug Dosing mL/min Estimated GFR (MDRD) (>60) mL/min BUN/Creatinine Ratio (14-18) Glucose (83-115) mg/dL Calcium (8.5-10.1) mg/dL Magnesium (1.8-2.4) mg/dl Total Bilirubin (0.2-1.0) mg/dL AST (15-37) U/L ALT (14-59) U/L Alkaline Phosphatase (46-116) U/L Total Protein (6.4-8.2) g/dl Albumin (3.4-5.0) g/dl Globulin gm/dL Albumin/Globulin Ratio (1-2) Blood Type Gel Antibody Screen Crossmatch Med Orders - Current: Current Medications Acetaminophen (Tylenol) 650 mg PO Q4H PRN PRN Reason: Pain (Mild 1-3)/fever Hydrocodone Bitart/Acetaminophen ([place] 325-5 Mg) 1 tab PO Q6H PRN PRN Reason: Pain (moderate 4-6) Diltiazem HCl (Cardizem Cd) 180 mg PO BID [facility] Last Admin: 12/01/19 08:30 Dose: 180 mg Hydrochlorothiazide (Hydrochlorothiazide) 25 mg PO DAILY [facility] Last Admin: 12/01/19 08:30 Dose: 25 mg Sodium Chloride (Normal Saline) 250 mls @ 150 mls/hr IV ASDIRECTED [facility] Last Infusion: 11/30/19 17:18 Dose: 0 mls/hr Pantoprazole Sodium 80 mg/ (Sodium Chloride) 100 mls @ 10 mls/hr IV Q10H [facility] Last Admin: 12/01/19 00:37 Dose: 10 mls/hr Sodium Chloride (Normal Saline) 1,000 mls @ 100 mls/hr IV ASDIRECTED [facility] Last Admin: 12/01/19 07:30 Dose: 100 mls/hr Magnesium Sulfate 4 gm/ Premix 50 mls @ 12.5 mls/hr IV ONETIME ONE Stop: 12/01/19 11:40 Last Admin: 12/01/19 08:29 Dose: 12.5 mls/hr Losartan Potassium (Cozaar) 100 mg PO DAILY [facility] Last Admin: 12/01/19 08:30 Dose: 100 mg Metoprolol Succinate (Toprol Xl) 50 mg PO BID [facility] Last Admin: 12/01/19 08:30 Dose: 50 mg Ondansetron HCl (Zofran) 4 mg IV Q4H PRN PRN Reason: Nausea/Vomiting Sodium Chloride (Saline Flush) 10 ml FLUSH ASDIRECTED PRN PRN Reason: Keep Vein Open Last Admin: 11/30/19 10:33 Dose: 10 ml Discontinued Medications Furosemide (Lasix) 20 mg IVPUSH NOW ONE Stop: 11/30/19 17:31 Last Admin: 11/30/19 16:36 Dose: 20 mg Sodium Chloride (Normal Saline) 1,000 mls @ 999 mls/hr IV ONETIME [facility] Last Admin: 11/30/19 10:33 Dose: 999 mls/hr Pantoprazole Sodium 80 mg/ (Sodium Chloride) 100 mls @ 10 mls/hr IV Q10H [facility] Last Admin: 11/30/19 14:02 Dose: Not Given Influenza Virus Vaccine (Fluzone High-Dose Syringe) 180 mcg IM .ONCE ONE Stop: 11/30/19 10:31 Last Admin: 11/30/19 10:51 Dose: 180 mcg Pantoprazole Sodium (Protonix Iv) 80 mg IVPUSH BOLUS ONE Stop: 11/30/19 14:01 Last Admin: 11/30/19 14:00 Dose: 80 mg - Exam Quality Assessment: No: Supplemental Oxygen General: Alert, Oriented HEENT: Pupils Equal, Mucous Membr. Moist/[place] Neck: Supple Lungs: Clear to Auscultation, Normal Respiratory Effort Cardiovascular: Regular Rate, Regular Rhythm GI/Abdominal Exam: Normal Bowel Sounds, Soft, Non-Tender, No Organomegaly, No Distention, No Abnormal Bruit, No Mass Back Exam: Normal Inspection Extremities: Normal Inspection, Normal Range of Motion, Non-Tender, No Pedal Edema, Normal Capillary Refill Skin: Warm, Dry, Intact Neurological: No New Focal Deficit Psy/Mental Status: Alert, Normal Affect, Normal Mood Sepsis Event Note - Evaluation Sepsis Screening Result: No Definite Risk - Focused Exam Vital Signs: Vital Signs Temp Pulse Resp BP BP Pulse Ox 12/01/19 08:30 90 119/62 12/01/19 08:00 97.8 F 16 119/62 97 12/01/19 04:01 92 L 12/01/19 04:00 98 F 16 110/57 L 92 L 12/01/19 03:00 95 12/01/19 02:00 96 12/01/19 01:00 94 L 12/01/19 00:00 98 F 16 122/67 99 Date Exam was Performed: 12/01/19 Time Exam was Performed: 11:05 - Problem List Review Problem List Initiated/Reviewed/Updated: Yes - My Orders Last 24 Hours: My Active Orders 11/30/19 13:00 Transfuse PRBC [Transfuse Red Blood Cells] [COMM] Routine 11/30/19 13:45 Sodium Chloride 0.9% [Normal Saline] 250 ml IV ASDIRECTED 11/30/19 14:30 Up ad Lauren [RC] . DIRECTED VTE/DVT Education [RC] Acetaminophen [Tylenol] 650 mg PO Q4H PRN Ondansetron [Zofran] 4 mg IV Q4H PRN Resuscitation Status Routine 11/30/19 14:31 Sequential Compression Device [OM.PC] Per Unit Routine 11/30/19 14:33 Consult to Physician [CONS] Routine 11/30/19 14:34 Antiembolic Devices [RC] Notify Provider Consults [RC] .PRN 11/30/19 14:42 Acetaminophen/HYDROcodone [[place] 325-5 MG] 1 tab PO Q6H PRN 11/30/19 15:00 Pantoprazole [ProTONIX IV] 80 mg Sodium Chloride 0.9% [Normal Saline] 100 ml IV Q10H 11/30/19 20:41 Oxygen Therapy [RC] ASDIRECTED 11/30/19 20:45 Sodium Chloride 0.9% [Normal Saline] 1,000 ml IV ASDIRECTED 11/30/19 21:00 Diltiazem [Cardizem CD] 180 mg PO BID Metoprolol Succinate [Toprol XL] 50 mg PO BID 12/01/19 07:41 Magnesium Sulfate/Water [Magnesium Sulfate in Water Premix] 4 gm Premix Bag 1 bag IV ONETIME 12/01/19 08:59 Admission Status [Patient Status] [ADT] Routine 12/01/19 09:00 Losartan [Cozaar] 100 mg PO DAILY hydroCHLOROthiazide 25 mg PO DAILY 12/01/19 16:00 HGB [HEMOGLOBIN] [HEME] Timed 12/01/19 Breakfast Clear Liquid Diet [DIET] 12/02/19 05:11 COMPREHENSIVE METABOLIC PN,CMP [CHEM] AM MAGNESIUM [CHEM] AM 12/03/19 05:11 COMPREHENSIVE METABOLIC PN,CMP [CHEM] AM MAGNESIUM [CHEM] AM 12/04/19 05:11 COMPREHENSIVE METABOLIC PN,CMP [CHEM] AM MAGNESIUM [CHEM] AM 12/05/19 05:11 COMPREHENSIVE METABOLIC PN,CMP [CHEM] AM MAGNESIUM [CHEM] AM - Plan Plan:: Assessment * Upper GI bleed * Xarelto stopped * Hemoglobin 6.6 --> now 8.9 (recent 9.8 but now converted to finger stick because of difficulty with venous blood draws) * 2 units packed red blood cells given * Pantoprazole 80 mg bolus followed by 8mg/h IV drip * Surgery following. * Atrial fibrillation * Rate controlled with diltiazem and metoprolol * Xarelto held. * [id number] score 3: 3.2% yearly risk of stroke * Breast cancer 1 week post lumpectomy * Patient was off Xarelto for 5 days last week * History of urine cancer 2016 * GERD * On omeprazole 20 mg daily * Hypertension * On irbesartan 300 mg daily, metoprolol succinate 50 mg twice daily, diltiazem 24-hour ER 180 mg twice daily, hydrochlorothiazide 25 mg daily, losartan 100 mg daily Plan * Admit to ICU for close monitoring * Stop Xarelto * Clear liquids this am and lunch, then full liquids this evening. * Follow H&H every 6 hours * VTE prophylaxis with SCDs * CODE STATUS: Full code * Anticipated length of stay 2 to 3 days.
[2019-12-02] MEDS: Pantoprazole 80 MG in Sodium Chloride 0.9% 100 ML IV SCH ×2 (06:36→18:41)
[2019-12-02] MEDS: Diltiazem 180 MG Cap.CD PO SCH (08:52)
[2019-12-02] MEDS: Losartan 100 MG Tab PO SCH (08:52)
[2019-12-02] MEDS: Metoprolol Succinate 50 MG Tab.ER PO SCH (08:52)
[2019-12-02] MEDS: Hydrochlorothiazide 25 MG Tab PO SCH (08:53)
[2019-12-02 14:39] VITALS: BP 108/56; PULSE 86
--- NOTE | 2019-12-02 17:05 | PCM.DCSUM1 ---
Discharge Summary - Hospital Course HPI Initial Comments: Patient presented to the emergency room with a chief complaint of generalized weakness and dizziness when getting up. Patient has a past medical history for uterine cancer treated with chemotherapy and surgery in 2017, DVT during treatment of her uterine cancer in 2017, and breast cancer with a recent lumpectomy, atrial fibrillation and hypertension. Patient states that starting approximately 1 week ago, on the way to get a lumpectomy in [place], patient developed black stools. She states that since then it has been dark brown to black. Also on the way to [place] she had a burning in her epigastrium. Patient is on Xarelto for atrial fibrillation and stopped the Xarelto 3 days prior to her breast biopsy. Breast biopsy was on the , she stopped her Xarelto on the , and she restarted on the . Patient denies any NSAID use over the last year. She has had some congestion recently. On presentation to the emergency room patient was found to have a hemoglobin of 6.6. Emergency room provider did a rectal which was grossly positive for occult blood, but was brown stool. She was then typed and crossed for 2 units and transferred to the ICU. Diagnosis: Stroke: No - Discharge Data Discharge Date: 12/02/19 Discharge Disposition: Home, Self-Care 01 Condition: Good - Referral to Home Health Primary Care Physician: Lucía Duque MD - Discharge Diagnosis/Problem(s) (1) Upper GI hemorrhage SNOMED Code(s): 81722872 ICD Code: K92.2 - GASTROINTESTINAL HEMORRHAGE, UNSPECIFIED Status: Acute Current Visit: Yes - Patient Summary/Data Consults: Consultations 11/30/19 14:33 Consult to Physician [CONS] Routine Hospital Course: Patient was admitted to the ICU and had 2 units of packed red blood cells transfused. Bolus of Protonix followed by a Protonix drip was started. Patient 's hemoglobin stabilized and diet was advanced. Her hemoglobin stabilized between 8.[address] Cantrell was consulted from surgery and patient will follow up with Dr. Cantrell in 4 to 5 weeks with anticipated endoscopy. Patient will be discharged home on Protonix 40 mg p.o. twice daily. - Patient Instructions Diet: Regular Diet as Tolerated Driving: May Drive Today Showering/Bathing: May Shower Other/Special Instructions: Follow up with Dr. Cantrell in 4-5 weeks. Follow up with PCP next week and get a CBC. If you feel lightheaded or dizzy return to the ER. - Discharge Plan *PRESCRIPTION DRUG MONITORING PROGRAM REVIEWED*: No *COPY OF PRESCRIPTION DRUG MONITORING REPORT IN PATIENT PEDRO: No Prescriptions/Med Rec: Pantoprazole Sodium [Protonix] 40 mg PO BID #60 tablet. Home Medications: Home Meds RX: Irbesartan [Avapro] 300 mg PO DAILY 05/24/17 [History] RX: Metoprolol Succinate [Toprol XL] 50 mg PO BID #60 tab.er 09/10/17 [Rx] RX: Calcium Carb/Vitamin D3/Vit K1 [Viactiv Soft Chew] 1 tab PO BID 12/09/18 [ History] RX: Lysine 500 mg PO BID 12/09/18 [History] RX: dilTIAZem HCl [Diltiazem 24Hr ER (Cd)] 180 mg PO BID 12/09/18 [History] RX: hydroCHLOROthiazide [Hydrochlorothiazide] 25 mg PO DAILY 12/09/18 [History] RX: Acetaminophen/HYDROcodone [[place] 325-5 MG] 1 tab PO Q6H PRN 14 Days #40 tablet 12/10/18 [Rx] RX: Antiox.mv No.10/Omeg3s/Lut/Markie [I-Caps with Lutein-[place] 3 SFG] 2 cap PO DAILY 11/30/19 [History] RX: Hydrocortisone [Hydrocortisone 2.5% Crm] 1 applic TOP QID PRN 11/30/19 [ History] RX: Triamcinolone Acetonide [Triamcinolone Acetonide 0.1% Crm] 1 applic TOP DAILY PRN 11/30/19 [History] Pantoprazole Sodium [Protonix] 40 mg PO BID #60 tablet. 12/02/19 [Rx] Oxygen Therapy Mode: Room Air Patient Handouts: Gastrointestinal Bleeding, [id number] Referrals: Lucía Duque MD [Primary Care Provider] - 12/09/19 1:30 pm ( Please see Dr. Nobles next December 09 @ 1:30pm. ) - Discharge Summary/Plan Comment DC Time >30 min.: Yes Discharge Summary/Plan Comment: Follow-up PCP 1 week. Follow-up with Dr. Addom in 4 to 5 weeks. If symptoms of dizziness, lightheadedness, fatigue, or shortness of breath occur return to the emergency room. - General Info Date of Service: 12/02/19 Admission Dx/Problem (Free Text: Admission Diagnosis/Problem Admission Diagnosis/Problem Gastric hemorrhage Subjective Update: Patient is doing well. She states she has had more energy and has been able to walk the halls. - Review of Systems General: Reports: No Symptoms HEENT: Reports: No Symptoms Pulmonary: Reports: No Symptoms Cardiovascular: Reports: No Symptoms Gastrointestinal: Reports: No Symptoms Musculoskeletal: Reports: No Symptoms - Patient Data Vitals - Most Recent: Last Vital Signs Temp 97.9 F 12/02/19 14:34 Pulse 86 12/02/19 14:34 Resp 20 12/02/19 14:34 BP 108/56 L 12/02/19 14:34 Pulse Ox 94 L 12/02/19 14:34 Weight - Most Recent: 214 lb 14.4 oz I&O - Last 24 hours: Intake & Output 12/02/19 12/02/19 12/02/19 06:59 14:59 22:59 Intake Total 536 1074 Output Total 1500 300 Balance -964 774 Lab Results - Last 24 hrs: Laboratory Results - last 24 hr 12/01/19 12/02/19 12/02/19 Range/Units 22:00 05:16 05:16 WBC 4.36 (3.98-10.04) K/mm3 RBC 3.11 L (3.98-5.22) M/mm3 Hgb 8.5 L 8.6 L (11.2-15.7) gm/dl Hct 27.6 L 27.9 L (34.1-44.9) % MCV 89.7 (79.4-94.8) fl MCH 27.7 (25.6-32.2) pg MCHC 30.8 L (32.2-35.5) g/dl RDW Std Deviation 51.3 H (36.4-46.3) fL Plt Count 237 (182-369) K/mm3 MPV 10.8 (9.4-12.3) fl Neut % (Auto) 69.1 (34.0-71.1) % Lymph % (Auto) 13.5 L (19.3-51.7) % [place] % (Auto) 11.9 (4.7-12.5) % Eos % (Auto) 4.8 (0.7-5.8) Baso % (Auto) 0.2 (0.1-1.2) % Neut # (Auto) 3.01 (1.56-6.13) K/mm3 Lymph # (Auto) 0.59 L (1.18-3.74) K/mm3 Hale # (Auto) 0.52 H (0.24-0.36) K/mm3 Eos # (Auto) 0.21 (0.04-0.36) K/mm3 Baso # (Auto) 0.01 (0.01-0.08) K/mm3 Sodium 139 (136-145) mEq/L Potassium 3.8 (3.5-5.1) mEq/L Chloride 106 (98-107) mEq/L Carbon Dioxide 23 (21-32) mEq/L Anion Gap 13.8 (5-15) BUN 18 (7-18) mg/dL Creatinine 1.4 H (0.55-1.02) mg/dL Est Cr Clr Drug Dosing 33.50 mL/min Estimated GFR (MDRD) 37 (>60) mL/min BUN/Creatinine Ratio 12.9 L (14-18) Glucose 107 (83-115) mg/dL Calcium 9.6 (8.5-10.1) mg/dL Magnesium 2.0 (1.8-2.4) mg/dl Total Bilirubin 0.6 (0.2-1.0) mg/dL AST 17 (15-37) U/L ALT 26 (14-59) U/L Alkaline Phosphatase 104 (46-116) U/L Total Protein 5.7 L (6.4-8.2) g/dl Albumin 2.6 L (3.4-5.0) g/dl Globulin 3.1 gm/dL Albumin/Globulin Ratio 0.8 L (1-2) 12/02/19 Range/Units 14:25 WBC (3.98-10.04) K/mm3 RBC (3.98-5.22) M/mm3 Hgb 9.1 L (11.2-15.7) gm/dl Hct 29.2 L (34.1-44.9) % MCV (79.4-94.8) fl MCH (25.6-32.2) pg MCHC (32.2-35.5) g/dl RDW Std Deviation (36.4-46.3) fL Plt Count (182-369) K/mm3 MPV (9.4-12.3) fl Neut % (Auto) (34.0-71.1) % Lymph % (Auto) (19.3-51.7) % Hale % (Auto) (4.7-12.5) % Eos % (Auto) (0.7-5.8) Baso % (Auto) (0.1-1.2) % Neut # (Auto) (1.56-6.13) K/mm3 Lymph # (Auto) (1.18-3.74) K/mm3 Hale # (Auto) (0.24-0.36) K/mm3 Eos # (Auto) (0.04-0.36) K/mm3 Baso # (Auto) (0.01-0.08) K/mm3 Sodium (136-145) mEq/L Potassium (3.5-5.1) mEq/L Chloride (98-107) mEq/L Carbon Dioxide (21-32) mEq/L Anion Gap (5-15) BUN (7-18) mg/dL Creatinine (0.55-1.02) mg/dL Est Cr Clr Drug Dosing mL/min Estimated GFR (MDRD) (>60) mL/min BUN/Creatinine Ratio (14-18) Glucose (83-115) mg/dL Calcium (8.5-10.1) mg/dL Magnesium (1.8-2.4) mg/dl Total Bilirubin (0.2-1.0) mg/dL AST (15-37) U/L ALT (14-59) U/L Alkaline Phosphatase (46-116) U/L Total Protein (6.4-8.2) g/dl Albumin (3.4-5.0) g/dl Globulin gm/dL Albumin/Globulin Ratio (1-2) Med Orders - Current: Current Medications Acetaminophen (Tylenol) 650 mg PO Q4H PRN PRN Reason: Pain (Mild 1-3)/fever Hydrocodone Bitart/Acetaminophen ([place] 325-5 Mg) 1 tab PO Q6H PRN PRN Reason: Pain (moderate 4-6) Diltiazem HCl (Cardizem Cd) 180 mg PO BID [facility] Last Admin: 12/02/19 08:52 Dose: 180 mg Hydrochlorothiazide (Hydrochlorothiazide) 25 mg PO DAILY [facility] Last Admin: 12/02/19 08:53 Dose: 25 mg Pantoprazole Sodium 80 mg/ (Sodium Chloride) 100 mls @ 10 mls/hr IV Q10H [facility] Last Admin: 12/02/19 06:36 Dose: 10 mls/hr Losartan Potassium (Cozaar) 100 mg PO DAILY [facility] Last Admin: 12/02/19 08:52 Dose: 100 mg Metoprolol Succinate (Toprol Xl) 50 mg PO BID [facility] Last Admin: 12/02/19 08:52 Dose: 50 mg Ondansetron HCl (Zofran) 4 mg IV Q4H PRN PRN Reason: Nausea/Vomiting Sodium Chloride (Saline Flush) 10 ml FLUSH ASDIRECTED PRN PRN Reason: Keep Vein Open Last Admin: 11/30/19 10:33 Dose: 10 ml Discontinued Medications Furosemide (Lasix) 20 mg IVPUSH NOW ONE Stop: 11/30/19 17:31 Last Admin: 11/30/19 16:36 Dose: 20 mg Sodium Chloride (Normal Saline) 1,000 mls @ 999 mls/hr IV ONETIME [facility] Last Admin: 11/30/19 10:33 Dose: 999 mls/hr Pantoprazole Sodium 80 mg/ (Sodium Chloride) 100 mls @ 10 mls/hr IV Q10H [facility] Last Admin: 11/30/19 14:02 Dose: Not Given Sodium Chloride (Normal Saline) 250 mls @ 150 mls/hr IV ASDIRECTED [facility] Last Infusion: 11/30/19 17:18 Dose: 0 mls/hr Sodium Chloride (Normal Saline) 1,000 mls @ 100 mls/hr IV ASDIRECTED [facility] Last Admin: 12/01/19 07:30 Dose: 100 mls/hr Magnesium Sulfate 4 gm/ Premix 50 mls @ 12.5 mls/hr IV ONETIME ONE Stop: 12/01/19 11:40 Last Admin: 12/01/19 08:29 Dose: 12.5 mls/hr Influenza Virus Vaccine (Fluzone High-Dose Syringe) 180 mcg IM .ONCE ONE Stop: 11/30/19 10:31 Last Admin: 11/30/19 10:51 Dose: 180 mcg Pantoprazole Sodium (Protonix Iv) 80 mg IVPUSH BOLUS ONE Stop: 11/30/19 14:01 Last Admin: 11/30/19 14:00 Dose: 80 mg - Exam Quality Assessment: Denies: Supplemental Oxygen General: Reports: Alert, Oriented HEENT: Reports: Pupils Equal, Mucous Membr. Moist/[place] Neck: Reports: Supple Lungs: Reports: Clear to Auscultation, Normal Respiratory Effort Cardiovascular: Reports: Regular Rate, Regular Rhythm GI/Abdominal Exam: Normal Bowel Sounds, Soft, Non-Tender, No Organomegaly, No Distention Back Exam: Reports: Normal Inspection Extremities: Normal Inspection, Normal Range of Motion, Non-Tender, No Pedal Edema Psy/Mental Status: Reports: Alert, Normal Affect, Normal Mood
== END 2019-12-02 18:23 | disposition home or self-care (01) | DRG 378 ==
LOC: JD.ED 09:24 → JD.ICU 12:00 → JD.MS 12-01 15:47
PROVIDERS: ADMIT Family Medicine; ATTEND Family Medicine
PROC: 30233N1 Transfusion of Nonautologous Red Blood Cells into Peripheral Vein, Percutaneous Approach (ICD-10-PCS; principal; 2019-11-30)
PROC: 3E02340 Introduction of Influenza Vaccine into Muscle, Percutaneous Approach (ICD-10-PCS; 2019-11-30)
DX: K92.2 Gastrointestinal hemorrhage, unspecified (principal); D62 Acute posthemorrhagic anemia; D64.9 Anemia, unspecified; C50.919 Malignant neoplasm of unspecified site of unspecified female breast; H54.7 Unspecified visual loss; L71.0 Perioral dermatitis; I48.91 Unspecified atrial fibrillation; I10 Essential (primary) hypertension; K43.2 Incisional hernia without obstruction or gangrene; F32.9 Major depressive disorder, single episode, unspecified; E66.9 Obesity, unspecified; Z86.711 Personal history of pulmonary embolism; K21.9 Gastro-esophageal reflux disease without esophagitis; Z98.49 Cataract extraction status, unspecified eye; Z87.891 Personal history of nicotine dependence; E61.1 Iron deficiency; Z98.42 Cataract extraction status, left eye; Z98.41 Cataract extraction status, right eye; Z86.718 Personal history of other venous thrombosis and embolism; Z90.49 Acquired absence of other specified parts of digestive tract; Z90.710 Acquired absence of both cervix and uterus; Z85.42 Personal history of malignant neoplasm of other parts of uterus; Z79.01 Long term (current) use of anticoagulants; Z79.899 Other long term (current) drug therapy; Z68.34 Body mass index [BMI] 34.0-34.9, adult; Z92.21 Personal history of antineoplastic chemotherapy; Z23 Encounter for immunization
CPT/HCPCS: 36415; 80053; 83735; 85025; 86850; 86900; 86901; 86922; 90662; 93005; 96360; 99285; G0008 ×2; J7030; 36430; 85014; 85018; 85610; 85730; 93010; 96361; 96365; 96375; 99222; 99232; 99238; A9270-GY; C9113; J3475; J7050; P9016

== ENCOUNTER 2021-01-09 14:52 | Emergency (ER) | payer MEDICARE, OTHER ==
--- NOTE | 2021-01-09 15:28 | EDM.PDOC ---
ED HPI GENERAL MEDICAL PROBLEM - General Chief Complaint: General Stated Complaint: WEAK/CHILLS/FATIGUE Time Seen by Provider: 01/09/21 15:08 Source of Information: Reports: Patient, RN Notes Reviewed History Limitations: Reports: No Limitations - History of Present Illness INITIAL COMMENTS - FREE TEXT/NARRATIVE: Patient is a 75-year-old female presenting to the emergency department with complaints of a 7-day history of increased fatigue chills. She reports that she gets exhausted easily. While doing chores, she has to take breaks frequently as she gets tired. 3 days ago, she did have an episode of vomiting. She states that she has been more gassy than normal and belches frequently. She also states that her stools are more yellow in color than normal. Since the vomiting 3 days ago, her appetite has been good and she is had no further nausea or vomiting. denies any fever, chills, nausea, vomiting, diarrhea, chest pain, shortness of breath, dysuria, or abdominal pain. Of note, patient did receive her first Covid vaccination on December 28. She states from the time she received the vaccine up until last , she was feeling well. 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 Vital signs on triage were found to be stable. She is afebrile at 98.9, pulse 96, blood pressure 140/78, respiratory rate 18, oxygen 95% on room air. s Pain Score (Numeric/FACES): 5 - Related Data Allergies Allergy/AdvReac Type Severity Reaction Status Date / Time No Known Allergies Allergy Verified 01/09/21 15:02 Home Meds: Home Meds Irbesartan [Avapro] 300 mg PO DAILY 05/24/17 [History] Metoprolol Succinate [Toprol XL] 50 mg PO BID #60 tab.er 09/10/17 [Rx] dilTIAZem HCl [Diltiazem 24Hr ER (Cd)] 180 mg PO BID 12/09/18 [History] hydroCHLOROthiazide [Hydrochlorothiazide] 25 mg PO DAILY 12/09/18 [History] Letrozole 2.5 mg PO DAILY 01/09/21 [History] Levothyroxine 125 mcg PO ACBREAKFAST 01/09/21 [History] Magnesium Chloride [Slow-Mag] 71.5 mg PO BID 10 Days #20 tablet. 01/09/21 [Rx] Omeprazole 20 mg PO DAILY PRN 01/09/21 [History] Rivaroxaban [Xarelto] 20 mg PO DAILY 01/09/21 [History] Past Medical History HEENT History: Reports: Impaired Vision, Other (See Below) Other HEENT History: wears glasses, perioral dermatitis Cardiovascular History: Reports: Afib, Hypertension, Other (See Below) Other Cardiovascular History: bilateral lower leg edema Respiratory History: Reports: PE Gastrointestinal History: Reports: GERD, Other (See Below) Other Gastrointestinal History: incisional hernia Genitourinary History: Reports: Other (See Below) Other 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, diagnostic laparoscopy SANDBLASTER GLASS History: Reports: None Musculoskeletal History: Reports: None Neurological History: Reports: None Psychiatric History: Reports: Depression Endocrine/Metabolic History: Reports: Obesity/BMI 30+ Hematologic History: Reports: Anemia, Blood Transfusion(s), Iron Deficiency Immunologic History: Reports: None Oncologic (Cancer) History: Reports: Uterine Dermatologic History: Reports: Eczema - Infectious Disease History Infectious Disease History: Reports: Chicken Pox, Measles, Mumps - Past Surgical History Head Surgeries/Procedures: Reports: None HEENT Surgical History: Reports: Cataract Surgery, Other (See Below) Other HEENT Surgeries/Procedures: bilateral cataract surgery Cardiovascular Surgical History: Reports: None Respiratory Surgical History: Reports: None GI Surgical History: Reports: Cholecystectomy Female Surgical History: Reports: Hysterectomy, Salpingo-Oophorectomy Other Female Surgeries/Procedures: lumpectomy to right breast Endocrine Surgical History: Reports: None Other Endocrine Surgeries/Procedures: pt will be having a 2nd thyroid biopsy Neurological Surgical History: Reports: None Musculoskeletal Surgical History: Reports: None Oncologic Surgical History: Reports: Biopsy of Breast, Lumpectomy Other Oncologic Surgeries/Procedures: R breast Dermatological Surgical History: Reports: None Social & Family History - Family History Family Medical History: No Pertinent Family History Cardiac: Reports: Hypertension Endocrine/Metabolic: Reports: Diabetes, type II Oncologic: Reports: Skin - Tobacco Use Tobacco Use Status *Q: Never Tobacco User - Caffeine Use Caffeine Use: Reports: Coffee - Recreational Drug Use Recreational Drug Use: No ED ROS GENERAL - Review of Systems Review Of Systems: See Below Constitutional: Reports: Chills, Fatigue. Denies: Fever, Diaphoresis, Decreased Appetite HEENT: Reports: No Symptoms Respiratory: Reports: No Symptoms. Denies: Shortness of Breath, Cough Cardiovascular: Reports: No Symptoms. Denies: Chest Pain, Palpitations, Syncope Endocrine: Reports: No Symptoms GI/Abdominal: Reports: No Symptoms. Denies: Abdominal Pain, Diarrhea, Nausea, Vomiting : Reports: No Symptoms. Denies: Dysuria, Flank Pain Musculoskeletal: Reports: No Symptoms Skin: Reports: No Symptoms Neurological: Reports: No Symptoms. Denies: Dizziness, Headache Psychiatric: Reports: No Symptoms Hematologic/Lymphatic: Reports: No Symptoms Immunologic: Reports: No Symptoms ED EXAM, GENERAL - Physical Exam Exam: See Below Exam Limited By: No Limitations General Appearance: Alert, WD/WN, No Apparent Distress Eye Exam: Bilateral Eye: Normal Inspection, PERRL Respiratory/Chest: No Respiratory Distress, Lungs Clear, Normal Breath Sounds, No Accessory Muscle Use, Chest Non-Tender Cardiovascular: Normal Peripheral Pulses, Regular Rate, Rhythm, No Edema, No Gallop, No JVD, No Murmur, No Rub GI/Abdominal: Normal Bowel Sounds, Soft, Non-Tender, No Organomegaly, No Distention, No Abnormal Bruit, No Mass Neurological: Alert, Oriented, CN II-XII Intact, Normal Cognition, Normal Gait, Normal Reflexes, No Motor/Sensory Deficits Psychiatric: Normal Affect, Normal Mood Skin Exam: Warm, Dry, Intact, Normal Color, No Rash #1 Interpretation EKG Date: 01/09/21 Time: 15:22 Rhythm: A-Fib Rate (Beats/Min): 96 [place]: Normal P-Wave: Absent QRS: Normal ST-T: Normal QT: Normal Course - Vital Signs Last Recorded V/S: Last Vital Signs Temp 98.9 F 01/09/21 14:58 Pulse 95 01/09/21 17:02 Resp 17 01/09/21 17:02 BP 139/74 01/09/21 17:02 Pulse Ox 94 L 01/09/21 17:02 - Orders/Labs/Meds Labs: Laboratory Tests 01/09/21 01/09/21 01/09/21 Range/Units 15:02 15:51 15:51 WBC 4.34 (3.98-10.04) K/mm3 RBC 4.08 (3.98-5.22) M/mm3 Hgb 11.9 D (11.2-15.7) gm/dl Hct 36.6 (34.1-44.9) % MCV 89.7 (79.4-94.8) fl MCH 29.2 (25.6-32.2) pg MCHC 32.5 (32.2-35.5) g/dl RDW Std Deviation 44.3 (36.4-46.3) fL Plt Count 238 (182-369) K/mm3 MPV 10.6 (9.4-12.3) fl Neut % (Auto) 76.3 H (34.0-71.1) % Lymph % (Auto) 10.6 L (19.3-51.7) % [place] % (Auto) 9.2 (4.7-12.5) % Eos % (Auto) 2.5 (0.7-5.8) Baso % (Auto) 0.7 (0.1-1.2) % Neut # (Auto) 3.31 (1.56-6.13) K/mm3 Lymph # (Auto) 0.46 L (1.18-3.74) K/mm3 [place] # (Auto) 0.40 H (0.24-0.36) K/mm3 Eos # (Auto) 0.11 (0.04-0.36) K/mm3 Baso # (Auto) 0.03 (0.01-0.08) K/mm3 Sodium 137 (136-145) mEq/L Potassium 3.7 (3.5-5.1) mEq/L Chloride 98 (98-107) mEq/L Carbon Dioxide 33 H D (21-32) mEq/L Anion Gap 9.7 (5-15) BUN 24 H (7-18) mg/dL Creatinine 1.7 H (0.55-1.02) mg/dL Est Cr Clr Drug Dosing 26.12 mL/min Estimated GFR (MDRD) 29 (>60) mL/min BUN/Creatinine Ratio 14.1 (14-18) Glucose 137 H (83-115) mg/dL Calcium 11.4 H D (8.5-10.1) mg/dL Magnesium 1.5 L (1.8-2.4) mg/dl Total Bilirubin 0.6 (0.2-1.0) mg/dL AST 36 (15-37) U/L ALT 45 (14-59) U/L Alkaline Phosphatase 95 (46-116) U/L Troponin I 0.020 (0.00-0.056) ng/mL C-Reactive Protein 3.1 H* (<1.0) mg/dL Total Protein 6.8 (6.4-8.2) g/dl Albumin 2.9 L (3.4-5.0) g/dl Globulin 3.9 gm/dL Albumin/Globulin Ratio 0.7 L (1-2) Free T4 1.52 H (0.76-1.46) ng/dL TSH 3rd Generation 4.395 H (0.358-3.74) uIU/mL Urine Color (Yellow) Urine Appearance (Clear) Urine pH (5.0-8.0) Ur Specific [place] (1.005-1.030) Urine Protein (Negative) Urine Glucose (UA) (Negative) Urine Ketones (Negative) Urine Occult Blood (Negative) Urine Nitrite (Negative) Urine Bilirubin (Negative) Urine Urobilinogen (0.2-1.0) Ur Leukocyte Esterase (Negative) U Hyaline Cast (Auto) (0-5) /lpf Urine RBC (0-5) /hpf Urine WBC (0-5) /hpf Ur Squamous Epith Cells (0-5) /hpf Urine Bacteria (FEW) /hpf Urine Mucus (FEW) /hpf Influenza Type A RNA Negative (NEGATIVE) Influenza Type B RNA Negative (NEGATIVE) SARS-CoV-2 RNA ([place]) Negative (NEGATIVE) 01/09/21 Range/Units 16:20 WBC (3.98-10.04) K/mm3 RBC (3.98-5.22) M/mm3 Hgb (11.2-15.7) gm/dl Hct (34.1-44.9) % MCV (79.4-94.8) fl MCH (25.6-32.2) pg MCHC (32.2-35.5) g/dl RDW Std Deviation (36.4-46.3) fL Plt Count (182-369) K/mm3 MPV (9.4-12.3) fl Neut % (Auto) (34.0-71.1) % Lymph % (Auto) (19.3-51.7) % [place] % (Auto) (4.7-12.5) % Eos % (Auto) (0.7-5.8) Baso % (Auto) (0.1-1.2) % Neut # (Auto) (1.56-6.13) K/mm3 Lymph # (Auto) (1.18-3.74) K/mm3 [place] # (Auto) (0.24-0.36) K/mm3 Eos # (Auto) (0.04-0.36) K/mm3 Baso # (Auto) (0.01-0.08) K/mm3 Sodium (136-145) mEq/L Potassium (3.5-5.1) mEq/L Chloride (98-107) mEq/L Carbon Dioxide (21-32) mEq/L Anion Gap (5-15) BUN (7-18) mg/dL Creatinine (0.55-1.02) mg/dL Est Cr Clr Drug Dosing mL/min Estimated GFR (MDRD) (>60) mL/min BUN/Creatinine Ratio (14-18) Glucose (83-115) mg/dL Calcium (8.5-10.1) mg/dL Magnesium (1.8-2.4) mg/dl Total Bilirubin (0.2-1.0) mg/dL AST (15-37) U/L ALT (14-59) U/L Alkaline Phosphatase (46-116) U/L Troponin I (0.00-0.056) ng/mL C-Reactive Protein (<1.0) mg/dL Total Protein (6.4-8.2) g/dl Albumin (3.4-5.0) g/dl Globulin gm/dL Albumin/Globulin Ratio (1-2) Free T4 (0.76-1.46) ng/dL TSH 3rd Generation (0.358-3.74) uIU/mL Urine Color Yellow (Yellow) Urine Appearance Clear (Clear) Urine pH 8.5 H (5.0-8.0) Ur Specific [place] 1.020 (1.005-1.030) Urine Protein Trace H (Negative) Urine Glucose (UA) Negative (Negative) Urine Ketones Negative (Negative) Urine Occult Blood Negative (Negative) Urine Nitrite Negative (Negative) Urine Bilirubin Negative (Negative) Urine Urobilinogen 0.2 (0.2-1.0) Ur Leukocyte Esterase Negative (Negative) U Hyaline Cast (Auto) 10-20 H (0-5) /lpf Urine RBC 0-5 (0-5) /hpf Urine WBC 0-5 (0-5) /hpf Ur Squamous Epith Cells 0-5 (0-5) /hpf Urine Bacteria Moderate H (FEW) /hpf Urine Mucus Few (FEW) /hpf Influenza Type A RNA (NEGATIVE) Influenza Type B RNA (NEGATIVE) SARS-CoV-2 RNA ([place]) (NEGATIVE) - Re-Assessments/Exams Free Text/Narrative Re-Assessment/Exam: Patient is a 75-year-old female presenting to the emergency department with complaints of a 7-day history of increased fatigue and tiring easily. 3 days ago she did have one episode of vomiting but has felt well since that time. Appetite has been normal. Denies any chest pain or shortness of breath. She is had no fever or chills. Exam findings are grossly unremarkable. She has A. fib which is chronic for her it is rate controlled. I have ordered blood work including CBC, CMP, CRP, troponin, chest x-ray, EKG, urinalysis. 01/09/21 16:52 Hematology was significant for CO2 minimally elevated at 33, BUN 24, creatinine 1.7, CRP 3.1. Magnesium was low at 1.5. Urinalysis was negative for infection. Covid and influenza are negative. Results discussed with patient. Discussed that she may be fighting off a viral illness given that she did have the episode of vomiting. Gastroenteritis is currently circulating. I will send a prescription for Slow-Mag twice daily for 10 days with a recommendation that she follow-up with her primary care after treatment to have her magnesium rechecked. Discharge instructions as documented. Departure - Departure Time of Disposition: 16:53 Disposition: Home, Self-Care 01 Condition: Good Clinical Impression: Hypomagnesemia Fatigue Qualifiers: Fatigue type: unspecified Qualified Code(s): R53.83 - Other fatigue - Discharge Information *PRESCRIPTION DRUG MONITORING PROGRAM REVIEWED*: No *COPY OF PRESCRIPTION DRUG MONITORING REPORT IN PATIENT PEDRO: No Prescriptions: Magnesium Chloride [Slow-Mag] 71.5 mg PO BID 10 Days #20 tablet. Instructions: Hypomagnesemia Referrals: Lucía Duque MD [Primary Care Provider] - Forms: ED Department Discharge Additional Instructions: You were seen in the emergency department today for 7-day history of fatigue. Work-up included blood work, urinalysis, EKG, and chest x-ray. Results of your work-up were found to be overall normal with the exception of your magnesium levels being low. [facility]. Take this medication as prescribed. Recommend follow-up with your primary care provider after the 10-day treatment to have your blood work rechecked. Get enough rest over the next few days in order to your body to recuperate. If you should experience any new or worsening symptoms, please not hesitate to return to the emergency department for reevaluation. Sepsis Event Note (ED) - Evaluation Sepsis Screening Result: No Definite Risk - Focused Exam Vital Signs: Vital Signs Temp Pulse Resp BP Pulse Ox 01/09/21 17:02 95 17 139/74 94 L 01/09/21 14:58 98.9 F 96 18 140/78 95
[2021-01-09 15:51] LABS: CORONAVIRUS COVID-19 NAA NEGATIVE (NEGATIVE)
--- NOTE | 2021-01-09 15:55 | CR ---
Chest: 2 views of the chest were obtained. Comparison: Prior chest x-ray of 08/29/17. Heart size and mediastinum are normal. Slight scarring is noted within the lateral left costophrenic angle. Lungs are otherwise clear with no acute parenchymal change being seen. Surgical clips are seen overlying the right lower chest. Degenerative change is seen within the spine. Impression: 1. Findings as noted above. 2. Nothing acute is seen on 2 view chest x-ray. Diagnostic code #2
[2021-01-09 17:08] VITALS: BP 139/74; PULSE 95
== END 2021-01-09 17:02 | disposition home or self-care (01) ==
LOC: JD.ED 14:52
DX: E83.42 Hypomagnesemia (principal); I48.91 Unspecified atrial fibrillation; I10 Essential (primary) hypertension; K21.9 Gastro-esophageal reflux disease without esophagitis; E66.9 Obesity, unspecified; Z79.01 Long term (current) use of anticoagulants; Z79.899 Other long term (current) drug therapy; Z20.822 Contact with and (suspected) exposure to COVID-19; Z86.711 Personal history of pulmonary embolism
CPT/HCPCS: 0240U; 36415; 71046; 80053; 81001; 83735; 84439; 84443; 84484; 85025; 86140; 93005; 99284; 93010; 99283